=== PATIENT | male | born 1995 | race Caucasian/White ===

== ENCOUNTER 2017-01-15 06:23 | Inpatient (IN) | payer OTHER ==
[~2017-01-15] VITALS: Ht 180.3 cm; Wt 64.0 kg
[~2017-01-15 06:23] MED LIST: ADVI200C5 PO; ANBEEL MT; ARIP10TAB PO; ARIP1TAB2 PO; BUSP10TA PO; HYDR-3363 PO; MINI1CAP PO; PARO20TA3 PO; PRAZ1CAP PO
[2017-01-15] MEDS ORDERED: DIVA250T PO (10:35)
[2017-01-15] MEDS ORDERED: SERO50TA PO (10:35)
[2017-01-15] MEDS ORDERED: LITH300C PO (10:35)
[2017-01-15] MEDS ORDERED: DIVA125C5 PO (10:35)
[2017-01-15] MEDS ORDERED: ACETAMINOPHEN TAB 650MG DOSE (2X325MG) PO PRN (11:45)
[2017-01-15] MEDS ORDERED: traZODone 50 MG TAB PO PRN (11:45)
[2017-01-15] MEDS ORDERED: MAALOX 30 ML SUSP *UDC PO PRN (11:45)
[2017-01-15] MEDS ORDERED: MOM 30ML SUSPENSION UDC PO PRN (11:45)
[2017-01-15 12:48] VITALS: BP 113/64
[2017-01-15] MEDS: NICOTINE 21MG/24HR 1 EA TRANSDERMAL TD SCH (14:36)
[2017-01-15 18:00] VITALS: BP 100/70
[2017-01-16 06:30] VITALS: BP 106/56
[2017-01-16] MEDS: NICOTINE 21MG/24HR 1 EA TRANSDERMAL TD SCH (08:12)
--- NOTE | 2017-01-16 09:28 | HPEPDOC ---
[facility] Medical History & Physical Date of Admission Jan 15, 2017 History and Physical PCP: PCP [place] ATTENDING: Dr. Sam Pisano HPI: 21yoM transferred from [facility] following medical stabilization for ibuprofen overdose 10:30 AM 01/14/17. He had apparently taken 55 800 mg tablets of ibuprofen. According to records he had not been taking his medications. [facility] for Substance induced mood disorder, being medically examined today. No acute medical complaints today. Denies any fevers, chills, weakness, fatigue, MARTÍNEZ, CP, SOB, cough, palpitations, abdominal pain, N/V/D or changes in bowel or bladder habits. PMHx: Bipolar disorder PTSD Anxiety Depression ADHD Insomnia H/O Substance use H/O SI PSHX: denies SOCHX: Resides in: [facility] Marital Status: Single Kids: One child on the way Employment: Unemployed Tobacco use: 3 packs per day ETOH: Denies Illicit Drugs: Patient states has used "everything" IV Drug Use: Denies Tattoos done unprofessionally: Denies FAMHX: Mother: Alive, unknown Father: Alive, unknown Siblings: Alive, unknown Children: None Unexpected deaths due to medical reasons: None. ROS: As noted in HPI, otherwise 11pt ROS of systems reviewed and unremarkable. PE: GEN: 21 yo M, appears stated age. Well-nourished, well developed. No acute distress. Alert and oriented x 3. Anxious, rapid speech, tangential. HEENT: Normocephalic, atraumatic. Pupils are equal, round, and reactive to light. Extraocular movements are intact. No nystagmus appreciated. Sclera are nonicteric. Conjunctiva without injection. Nose midline. Nasal turbinates without bogginess. EACs both patent BL. TMs both visualized and barraza with good cone of light, no bulging or erythema. No facial asymmetry. Moist mucous membranes. Dentition fair. Pharynx pink and moist, no cobblestoning. Neck supple , trachea midline. No lymphadenopathy or thyromegaly appreciated. CHEST: Regular rate and rhythm, +S1, +S2 LUNGS: Clear to auscultation bilaterally. No wheezes, rales, or rhonchi. Breathing appears symmetric and easy. Patient is speaking in full sentences. No accessory muscle use. ABD: Round, soft, non-tender, non-distended. +Bowel sounds throughout. No rebound or guarding. No costovertebral angle tenderness. EXT: Pulses 2+ bilaterally dorsalis pedis and radial. No lower extremity edema appreciated. SKIN: I[place], dry, warm. Capillary refill <2sec. No rashes. NEURO: Alert and oriented x 3. Cranial nerves III-XII are intact. No focal deficits appreciated. [facility] WBC 4.4 Hgb 14.8 Hct 44.2 Plt 209 UA unremarkable Gluc 85 BUN 14 SCr 0.934 Na 138 K 3.7 Cl 106 Co2 29 Ca 9.3 TSH 1.180 Toxicology unremarkable EKG: NSR, early repolarization pattern. A&P: 21yoM transferred from [facility] following medical stabilization for ibuprofen overdose 10:30 AM 01/14/17. He had apparently taken 55 800 mg tablets of ibuprofen. According to records he had not been taking his medications. [facility] for Substance induced mood disorder 1. Psych. Plan per Psychiatry. EKG on file. 2. Nicotine dependence. Patch available. 3. Follow up with PCP on discharge. 4. Substance use. Per psychiatry. 5. Staff member Ed present throughout exam. Vital Signs Vital Signs Date Time Temp Pulse Resp B/P (MAP) Pulse Ox O2 Delivery O2 Flow Rate FiO2 01/16/17 06:30 98.1 85 18 106/56 (73) 01/15/17 12:48 100 Room Air Laboratory Data Labs 24H Laboratory Tests 2 01/15/17 11:35: Lab Scanned Report LAB OTHER Home Medications Scheduled Divalproex Sodium (Divalproex Sodium) 125 Mg Cap, 125 MG PO QHS TAKE WITH 250MG DIVALPROEX OBTAINED FROM PHARMACY Divalproex Sodium (Divalproex Sodium Dr) 250 Mg Tab, 250 MG PO QHS TAKE WITH 125MG DIVALPROEX OBTAINED FROM PHARMACY [place] Carbonate ([place] Carbonate) 300 Mg Cap, 300 MG PO QHS OBTAINED FROM PHARMACY Quetiapine Fumerate (Seroquel) 50 Mg Tab, 50 MG PO BID OBTAINED FROM PHARMACY Allergies Coded Allergies: Penicillins (Verified Allergy, Unknown, 01/15/17) Swelling Trazodone (Verified Allergy, Unknown, 02/08/16) Alina Chanel Jan 16, 2017 09:28
[2017-01-16] MEDS ORDERED: DIVALPROEX 125 MG TAB PO ONE ×2 (10:30→11:00)
[2017-01-16] MEDS: QUEtiapine FUMARATE 50 MG TAB PO SCH ×2 (11:55→21:56)
[2017-01-16] MEDS: DIVALPROEX 250 MG TAB PO SCH (11:56)
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
[2017-01-16 18:38] VITALS: BP 100/42
[2017-01-16] MEDS ORDERED: DIVALPROEX 125 MG TAB PO SCH ×2 (21:00)
[2017-01-16] MEDS: LITHIUM CARBONATE 300 MG CAP PO SCH (21:56)
[2017-01-16] MEDS: DIVALPROEX 125 MG TAB PO SCH (21:57)
[2017-01-17 06:51] VITALS: BP 126/71
[2017-01-17] MEDS: NICOTINE 21MG/24HR 1 EA TRANSDERMAL TD SCH (08:16)
[2017-01-17] MEDS: DIVALPROEX 250 MG TAB PO SCH (08:16)
[2017-01-17] MEDS: QUEtiapine FUMARATE 50 MG TAB PO SCH (08:53)
[2017-01-17] MEDS ORDERED: INFLUENZA QUADRIVALENT PF VACCINE 0.5ML SYRINGE (90686) IM ONE ×2 (09:00→16:00)
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
[2017-01-17 18:00] VITALS: BP 110/55
[2017-01-17] MEDS ORDERED: hydrOXYzine 50 MG TAB PO PRN (18:15)
[2017-01-17] MEDS: LITHIUM CARBONATE 300 MG CAP PO SCH (22:47)
[2017-01-17] MEDS: DIVALPROEX 125 MG TAB PO SCH (22:47)
[2017-01-18 06:49] VITALS: BP 110/55
[2017-01-18] MEDS: NICOTINE 21MG/24HR 1 EA TRANSDERMAL TD SCH (08:00)
[2017-01-18] MEDS: DIVALPROEX 500 MG TAB PO SCH (08:00)
[2017-01-18 18:00] VITALS: BP 117/69
--- NOTE | 2017-01-18 21:46 | MHIPN ---
DATE: 01/18/2017 SUBJECTIVE: The patient today states "I'm doing good." He states that he came into the hospital "because I wanted help to control my anger." He is denying any suicidal thoughts. He says he slept good. Has no complaints. MENTAL STATUS EXAMINATION: He is alert and oriented times three. Eye contact is fairly good. He is verbally spontaneous. Actually his speech appears to be quite pressured still. I am not eliciting any paranoid thinking today. Denies being suicidal or homicidal. Concentration is fair. Insight and judgment are fair. DIAGNOSES: 1. Bipolar disorder type one. 2. Posttraumatic stress disorder. TREATMENT PLAN: At this point, we will further observe and evaluate the patient for continued mood stabilization and continued resolution of paranoid thinking, and we will continue to titrate the medication as indicated.
[2017-01-18] MEDS: DIVALPROEX 125 MG TAB PO SCH (22:24)
[2017-01-18] MEDS: LITHIUM CARBONATE 300 MG CAP PO SCH (22:24)
[2017-01-19 06:45] VITALS: BP 119/66
[2017-01-19] MEDS: DIVALPROEX 500 MG TAB PO SCH (08:16)
[2017-01-19] MEDS: NICOTINE 21MG/24HR 1 EA TRANSDERMAL TD SCH (08:16)
[2017-01-19 18:00] VITALS: BP 121/74
--- NOTE | 2017-01-19 19:05 | MHIPN ---
DATE: 01/19/2017 The patient today states that he is doing fine. He says "I'm getting all the answers I was looking for." It is not clear what these answers are, but he does keep saying that he thinks he is doing good and he should be discharged tomorrow. He said that he slept good. MENTAL STATUS EXAMINATION: The patient is alert and oriented times three. Eye contact is fairly good. Speech appears to be less pressured today. There is no formal thought disorder. He says his mood is fine and his affect is constricted, but appropriate to his mood. I did not elicit any psychotic symptoms. He is denying suicidal or homicidal ideations. Concentration fair. Memory intact. Insight and judgment is fair. DIAGNOSES: Bipolar disorder. Posttraumatic stress disorder. TREATMENT PLAN: At this point, we will continue to monitor the patient for continued stabilization of his mood and continued resolution of any paranoid thinking or suicidal ideations.
[2017-01-19] MEDS: LITHIUM CARBONATE 300 MG CAP PO SCH (21:29)
[2017-01-19] MEDS: DIVALPROEX 125 MG TAB PO SCH (21:29)
[2017-01-20 06:28] VITALS: BP 106/69
[2017-01-20] MEDS: DIVALPROEX 500 MG TAB PO SCH (08:09)
[2017-01-20] MEDS: NICOTINE 21MG/24HR 1 EA TRANSDERMAL TD SCH (08:10)
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
[2017-01-20] MEDS ORDERED: ARIP5TA PO (10:45)
[2017-01-20] MEDS ORDERED: DEPA1TAB PO (10:45)
[2017-01-20] MEDS ORDERED: LITH300C PO (10:45)
[2017-01-20] MEDS ORDERED: NICO21PAT TD (10:45)
[2017-01-20] MEDS ORDERED: DEPA1TAB3 PO (10:45)
== END 2017-01-20 13:00 | disposition home or self-care (01) | DRG 753 ==
LOC: M ED 06:23 → M ED INP 11:35 → M PSY 12:41
PROVIDERS: ADMIT Psychiatry & Neurology Psychiatry; ATTEND Psychiatry & Neurology Psychiatry
DX: F31.9 Bipolar disorder, unspecified (principal); F17.210 Nicotine dependence, cigarettes, uncomplicated; F43.10 Post-traumatic stress disorder, unspecified; F12.10 Cannabis abuse, uncomplicated; Z79.899 Other long term (current) drug therapy; Z88.0 Allergy status to penicillin; Z88.8 Allergy status to other drugs, medicaments and biological substances

== ENCOUNTER 2018-02-07 02:42 | Emergency (ER) | payer MEDICAID, SELFPAY, OTHER ==
[2018-02-07] MEDS: CHARCOAL ACTIVATED LIQUID 25 GM/120 ML BTL PO ×2 (03:15)
[2018-02-07] MEDS: NS 1,000 ML IV ×6 (03:16→08:50)
[2018-02-07 03:17] LABS: BASO % 0.3 % (0.0-1.0); EOS # 0.1 10^3/uL (0.0-0.50); EOS % 2.2 % (0.0-3.0); HEMATOCRIT 45.2 % (42.0-52.0); HEMOGLOBIN 15.2 g/dl (13.5-17.5); IMMATURE GRANULOCYTE % 0.3 % (0-3.0); LYMPH # 1.8 10^3/uL (1.5-6.5); LYMPH % 27.6 % (24.0-44.0); MEAN CORPUSCULAR HEMOGLOBIN 30.8 pg (27.0-33.0); MEAN CORPUSCULAR HGB CONC 33.6 g/dl (32.0-36.5); MEAN CORPUSCULAR VOLUME 91.7 fl (80.0-96.0); MONO # 0.7 10^3/uL (0.0-0.8); MONO % 11.4 % (0.0-5.0); NEUTROPHILS # 3.7 10^3/uL (1.8-7.7); NEUTROPHILS % 58.2 % (36.0-66.0); PLATELET COUNT, AUTOMATED 222 10^3/uL (150-450); RED BLOOD COUNT 4.93 10^6/uL (4.30-6.10); RED CELL DISTRIBUTION WIDTH 12.9 % (11.5-14.5); WHITE BLOOD COUNT 6.4 10^3/uL (4.0-10.0)
[2018-02-07 03:54] LABS: ACETAMINOPHEN LEVEL < 2.0 UG/ML (10.0-30.0); ALBUMIN 4.5 GM/DL (3.2-5.2); ALBUMIN/GLOBULIN RATIO 1.41 (1.00-1.93); ALKALINE PHOSPHATASE 61 U/L (45-117); ALT/SGPT 67 U/L (12-78); ANION GAP 8 MEQ/L (8-16); AST/SGOT 33 U/L (7-37); BILIRUBIN,DIRECT 0.1 MG/DL (0.0-0.2); BILIRUBIN,TOTAL 0.5 MG/DL (0.2-1.0); BLOOD UREA NITROGEN 10 MG/DL (7-18); CALCIUM LEVEL 9.1 MG/DL (8.5-10.1); CARBON DIOXIDE LEVEL 24 MEQ/L (21-32); CHLORIDE LEVEL 107 MEQ/L (98-107); CPK CREATINE PHOSPHOKINASE 199 U/L (39-308); CREATININE FOR GFR 0.87 MG/DL (0.70-1.30); ETHYL ALCOHOL (ETHANOL) < 0.003 % (0.000-0.010); GLOMERULAR FILTRATION RATE > 60.0 (>60); GLUCOSE, FASTING 147 MG/DL (70-100); POTASSIUM SERUM 3.7 MEQ/L (3.5-5.1); SALICYLATE LEVEL 2.4 MG/DL (5.0-30.0); SODIUM LEVEL 139 MEQ/L (136-145); TOTAL PROTEIN 7.7 GM/DL (6.4-8.2)
[2018-02-07 04:26] LABS: BEDSIDE GLUCOSE 153 MG/DL (70-105)
[2018-02-07 06:23] LABS: AMPHETAMINES LEVEL URINE NEGATIVE (NEGATIVE); BARBITURATES URINE NEGATIVE (NEGATIVE); BENZODIAZEPINES URINE NEGATIVE (NEGATIVE); CANNABINOIDS URINE POSITIVE (NEGATIVE); COCAINE METABOLITE URINE NEGATIVE (NEGATIVE); METHADONE URINE NEGATIVE (NEGATIVE); OPIATES URINE NEGATIVE (NEGATIVE); PHENCYCLIDINE URINE NEGATIVE (NEGATIVE)
[2018-02-07] MEDS ORDERED: NS 1,000 ML IV ×2 (06:45)
== END 2018-02-07 22:25 | disposition short-term general hospital (02) ==
LOC: M ED 02:42
DX: T50.992A Poisoning by other drugs, medicaments and biological substances, intentional self-harm, initial encounter (principal); Y92.89 Other specified places as the place of occurrence of the external cause; F33.9 Major depressive disorder, recurrent, unspecified; F19.10 Other psychoactive substance abuse, uncomplicated; Z79.899 Other long term (current) drug therapy; Z88.0 Allergy status to penicillin; Z88.8 Allergy status to other drugs, medicaments and biological substances; F17.210 Nicotine dependence, cigarettes, uncomplicated
CPT/HCPCS: 93005

== ENCOUNTER 2018-03-18 19:51 | Inpatient (IN) | payer MEDICAID, OTHER, SELFPAY ==
[2018-03-18 21:02] LABS: HEMATOCRIT 44.9 % (42.0-52.0); HEMOGLOBIN 15.3 g/dl (13.5-17.5); MEAN CORPUSCULAR HEMOGLOBIN 31.2 pg (27.0-33.0); MEAN CORPUSCULAR HGB CONC 34.1 g/dl (32.0-36.5); MEAN CORPUSCULAR VOLUME 91.4 fl (80.0-96.0); PLATELET COUNT, AUTOMATED 251 10^3/uL (150-450); RED BLOOD COUNT 4.91 10^6/uL (4.30-6.10); RED CELL DISTRIBUTION WIDTH 12.9 % (11.5-14.5); WHITE BLOOD COUNT 7.5 10^3/uL (4.0-10.0)
[2018-03-18 21:26] LABS: ACETAMINOPHEN LEVEL < 2.0 UG/ML (10.0-30.0); ALBUMIN 4.8 GM/DL (3.2-5.2); ALBUMIN/GLOBULIN RATIO 1.41 (1.00-1.93); ALKALINE PHOSPHATASE 52 U/L (45-117); ALT/SGPT 152 U/L (12-78); ANION GAP 6 MEQ/L (8-16); AST/SGOT 52 U/L (7-37); BILIRUBIN,DIRECT < 0.1 MG/DL (0.0-0.2); BILIRUBIN,TOTAL 0.5 MG/DL (0.2-1.0); BLOOD UREA NITROGEN 11 MG/DL (7-18); CALCIUM LEVEL 9.2 MG/DL (8.5-10.1); CARBON DIOXIDE LEVEL 28 MEQ/L (21-32); CHLORIDE LEVEL 104 MEQ/L (98-107); ETHYL ALCOHOL (ETHANOL) < 0.003 % (0.000-0.010); GLOMERULAR FILTRATION RATE > 60.0 (>60); GLUCOSE, FASTING 95 MG/DL (70-100); LITHIUM LEVEL < 0.20 MEQ/L (0.60-1.20); POTASSIUM SERUM 4.4 MEQ/L (3.5-5.1); SALICYLATE LEVEL 2.5 MG/DL (5.0-30.0); SODIUM LEVEL 138 MEQ/L (136-145); TOTAL PROTEIN 8.2 GM/DL (6.4-8.2); VALPROIC ACID (DEPAKOTE) 7.4 UG/ML (50.0-100.0)
[2018-03-18 22:06] LABS: AMPHETAMINES LEVEL URINE NEGATIVE (NEGATIVE); BARBITURATES URINE NEGATIVE (NEGATIVE); BENZODIAZEPINES URINE NEGATIVE (NEGATIVE); CANNABINOIDS URINE POSITIVE (NEGATIVE); COCAINE METABOLITE URINE NEGATIVE (NEGATIVE); METHADONE URINE NEGATIVE (NEGATIVE); OPIATES URINE NEGATIVE (NEGATIVE); PHENCYCLIDINE URINE NEGATIVE (NEGATIVE)
[2018-03-18] MEDS ORDERED: MOM 30ML SUSPENSION UDC PO (23:00)
[2018-03-18] MEDS ORDERED: hydrOXYzine 50 MG TAB PO (23:00)
[2018-03-18] MEDS ORDERED: MAALOX 30 ML SUSP *UDC PO (23:00)
[2018-03-19] MEDS: ACETAMINOPHEN TAB 650MG DOSE (2X325MG) PO ×2 (01:12→20:46)
[2018-03-19] MEDS: OLANZapine ORAL DISINTEGRATING TAB 5MG PO (01:12)
[2018-03-19] MEDS: MIRTAZAPINE 15 MG TAB PO (20:45)
[2018-03-19] MEDS: QUEtiapine FUMARATE 100 MG TAB PO (22:40)
[2018-03-20 07:21] LABS: ALBUMIN 3.9 GM/DL (3.2-5.2); ALKALINE PHOSPHATASE 46 U/L (45-117); ALT/SGPT 136 U/L (12-78); ANION GAP 6 MEQ/L (8-16); AST/SGOT 54 U/L (7-37); BILIRUBIN,TOTAL 0.3 MG/DL (0.2-1.0); BLOOD UREA NITROGEN 11 MG/DL (7-18); CALCIUM LEVEL 9.1 MG/DL (8.5-10.1); CARBON DIOXIDE LEVEL 27 MEQ/L (21-32); CHLORIDE LEVEL 107 MEQ/L (98-107); GLOMERULAR FILTRATION RATE > 60.0 (>60); GLUCOSE, FASTING 92 MG/DL (70-100); POTASSIUM SERUM 4.2 MEQ/L (3.5-5.1); SODIUM LEVEL 140 MEQ/L (136-145); TOTAL PROTEIN 6.9 GM/DL (6.4-8.2)
[2018-03-20 16:18] LABS: HEPATITIS C VIRUS ABY INDEX > 11.0 INDEX (<0.8)
[2018-03-20 16:18] LABS: HEPATITIS A ANTIBODY IGM NEGATIVE (NEGATIVE); HEPATITIS B CORE ANTIBODY IGM NEGATIVE (NEGATIVE); HEPATITIS B SURFACE ANTIGEN NEGATIVE (NEGATIVE)
[2018-03-25 00:06] LABS: HCV RNA NAA QUALITATIVE Positive (Negative)
== END 2018-03-20 15:17 | disposition home or self-care (01) | DRG 753 ==
LOC: M ED 19:51 → M ED INP 22:55 → M PSY 23:47
DX: F31.9 Bipolar disorder, unspecified (principal); B18.2 Chronic viral hepatitis C; F43.10 Post-traumatic stress disorder, unspecified; F90.9 Attention-deficit hyperactivity disorder, unspecified type; F10.10 Alcohol abuse, uncomplicated; F14.90 Cocaine use, unspecified, uncomplicated; F41.9 Anxiety disorder, unspecified; G47.00 Insomnia, unspecified; F17.200 Nicotine dependence, unspecified, uncomplicated; Z88.0 Allergy status to penicillin

== ENCOUNTER 2018-03-27 17:38 | Emergency (ER) | payer MEDICAID ==
[2018-03-27 18:12] LABS: HEMATOCRIT 41.6 % (42.0-52.0); HEMOGLOBIN 14.4 g/dl (13.5-17.5); MEAN CORPUSCULAR HEMOGLOBIN 31.6 pg (27.0-33.0); MEAN CORPUSCULAR HGB CONC 34.6 g/dl (32.0-36.5); MEAN CORPUSCULAR VOLUME 91.4 fl (80.0-96.0); PLATELET COUNT, AUTOMATED 263 10^3/uL (150-450); RED BLOOD COUNT 4.55 10^6/uL (4.30-6.10); RED CELL DISTRIBUTION WIDTH 13.3 % (11.5-14.5); WHITE BLOOD COUNT 8.5 10^3/uL (4.0-10.0)
[2018-03-27 18:26] LABS: AMPHETAMINES LEVEL URINE POSITIVE (NEGATIVE); BARBITURATES URINE NEGATIVE (NEGATIVE); BENZODIAZEPINES URINE NEGATIVE (NEGATIVE); CANNABINOIDS URINE POSITIVE (NEGATIVE); COCAINE METABOLITE URINE NEGATIVE (NEGATIVE); METHADONE URINE NEGATIVE (NEGATIVE); OPIATES URINE NEGATIVE (NEGATIVE); PHENCYCLIDINE URINE NEGATIVE (NEGATIVE)
[2018-03-27 19:04] LABS: ACETAMINOPHEN LEVEL < 2.0 UG/ML (10.0-30.0); ALBUMIN 4.4 GM/DL (3.2-5.2); ALBUMIN/GLOBULIN RATIO 1.26 (1.00-1.93); ALKALINE PHOSPHATASE 59 U/L (45-117); ALT/SGPT 111 U/L (12-78); ANION GAP 11 MEQ/L (8-16); AST/SGOT 41 U/L (7-37); BILIRUBIN,DIRECT 0.2 MG/DL (0.0-0.2); BILIRUBIN,TOTAL 0.4 MG/DL (0.2-1.0); BLOOD UREA NITROGEN 7 MG/DL (7-18); CALCIUM LEVEL 8.8 MG/DL (8.5-10.1); CARBON DIOXIDE LEVEL 27 MEQ/L (21-32); CHLORIDE LEVEL 102 MEQ/L (98-107); CPK CREATINE PHOSPHOKINASE 302 U/L (39-308); ETHYL ALCOHOL (ETHANOL) < 0.003 % (0.000-0.010); GLOMERULAR FILTRATION RATE > 60.0 (>60); GLUCOSE, FASTING 90 MG/DL (70-100); POTASSIUM SERUM 3.8 MEQ/L (3.5-5.1); SALICYLATE LEVEL 2.7 MG/DL (5.0-30.0); SODIUM LEVEL 140 MEQ/L (136-145); TOTAL PROTEIN 7.9 GM/DL (6.4-8.2)
== END 2018-03-27 20:49 | disposition home or self-care (01) ==
LOC: M ED 17:38
DX: F19.10 Other psychoactive substance abuse, uncomplicated (principal); F43.10 Post-traumatic stress disorder, unspecified; Z88.0 Allergy status to penicillin; Z88.8 Allergy status to other drugs, medicaments and biological substances; Z91.018 Allergy to other foods
CPT/HCPCS: 80320

== ENCOUNTER 2018-04-16 21:46 | Emergency (ER) | payer MEDICAID, SELFPAY ==
[~2018-04-16 21:46] MED LIST changes: +ARIP5TA PO; +DEPA1TAB PO; +DEPA1TAB3 PO; +DIVA1CAP PO; +DIVA250T67 PO; +LITH300C PO; +MIRT30TA3 PO; +NICO21PAT TD; +QUET1TAB8 PO; +SERO50TA PO
[2018-04-16 22:10] VITALS: BP 128/70
[2018-04-16 22:17] LABS: HEMATOCRIT 45.6 % (42.0-52.0); HEMOGLOBIN 15.5 g/dl (13.5-17.5); MEAN CORPUSCULAR HEMOGLOBIN 31.2 pg (27.0-33.0); MEAN CORPUSCULAR VOLUME 91.8 fl (80.0-96.0); PLATELET COUNT, AUTOMATED 254 10^3/uL (150-450); RED BLOOD COUNT 4.97 10^6/uL (4.30-6.10); WHITE BLOOD COUNT 6.7 10^3/uL (4.0-10.0)
[2018-04-16 22:37] LABS: AMPHETAMINES LEVEL URINE NEGATIVE (NEGATIVE); BARBITURATES URINE NEGATIVE (NEGATIVE); BENZODIAZEPINES URINE NEGATIVE (NEGATIVE); CANNABINOIDS URINE POSITIVE (NEGATIVE); COCAINE METABOLITE URINE NEGATIVE (NEGATIVE); METHADONE URINE NEGATIVE (NEGATIVE); OPIATES URINE NEGATIVE (NEGATIVE); PHENCYCLIDINE URINE NEGATIVE (NEGATIVE)
[2018-04-16 22:46] LABS: ACETAMINOPHEN LEVEL < 2.0 UG/ML (10.0-30.0); ALBUMIN 4.3 GM/DL (3.2-5.2); ALT/SGPT 67 U/L (12-78); BILIRUBIN,DIRECT 0.2 MG/DL (0.0-0.2); BILIRUBIN,TOTAL 0.6 MG/DL (0.2-1.0); BLOOD UREA NITROGEN 9 MG/DL (7-18); CALCIUM LEVEL 8.9 MG/DL (8.5-10.1); CARBON DIOXIDE LEVEL 28 MEQ/L (21-32); CHLORIDE LEVEL 105 MEQ/L (98-107); CREATININE FOR GFR 0.98 MG/DL (0.70-1.30); ETHYL ALCOHOL (ETHANOL) < 0.003 % (0.000-0.010); GLOMERULAR FILTRATION RATE > 60.0 (>60); GLUCOSE, FASTING 85 MG/DL (70-100); SALICYLATE LEVEL 3.2 MG/DL (5.0-30.0); SODIUM LEVEL 138 MEQ/L (136-145); TOTAL PROTEIN 7.7 GM/DL (6.4-8.2)
--- NOTE | 2018-04-17 01:05 | REP ---
Clinical: Trauma. Technique: AP, lateral, bilateral oblique views right hand . Findings: The osseous structures and joint spaces are intact and normal. There is no evidence for acute fracture or dislocation. Surrounding soft tissues are unremarkable. No subcutaneous emphysema or radiodense foreign body. Impression: Normal right hand series . No acute fracture or dislocation. Electronically Signed by Suman Gaxiola MD 04/17/2018 12:56 A
== END 2018-04-17 00:07 | disposition home or self-care (01) ==
LOC: M ED 21:46
DX: F41.9 Anxiety disorder, unspecified (principal); S60.221A Contusion of right hand, initial encounter; W22.8XXA Striking against or struck by other objects, initial encounter; Y92.9 Unspecified place or not applicable; Y93.89 Activity, other specified; Y99.9 Unspecified external cause status; J45.909 Unspecified asthma, uncomplicated; F31.9 Bipolar disorder, unspecified; F43.10 Post-traumatic stress disorder, unspecified; F12.10 Cannabis abuse, uncomplicated; Z88.0 Allergy status to penicillin; Z88.8 Allergy status to other drugs, medicaments and biological substances; Z91.018 Allergy to other foods
CPT/HCPCS: 73130; 80048; 80076; 80307; 84443; 85027; 99284; G0480

== ENCOUNTER 2018-05-10 09:43 | Emergency (ER) | payer MEDICAID ==
[~2018-05-10] VITALS: Ht 177.8 cm; Wt 69.8 kg
[2018-05-10 09:43] VITALS: BP 135/79
[2018-05-10] MEDS ORDERED: LIDVISCBTL TOP (10:27)
[2018-05-10] MEDS ORDERED: CLIN150C14 PO (10:27)
[2018-05-10] MEDS ORDERED: IBUP-1022 PO (10:27)
[2018-05-10] MEDS ORDERED: PERC5TAB12 PO (10:28)
[2018-05-10] MEDS ORDERED: KETOROLAC 60 MG/2 ML VIAL (J1885) IM ONE (10:30)
== END 2018-05-10 10:39 | disposition home or self-care (01) ==
LOC: M ED 09:43
DX: K02.9 Dental caries, unspecified (principal); K08.89 Other specified disorders of teeth and supporting structures; S02.5XXA Fracture of tooth (traumatic), initial encounter for closed fracture; X58.XXXA Exposure to other specified factors, initial encounter; Y92.9 Unspecified place or not applicable; Y93.89 Activity, other specified; Y99.9 Unspecified external cause status; R51 Headache; J45.909 Unspecified asthma, uncomplicated; F31.9 Bipolar disorder, unspecified; F43.10 Post-traumatic stress disorder, unspecified; F11.10 Opioid abuse, uncomplicated; Z86.19 Personal history of other infectious and parasitic diseases; Z72.0 Tobacco use; Z91.018 Allergy to other foods; Z88.0 Allergy status to penicillin; Z88.8 Allergy status to other drugs, medicaments and biological substances
CPT/HCPCS: 96372; 99282; J1885

== ENCOUNTER → 2018-05-13 | Outpatient (CLI) | payer MEDICAID ==
[~2018-05-13] MED LIST changes: +CLIN150C14 PO; +IBUP-1022 PO; +LIDVISCBTL TOP; +PERC5TAB12 PO
== END ==
LOC: M OUTALCOH 07:57
PROVIDERS: ATTEND Psychiatry & Neurology Psychiatry
DX: Z13.89 Encounter for screening for other disorder (principal); F11.20 Opioid dependence, uncomplicated; F15.20 Other stimulant dependence, uncomplicated

== ENCOUNTER 2018-07-22 21:51 | Emergency (ER) | payer MEDICAID, OTHER ==
[~2018-07-22] VITALS: Ht 177.8 cm; Wt 69.5 kg
[2018-07-22 21:51] VITALS: BP 134/75
[~2018-07-22 21:51] MED LIST changes: -ARIP10TAB PO; +ARIP1TAB PO; +ARIP1TAB6 PO; -ARIP5TA PO
[2018-07-22] MEDS ORDERED: IBUPROFEN 600 MG TAB PO ONE (22:30)
[2018-07-22] MEDS ORDERED: CLINDAMYCIN 150 MG CAP PO ONE (22:30)
[2018-07-22] MEDS ORDERED: CLIN150C14 PO (22:32)
[2018-07-22] MEDS ORDERED: IBUP-1022 PO (22:33)
== END 2018-07-22 22:58 | disposition home or self-care (01) ==
LOC: M ED 21:51
DX: K08.89 Other specified disorders of teeth and supporting structures (principal); Z86.19 Personal history of other infectious and parasitic diseases; F43.10 Post-traumatic stress disorder, unspecified; F32.9 Major depressive disorder, single episode, unspecified; Z72.0 Tobacco use; Z88.0 Allergy status to penicillin; Z88.8 Allergy status to other drugs, medicaments and biological substances; Z91.018 Allergy to other foods

== ENCOUNTER → 2018-08-17 | Outpatient (CLI) | payer OTHER ==
[~2018-08-17] MED LIST changes: +REGL10TA6 PO; +SUBO2MIS SL
[2018-08-17 15:25] LABS: HEMATOCRIT 43.6 % (42.0-52.0); HEMOGLOBIN 14.5 g/dl (13.5-17.5); MEAN CORPUSCULAR HEMOGLOBIN 30.8 pg (27.0-33.0); MEAN CORPUSCULAR HGB CONC 33.3 g/dl (32.0-36.5); MEAN CORPUSCULAR VOLUME 92.6 fl (80.0-96.0); PLATELET COUNT, AUTOMATED 206 10^3/uL (150-450); RED BLOOD COUNT 4.71 10^6/uL (4.30-6.10); WHITE BLOOD COUNT 4.7 10^3/uL (4.0-10.0)
[2018-08-17 15:49] LABS: ALBUMIN 3.9 GM/DL (3.2-5.2); ALT/SGPT 55 U/L (12-78); BILIRUBIN,TOTAL 0.3 MG/DL (0.2-1.0); BLOOD UREA NITROGEN 10 MG/DL (7-18); CALCIUM LEVEL 8.6 MG/DL (8.5-10.1); CARBON DIOXIDE LEVEL 27 MEQ/L (21-32); CHLORIDE LEVEL 107 MEQ/L (98-107); CREATININE FOR GFR 0.88 MG/DL (0.70-1.30); GLOMERULAR FILTRATION RATE > 60.0 (>60); GLUCOSE, FASTING 85 MG/DL (70-100); SODIUM LEVEL 140 MEQ/L (136-145); TOTAL PROTEIN 7.3 GM/DL (6.4-8.2)
[2018-08-17 16:11] LABS: HEPATITIS B SURFACE ANTIGEN NEGATIVE (NEGATIVE)
[2018-08-17 16:39] LABS: HIV 1&2 SCREEN CENTAUR NEGATIVE (NEGATIVE)
[2018-08-17 17:00] LABS: HEPATITIS C VIRUS ABY INDEX > 11.0 INDEX (<0.8)
[2018-08-17 17:06] LABS: CHLAMYDIA DNA AMPLIFICATION NEGATIVE (NEGATIVE); GC DNA AMPLIFICATION NEGATIVE (NEGATIVE)
--- NOTE | 2018-08-17 18:49 | ECGEPIP ---
Stationary ECG Study [facility] Test Date: 2018-08-17 Pat Name: STACIA OZUNA Department: Room: - Gender: M Engineering Administrator: : [id number] Requested By: Kory Welch Order Number: [id number] Reading MD: Nataly Smith Measurements Intervals Centre Rate: 75 P: 46 CO: 169 QRS: 86 QRSD: 98 T: 44 QT: 354 QTc: 397 Interpretive Statements SINUS RHYTHM SIMILAR TO 02/07/18 Electronically Signed On 08-17-2018 18:48:32 EDT by Nataly Smith
== END ==
LOC: M EKG 14:17 → M LAB 14:17
PROVIDERS: ATTEND Family Medicine
DX: F11.20 Opioid dependence, uncomplicated (principal)

== ENCOUNTER 2018-08-25 22:21 | Emergency (ER) | payer OTHER ==
[~2018-08-25] VITALS: Ht 177.8 cm; Wt 64.5 kg
[~2018-08-25 22:21] MED LIST changes: -REGL10TA6 PO; -SUBO2MIS SL
[2018-08-25] MEDS ORDERED: SUBO2MIS SL (22:23)
[2018-08-25] MEDS ORDERED: METOCLOPRAMIDE INJ 10MG/2ML VIAL (J2765) IV ONE (23:15)
[2018-08-25] MEDS ORDERED: NS 1,000 ML IV ONE (23:15)
[2018-08-25 23:24] LABS: BASO % 0.4 % (0.0-1.0); EOS # 0.1 10^3/uL (0.0-0.50); EOS % 1.9 % (0.0-3.0); HEMATOCRIT 45.6 % (42.0-52.0); HEMOGLOBIN 15.2 g/dl (13.5-17.5); LYMPH # 2.2 10^3/uL (1.5-6.5); MEAN CORPUSCULAR HEMOGLOBIN 31.5 pg (27.0-33.0); MEAN CORPUSCULAR HGB CONC 33.3 g/dl (32.0-36.5); MEAN CORPUSCULAR VOLUME 94.4 fl (80.0-96.0); MONO % 13.2 % (0.0-5.0); NEUTROPHILS % 54.4 % (36.0-66.0); PLATELET COUNT, AUTOMATED 235 10^3/uL (150-450); RED BLOOD COUNT 4.83 10^6/uL (4.30-6.10); WHITE BLOOD COUNT 7.3 10^3/uL (4.0-10.0)
[2018-08-25 23:44] LABS: ALBUMIN 4.3 GM/DL (3.2-5.2); ALT/SGPT 44 U/L (12-78); BILIRUBIN,DIRECT 0.2 MG/DL (0.0-0.2); BILIRUBIN,TOTAL 0.6 MG/DL (0.2-1.0); BLOOD UREA NITROGEN 14 MG/DL (7-18); CALCIUM LEVEL 9.1 MG/DL (8.5-10.1); CARBON DIOXIDE LEVEL 31 MEQ/L (21-32); CHLORIDE LEVEL 102 MEQ/L (98-107); CREATININE FOR GFR 0.94 MG/DL (0.70-1.30); GLOMERULAR FILTRATION RATE > 60.0 (>60); GLUCOSE, FASTING 83 MG/DL (70-100); LIPASE 83 U/L (73-393); POTASSIUM SERUM 4.1 MEQ/L (3.5-5.1); SODIUM LEVEL 141 MEQ/L (136-145); TOTAL PROTEIN 8.2 GM/DL (6.4-8.2)
[2018-08-26 00:12] LABS: INFLUENZA A AMPLIFICATION NEGATIVE (NEGATIVE); INFLUENZA B AMPLIFICATION NEGATIVE (NEGATIVE)
[2018-08-26] MEDS ORDERED: REGL10TA6 PO (00:42)
[2018-08-26 00:47] VITALS: BP 119/76
--- NOTE | 2018-08-26 11:38 | REP ---
ABDOMEN, FLAT UPRIGHT PA CHEST, THREE VIEWS: HISTORY: Abdominal pain. A small amount of air is present in the intestine. There are no air fluid levels or dilated loops of intestine. There is no pneumoperitoneum. The lungs are clear. IMPRESSION: Nonspecific bowel gas pattern. Electronically Signed by Goyo Shaw MD 08/26/2018 11:40 A
== END 2018-08-26 00:53 | disposition home or self-care (01) ==
LOC: M ED 22:21
DX: R11.2 Nausea with vomiting, unspecified (principal); R19.7 Diarrhea, unspecified
CPT/HCPCS: 74021; 80048; 80076; 83690; 85025; 87502; 96361; 96374; 99284; J2765

== ENCOUNTER 2018-09-05 20:36 | Emergency (ER) | payer OTHER ==
[~2018-09-05] VITALS: Ht 177.8 cm; Wt 63.6 kg
[~2018-09-05 20:36] MED LIST changes: +REGL10TA6 PO; +SUBO2MIS SL
[2018-09-05 22:04] VITALS: BP 120/65
== END 2018-09-05 22:19 | disposition home or self-care (01) ==
LOC: M ED 20:36
DX: F33.9 Major depressive disorder, recurrent, unspecified (principal); F43.10 Post-traumatic stress disorder, unspecified; F41.9 Anxiety disorder, unspecified; F90.9 Attention-deficit hyperactivity disorder, unspecified type; G47.00 Insomnia, unspecified; Z88.0 Allergy status to penicillin; Z88.8 Allergy status to other drugs, medicaments and biological substances; Z91.018 Allergy to other foods; Z79.899 Other long term (current) drug therapy

== ENCOUNTER 2019-03-28 04:42 | Inpatient (IN) | payer MEDICAID, OTHER ==
[~2019-03-28] VITALS: Ht 177.8 cm; Wt 71.0 kg
[2019-03-28] MEDS ORDERED: RISP0.5T3 PO ×2 (05:29→10:43)
[2019-03-28] MEDS ORDERED: CLON0.2T PO (05:29)
[2019-03-28] MEDS ORDERED: FLUO10CA15 PO (05:29)
[2019-03-28 06:29] LABS: HEMATOCRIT 44.4 % (42.0-52.0); HEMOGLOBIN 14.3 g/dl (13.5-17.5); MEAN CORPUSCULAR HEMOGLOBIN 30.8 pg (27.0-33.0); MEAN CORPUSCULAR HGB CONC 32.2 g/dl (32.0-36.5); MEAN CORPUSCULAR VOLUME 95.5 fl (80.0-96.0); PLATELET COUNT, AUTOMATED 217 10^3/uL (150-450); RED BLOOD COUNT 4.65 10^6/uL (4.30-6.10); WHITE BLOOD COUNT 6.5 10^3/uL (4.0-10.0)
[2019-03-28 06:54] LABS: AMPHETAMINES LEVEL URINE NEGATIVE (NEGATIVE); BARBITURATES URINE NEGATIVE (NEGATIVE); BENZODIAZEPINES URINE NEGATIVE (NEGATIVE); CANNABINOIDS URINE NEGATIVE (NEGATIVE); COCAINE METABOLITE URINE NEGATIVE (NEGATIVE); METHADONE URINE NEGATIVE (NEGATIVE); OPIATES URINE NEGATIVE (NEGATIVE); PHENCYCLIDINE URINE NEGATIVE (NEGATIVE)
[2019-03-28 07:03] LABS: ACETAMINOPHEN LEVEL < 2.0 UG/ML (10.0-30.0); ALBUMIN 3.9 GM/DL (3.2-5.2); ALT/SGPT 32 U/L (12-78); BILIRUBIN,DIRECT 0.1 MG/DL (0.0-0.2); BILIRUBIN,TOTAL 0.2 MG/DL (0.2-1.0); BLOOD UREA NITROGEN 14 MG/DL (7-18); CALCIUM LEVEL 8.5 MG/DL (8.5-10.1); CARBON DIOXIDE LEVEL 26 MEQ/L (21-32); CHLORIDE LEVEL 108 MEQ/L (98-107); CREATININE FOR GFR 0.93 MG/DL (0.70-1.30); ETHYL ALCOHOL (ETHANOL) < 0.003 % (0.000-0.010); GLOMERULAR FILTRATION RATE > 60.0 (>60); GLUCOSE, FASTING 73 MG/DL (70-100); POTASSIUM SERUM 3.7 MEQ/L (3.5-5.1); SALICYLATE LEVEL 2.5 MG/DL (5.0-30.0); SODIUM LEVEL 141 MEQ/L (136-145); TOTAL PROTEIN 7.4 GM/DL (6.4-8.2)
[2019-03-28] MEDS ORDERED: MAALOX 30 ML SUSP *UDC PO PRN (10:00)
[2019-03-28] MEDS ORDERED: MOM 30ML SUSPENSION UDC PO PRN (10:00)
[2019-03-28] MEDS ORDERED: traZODone 50 MG TAB PO PRN (10:00)
[2019-03-28] MEDS ORDERED: OLANZapine ORAL DISINTEGRATING TAB 5MG PO PRN (10:00)
[2019-03-28] MEDS ORDERED: ACETAMINOPHEN TAB 650MG DOSE (2X325MG) PO PRN (10:00)
[2019-03-28 11:10] VITALS: BP 118/52
[2019-03-28 15:33] VITALS: BP 119/59
[2019-03-28] MEDS: cloNIDine 0.2 MG TAB PO SCH (20:54)
[2019-03-28] MEDS: risperiDONE 1 MG TAB PO SCH (20:54)
--- NOTE | 2019-03-28 21:51 | HPEPDOC ---
[facility] Medical History & Physical Date of Admission Mar 28, 2019 Date of Service: Mar 28, 2019 Attending Physician: SUZANNA AMAYA MD History and Physical CHIEF COMPLAINT: Admitted to inpatient mental health unit for Suicidal ideation HISTORY OF PRESENT ILLNESS: 23-year-old male with past medical history of hepatitis C, IV drug use, depression is admitted to inpatient mental health unit for worsening depression and suicidal ideation. He reports that over the past few months his life has taken a turn for the worse, which is that to him using more IV drugs along with increased drinking. He is also started cutting himself and eventually decided to bring himself and because he is concerned about his safety. He has no medical complaints at this time, denies any shortness of breath, chest pain, nausea, vomiting, abdominal pain or diarrhea. 10 point review of system is negative except for above PAST MEDICAL HISTORY: 1. Depression. 2. IV drug use. 3. Hepatitis C. PAST SURGICAL HISTORY: 1. None. SOCIAL HISTORY: Smokes 1-2 packs per day for the past 6 years. Drinking multiple drinks every day. Currently using meth heroin and crack FAMILY HISTORY: Mother with history of seizures ALLERGIES: Please see below. HOME MEDICATIONS: Please see below. PHYSICAL EXAMINATION: VITAL SIGNS: Please see below. GENERAL: No distress HEENT: Normocephalic, atraumatic, moist mucous membranes NECK: Supple CARDIOVASCULAR EXAMINATION: S1, S2, no murmurs RESPIRATORY EXAMINATION: Clear to auscultation, no wheezing ABDOMINAL EXAMINATION: Soft, nontender, nondistended, positive bowel sounds EXTREMITIES: Range of motion intact SKIN: No rash NEUROLOGICAL EXAMINATION: Alert and oriented 3, no focal deficits PSYCHIATRIC EXAMINATION: Calm and cooperative LABORATORY DATA: See below. MICROBIOLOGY: Please see below. ASSESSMENT: 43-year-old male with past mental history of hepatitis C, depression and IV drug use is admitted for suicidal ideation. PLAN: 1. Depression and suicidal ideation. Management as per primary team 2. Hepatitis C Never treated, recommend outpatient follow-up and treatment. Vital Signs Vital Signs Date Time Temp Pulse Resp B/P (MAP) Pulse Ox O2 Delivery O2 Flow Rate FiO2 03/28/19 20:54 119/59 03/28/19 15:33 99.3 64 14 03/28/19 11:10 Room Air 03/28/19 10:50 97 Laboratory Data Labs 24H Laboratory Tests 2 03/28/19 05:28: Nucleated Red Blood Cells % (auto) 0.0, Anion Gap 7L, Glomerular Filtration Rate > 60.0, Calcium Level 8.5, Total Bilirubin 0.2, Direct Bilirubin 0.1, Aspartate Amino Transf (AST/SGOT) 18, Alanine Aminotransferase (ALT/SGPT) 32, Alkaline Phosphatase 55, Total Protein 7.4, Albumin 3.9, Albumin/Globulin Ratio 1.11, Thyroid Stimulating Hormone (TSH) 2.780, Salicylates Level 2.5L, Urine Opiates Screen NEGATIVE, Urine Methadone Screen NEGATIVE, Acetaminophen Level < 2.0L, Urine Barbiturates Screen NEGATIVE, Urine Phencyclidine Screen NEGATIVE, Urine Amphetamines Screen NEGATIVE, Urine Benzodiazepines Screen NEGATIVE, Urine Cocaine Metabolite Screen NEGATIVE, Urine Cannabinoids Screen NEGATIVE, Ethyl A lcohol Level < 0.003 CBC/BMP Laboratory Tests 03/28/19 05:28 Home Medications Scheduled Clonidine HCl (Clonidine HCl) 0.2 Mg Tablet, 0.2 MG PO QHS Fluoxetine Hcl (Fluoxetine HCl) 10 Mg Capsule, 10 MG PO DAILY Risperidone (Risperidone) 0.5 Mg Tablet, 0.5 MG PO DAILY Risperidone (Risperidone) 0.5 Mg Tablet, 1 MG PO QHS Allergies Coded Allergies: Penicillins (Verified Allergy, Unknown, 07/22/18) Potato (Verified Allergy, Unknown, vomiting, 03/18/18) trazodone (Verified Allergy, Unknown, 07/22/18) A-FIB/CHADSVASC A-FIB History Current/History of A-Fib/PAF?: No SUZANNA AMAYA MD Mar 28, 2019 21:51
[2019-03-29 06:40] VITALS: BP 101/58
[2019-03-29] MEDS: risperiDONE 0.5 MG TAB PO SCH (08:20)
[2019-03-29] MEDS: FLUoxetine 10 MG CAP PO SCH (08:20)
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
[2019-03-29 13:00] VITALS: BP 130/60
[2019-03-29 16:36] VITALS: BP 132/64
[2019-03-29] MEDS: risperiDONE 1 MG TAB PO SCH (21:23)
[2019-03-29 21:26] VITALS: BP 114/66
[2019-03-29] MEDS: cloNIDine 0.2 MG TAB PO SCH (21:26)
[2019-03-30 06:06] VITALS: BP 115/54
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
[2019-03-30] MEDS ORDERED: RISP0.5T3 PO ×2 (08:29)
[2019-03-30] MEDS ORDERED: FLUO10CA15 PO (08:29)
[2019-03-30] MEDS ORDERED: CLON0.2T PO (08:29)
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
[2019-03-30] MEDS: FLUoxetine 10 MG CAP PO SCH (08:48)
[2019-03-30] MEDS: risperiDONE 0.5 MG TAB PO SCH (08:49)
== END 2019-03-30 10:55 | disposition home or self-care (01) | DRG 754 ==
LOC: M ED 04:42 → M ED INP 09:48 → M PSY 11:02
PROVIDERS: ADMIT Psychiatry & Neurology Psychiatry; ATTEND Psychiatry & Neurology Psychiatry
DX: F43.21 Adjustment disorder with depressed mood (principal); F33.2 Major depressive disorder, recurrent severe without psychotic features; F10.10 Alcohol abuse, uncomplicated; F11.10 Opioid abuse, uncomplicated; B19.20 Unspecified viral hepatitis C without hepatic coma; F17.210 Nicotine dependence, cigarettes, uncomplicated; F43.10 Post-traumatic stress disorder, unspecified; Z88.0 Allergy status to penicillin; Z88.8 Allergy status to other drugs, medicaments and biological substances; Z91.018 Allergy to other foods; Z79.899 Other long term (current) drug therapy; Z65.2 Problems related to release from prison; Z91.5 Personal history of self-harm

== ENCOUNTER 2019-04-15 01:33 | Emergency (ER) | payer MEDICAID ==
[~2019-04-15] VITALS: Ht 177.8 cm; Wt 72.7 kg
[~2019-04-15 01:33] MED LIST changes: +CLON0.2T PO; +FLUO10CA15 PO; +RISP0.5T3 PO
[2019-04-15 02:27] LABS: HEMOGLOBIN 15.2 g/dl (13.5-17.5); MEAN CORPUSCULAR HEMOGLOBIN 30.5 pg (27.0-33.0); MEAN CORPUSCULAR HGB CONC 32.3 g/dl (32.0-36.5); MEAN CORPUSCULAR VOLUME 94.2 fl (80.0-96.0); PLATELET COUNT, AUTOMATED 232 10^3/uL (150-450); RED BLOOD COUNT 4.99 10^6/uL (4.30-6.10); WHITE BLOOD COUNT 9.4 10^3/uL (4.0-10.0)
[2019-04-15 02:49] LABS: AMPHETAMINES LEVEL URINE NEGATIVE (NEGATIVE); BARBITURATES URINE NEGATIVE (NEGATIVE); BENZODIAZEPINES URINE NEGATIVE (NEGATIVE); CANNABINOIDS URINE NEGATIVE (NEGATIVE); COCAINE METABOLITE URINE NEGATIVE (NEGATIVE); METHADONE URINE NEGATIVE (NEGATIVE); OPIATES URINE NEGATIVE (NEGATIVE); PHENCYCLIDINE URINE NEGATIVE (NEGATIVE)
[2019-04-15 02:58] LABS: ACETAMINOPHEN LEVEL < 2.0 UG/ML (10.0-30.0); ALBUMIN 4.4 GM/DL (3.2-5.2); ALT/SGPT 24 U/L (12-78); BILIRUBIN,DIRECT 0.2 MG/DL (0.0-0.2); BILIRUBIN,TOTAL 0.4 MG/DL (0.2-1.0); BLOOD UREA NITROGEN 8 MG/DL (7-18); CALCIUM LEVEL 8.8 MG/DL (8.5-10.1); CARBON DIOXIDE LEVEL 26 MEQ/L (21-32); CHLORIDE LEVEL 108 MEQ/L (98-107); CREATININE FOR GFR 0.92 MG/DL (0.70-1.30); ETHYL ALCOHOL (ETHANOL) < 0.003 % (0.000-0.010); GLOMERULAR FILTRATION RATE > 60.0 (>60); GLUCOSE, FASTING 88 MG/DL (70-100); POTASSIUM SERUM 3.9 MEQ/L (3.5-5.1); SALICYLATE LEVEL 2.5 MG/DL (5.0-30.0); SODIUM LEVEL 142 MEQ/L (136-145); TOTAL PROTEIN 7.5 GM/DL (6.4-8.2)
[2019-04-15] MEDS ORDERED: FLUO10CA15 PO (04:06)
[2019-04-15] MEDS ORDERED: NARC1SPR (04:06)
[2019-04-15] MEDS ORDERED: CLON0.3T PO (04:06)
[2019-04-15] MEDS ORDERED: RISP0.5T3 PO (04:06)
[2019-04-15] MEDS ORDERED: RISP2TAB3 PO (04:06)
[2019-04-15 04:48] VITALS: BP 122/73
== END 2019-04-15 04:49 | disposition home or self-care (01) ==
LOC: M ED 01:33
DX: F43.0 Acute stress reaction (principal); Z91.5 Personal history of self-harm; F17.200 Nicotine dependence, unspecified, uncomplicated; Z79.899 Other long term (current) drug therapy; Z88.0 Allergy status to penicillin; Z88.8 Allergy status to other drugs, medicaments and biological substances; Z91.018 Allergy to other foods
CPT/HCPCS: 80048; 80076; 80307; 84443; 85027; 99284; G0480

== ENCOUNTER → 2019-04-20 | Outpatient (CLI) | payer MEDICAID ==
[~2019-04-20] MED LIST changes: +CLON0.3T PO; +NARC1SPR; +RISP2TAB3 PO
[2019-04-20 15:22] LABS: HEMOGLOBIN 15.2 g/dl (13.5-17.5); MEAN CORPUSCULAR HEMOGLOBIN 30.9 pg (27.0-33.0); MEAN CORPUSCULAR HGB CONC 32.3 g/dl (32.0-36.5); MEAN CORPUSCULAR VOLUME 95.5 fl (80.0-96.0); PLATELET COUNT, AUTOMATED 199 10^3/uL (150-450); RED BLOOD COUNT 4.92 10^6/uL (4.30-6.10); WHITE BLOOD COUNT 5.2 10^3/uL (4.0-10.0)
[2019-04-20 15:50] LABS: ALBUMIN 4.1 GM/DL (3.2-5.2); ALT/SGPT 22 U/L (12-78); BILIRUBIN,TOTAL 0.5 MG/DL (0.2-1.0); BLOOD UREA NITROGEN 11 MG/DL (7-18); CARBON DIOXIDE LEVEL 29 MEQ/L (21-32); CHLORIDE LEVEL 106 MEQ/L (98-107); GLOMERULAR FILTRATION RATE > 60.0 (>60); GLUCOSE, FASTING 70 MG/DL (70-100); POTASSIUM SERUM 4.2 MEQ/L (3.5-5.1); SODIUM LEVEL 139 MEQ/L (136-145); TOTAL PROTEIN 7.4 GM/DL (6.4-8.2)
[2019-04-20 16:56] LABS: CHLAMYDIA DNA AMPLIFICATION NEGATIVE (NEGATIVE); GC DNA AMPLIFICATION NEGATIVE (NEGATIVE)
--- NOTE | 2019-04-20 21:29 | ECGEPIP ---
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
[2019-04-21 10:44] LABS: HEPATITIS B SURFACE ANTIGEN NEGATIVE (NEGATIVE)
[2019-04-21 11:13] LABS: HIV 1&2 SCREEN CENTAUR NEGATIVE (NEGATIVE)
[2019-04-21 12:28] LABS: HEPATITIS C VIRUS ABY INDEX > 11.0 INDEX (<0.8)
== END ==
LOC: M LAB 14:52
PROVIDERS: ATTEND Family Medicine
DX: F11.20 Opioid dependence, uncomplicated (principal)

== ENCOUNTER 2019-05-15 22:11 | Emergency (ER) | payer OTHER ==
[~2019-05-15] VITALS: Ht 177.8 cm; Wt 68.5 kg
[~2019-05-15 22:11] MED LIST changes: +QUET100T2 PO; -QUET1TAB8 PO
[2019-05-15 22:12] VITALS: BP 119/59
[2019-05-15] MEDS ORDERED: METH10TA2 PO (22:18)
[2019-05-15] MEDS ORDERED: METOCLOPRAMIDE INJ 10MG/2ML VIAL (J2765) IV ONE (22:30)
[2019-05-15] MEDS ORDERED: NS 1,000 ML IV ONE (22:30)
[2019-05-15 22:52] LABS: BASO % 0.6 % (0.0-1.0); EOS # 0.1 10^3/uL (0.0-0.5); EOS % 2.8 % (0.0-3.0); HEMATOCRIT 43.7 % (42.0-52.0); HEMOGLOBIN 14.3 g/dl (13.5-17.5); LYMPH # 1.6 10^3/uL (1.5-5.0); LYMPH % 35.1 % (24.0-44.0); MEAN CORPUSCULAR HEMOGLOBIN 30.7 pg (27.0-33.0); MEAN CORPUSCULAR HGB CONC 32.7 g/dl (32.0-36.5); MEAN CORPUSCULAR VOLUME 93.8 fl (80.0-96.0); MONO # 0.6 10^3/uL (0.0-0.8); MONO % 11.9 % (0.0-5.0); NEUTROPHILS # 2.3 10^3/uL (1.5-8.5); NEUTROPHILS % 49.4 % (36.0-66.0); PLATELET COUNT, AUTOMATED 213 10^3/uL (150-450); RED BLOOD COUNT 4.66 10^6/uL (4.30-6.10); WHITE BLOOD COUNT 4.6 10^3/uL (4.0-10.0)
[2019-05-15 23:14] LABS: ALBUMIN 4.1 GM/DL (3.2-5.2); ALT/SGPT 39 U/L (12-78); BILIRUBIN,DIRECT 0.1 MG/DL (0.0-0.2); BILIRUBIN,TOTAL 0.3 MG/DL (0.2-1.0); BLOOD UREA NITROGEN 8 MG/DL (7-18); CARBON DIOXIDE LEVEL 31 MEQ/L (21-32); CHLORIDE LEVEL 105 MEQ/L (98-107); CREATININE FOR GFR 0.92 MG/DL (0.70-1.30); GLOMERULAR FILTRATION RATE > 60.0 (>60); GLUCOSE, FASTING 73 MG/DL (70-100); LIPASE 66 U/L (73-393); POTASSIUM SERUM 3.8 MEQ/L (3.5-5.1); SODIUM LEVEL 142 MEQ/L (136-145); TOTAL PROTEIN 7.2 GM/DL (6.4-8.2)
[2019-05-16 00:02] LABS: AMPHETAMINES LEVEL URINE NEGATIVE (NEGATIVE); BARBITURATES URINE NEGATIVE (NEGATIVE); BENZODIAZEPINES URINE NEGATIVE (NEGATIVE); CANNABINOIDS URINE NEGATIVE (NEGATIVE); COCAINE METABOLITE URINE NEGATIVE (NEGATIVE); METHADONE URINE POSITIVE (NEGATIVE); OPIATES URINE NEGATIVE (NEGATIVE); PHENCYCLIDINE URINE NEGATIVE (NEGATIVE)
--- NOTE | 2019-05-16 00:09 | REPVR ---
PROCEDURE INFORMATION: Exam: CT Abdomen And Pelvis Without Contrast Exam date and time: 05/15/2019 11:35 PM Age: 23 years old Clinical indication: Other: Hematuria; Additional info: Hematur TECHNIQUE: Imaging protocol: Computed tomography of the abdomen and pelvis without contrast. Radiation optimization: All CT scans at this facility use at least one of these dose optimization techniques: automated exposure control; mA and/or kV adjustment per patient size (includes targeted exams where dose is matched to clinical indication); or iterative reconstruction. COMPARISON: No relevant prior studies available. FINDINGS: Limited evaluation without enteric or IV contrast. Lungs: No suspicious mass or airspace process in the visualized lung bases. Liver: Noncontrast liver shows no obvious lesion. Gallbladder and bile ducts: Gallbladder is present and shows no evidence of gallstone. Pancreas: Noncontrast pancreas shows no obvious mass or adjacent fluid. Spleen: Noncontrast spleen shows no obvious focal deformity. Adrenals: Adrenal glands are normal in appearance. Kidneys and ureters: Kidneys show no stone or hydronephrosis. Stomach and bowel: No evidence of small bowel obstruction. Moderate pattern of colonic stool is present. Appendix: Normal caliber appendix is identified, with no adjacent inflammation. Intraperitoneal space: No pneumoperitoneum. Vasculature: No aortic aneurysm. Lymph nodes: No bulky lymphadenopathy. Bladder: Urinary bladder appears normal. Reproductive: No prostate enlargement. Bones/joints: Bony structures show no acute fracture or destructive process. IMPRESSION: No evidence of renal stone or obstruction and no abnormality of the bladder on noncontrast CT, to explain hematuria Electronically signed by: Jun Telles On 05/16/2019 00:07:53 AM
[2019-05-16] MEDS ORDERED: NS 500 ML IV ONE (00:15)
[2019-05-16] MEDS ORDERED: REGL10TA6 PO (00:29)
[2019-05-16] MEDS ORDERED: FOSFOMYCIN TROMETHAMINE 3 GM POWDER PACKET (MONUROL) PO ONE (00:30)
== END 2019-05-16 00:50 | disposition home or self-care (01) ==
LOC: M ED 22:11
DX: R11.10 Vomiting, unspecified (principal); N30.01 Acute cystitis with hematuria; F19.10 Other psychoactive substance abuse, uncomplicated; Z86.19 Personal history of other infectious and parasitic diseases; F17.200 Nicotine dependence, unspecified, uncomplicated; Z79.899 Other long term (current) drug therapy; Z88.0 Allergy status to penicillin; Z88.5 Allergy status to narcotic agent; Z91.018 Allergy to other foods
CPT/HCPCS: 74176; 80048; 80076; 80307; 81001; 83690; 85025; 96361; 96374; 99284; J2765

== ENCOUNTER 2019-06-10 21:20 | Inpatient (IN) | payer MEDICAID, OTHER ==
[~2019-06-10] VITALS: Ht 180.3 cm; Wt 65.0 kg
[~2019-06-10 21:20] MED LIST changes: +METH10TA2 PO
[2019-06-10 22:35] LABS: HEMATOCRIT 40.3 % (42.0-52.0); HEMOGLOBIN 13.4 g/dl (13.5-17.5); MEAN CORPUSCULAR HEMOGLOBIN 30.9 pg (27.0-33.0); MEAN CORPUSCULAR HGB CONC 33.3 g/dl (32.0-36.5); MEAN CORPUSCULAR VOLUME 92.9 fl (80.0-96.0); PLATELET COUNT, AUTOMATED 266 10^3/uL (150-450); RED BLOOD COUNT 4.34 10^6/uL (4.30-6.10); WHITE BLOOD COUNT 7.5 10^3/uL (4.0-10.0)
[2019-06-10] MEDS ORDERED: METH10SO PO (22:40)
[2019-06-10 23:11] LABS: AMPHETAMINES LEVEL URINE NEGATIVE (NEGATIVE); BARBITURATES URINE NEGATIVE (NEGATIVE); BENZODIAZEPINES URINE NEGATIVE (NEGATIVE); CANNABINOIDS URINE NEGATIVE (NEGATIVE); COCAINE METABOLITE URINE NEGATIVE (NEGATIVE); METHADONE URINE POSITIVE (NEGATIVE); OPIATES URINE NEGATIVE (NEGATIVE); PHENCYCLIDINE URINE NEGATIVE (NEGATIVE)
[2019-06-10 23:18] LABS: ACETAMINOPHEN LEVEL < 2.0 UG/ML (10.0-30.0); ALBUMIN 4.2 GM/DL (3.2-5.2); ALT/SGPT 30 U/L (12-78); BILIRUBIN,DIRECT < 0.1 MG/DL (0.0-0.2); BILIRUBIN,TOTAL 0.3 MG/DL (0.2-1.0); BLOOD UREA NITROGEN 7 MG/DL (7-18); CALCIUM LEVEL 8.7 MG/DL (8.5-10.1); CARBON DIOXIDE LEVEL 31 MEQ/L (21-32); CHLORIDE LEVEL 105 MEQ/L (98-107); CREATININE FOR GFR 0.89 MG/DL (0.70-1.30); ETHYL ALCOHOL (ETHANOL) < 0.003 % (0.000-0.010); GLOMERULAR FILTRATION RATE > 60.0 (>60); GLUCOSE, FASTING 96 MG/DL (70-100); SALICYLATE LEVEL 2.1 MG/DL (5.0-30.0); SODIUM LEVEL 140 MEQ/L (136-145); TOTAL PROTEIN 7.4 GM/DL (6.4-8.2)
--- NOTE | 2019-06-11 05:44 | ECGEPIP ---
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
[2019-06-11] MEDS ORDERED: traZODone 50 MG TAB PO PRN (11:45)
[2019-06-11] MEDS ORDERED: MOM 30ML SUSPENSION UDC PO PRN (11:45)
[2019-06-11] MEDS ORDERED: MAALOX 30 ML SUSP *UDC PO PRN (11:45)
[2019-06-11] MEDS ORDERED: ACETAMINOPHEN TAB 650MG DOSE (2X325MG) PO PRN (11:45)
[2019-06-11] MEDS ORDERED: PILL CUTTER 1 EACH XX PRN (12:00)
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
[2019-06-11] MEDS: METHADONE 10 MG TAB (S0109) PO SCH (15:06)
[2019-06-11] MEDS: NICOTINE 21MG/24HR 1 EA TRANSDERMAL TD SCH (15:07)
--- NOTE | 2019-06-11 15:59 | HPEPDOC ---
General Date of Admission Jun 11, 2019 at 11:33 Date of Service: Jun 11, 2019 Chief Complaint The patient is a 24-year-old male admitted with a reason for visit of Unspecified Depressive Disorder. Source: Patient Exam Limitations: No limitations Timing/Duration: Getting worse Severity: Moderate Associated Symptoms: Denies Symptoms History of Present Illness Patient is a 24-year-old male admitted to the behavioral health unit, for worsening depression. Patient reported that for about 2 months now, his depression has been deteriorating. He has taken antidepressants in the past, however, he is not currently on any antidepressants because of methadone. In the ED, he reported feeling suicidal and hopeless. He would like to be placed in a long-term rehabilitation facility. Patient denied any current HI/SI. Home Medications Scheduled Methadone HCl (Methadone HCl) 10 Mg/5 Ml Solution, 35 MG PO DAILY, (Reported) Allergies Coded Allergies: Penicillins (Verified Allergy, Unknown, 07/22/18) trazodone (Verified Allergy, Unknown, 07/22/18) Potato (Verified Adverse Reaction, Mild, vomiting, 06/11/19) Past Medical History Medical History Polysubstance abuse. Bipolar 2 disorder. PTSD Medication noncompliance Surgical History None Family History Significant Family History: No pertinent family hx Social History * Smoker: current smoker, cigarettes (1-1/2-2 packs per day) Alcohol: Denies Drugs: other (methadone) A-FIB/CHADSVASC A-FIB History Current/History of A-Fib/PAF?: No Current PO Anticoag Therapy: No Review of Systems Constitutional: Denies: Chills, Fever, Night Sweats Eyes: Denies: Pain, Vision change ENT: Denies: Head Aches, Ear Pain, Dysphagia Skin: Denies: Rash, Lesions, Breakdown Pulmonary: Denies: Dyspnea, Cough Cardiovascular: Denies: Chest Pain, Palpitations, Orthopnea, Paroxysmal Noc. Dyspnea, Lt Headedness Gastrointestinal: Denies: Nausea, Vomiting, Abdominal Pain, Diarrhea Genitourinary: Denies: Dysuria, Frequency, Incontinence, Retention Hematologic: Denies: Bruising, Bleeding Excessively Musculoskeletal: Denies: Neck Pain, Back Pain, Joint Pain, Muscle Pain, Spasms Neurological: Denies: Weakness, Numbness, Change in speech, Confusion Psych: Reports: Mood Normal; Denies: Depression, Memory Issues Physical Examination General Exam: Positive: Alert, Cooperative, No Acute Distress Eye Exam: Positive: PERRLA, Conjunctiva & lids normal, EOMI; Negative: Sclera icteric ENT Exam: Positive: Atraumatic, Mucous membr. moist/pink, Pharynx Normal Neck Exam: Positive: Supple; Negative: thyromegaly Chest Exam: Positive: Clear to auscultation, Normal air movement Heart Exam: Positive: Rate Normal, Regular Rhythm, Normal S1, Normal S2; Negative: Murmurs, Rubs Telemetry: Positive: No significant arrhythmia Abdomen Exam: Positive: Normal bowel sounds, Soft; Negative: Tenderness Extremity Exam: Positive: Normal pulses; Negative: Clubbing, Cyanosis, Edema Skin Exam: Positive: Nl turgor and temperature Neuro Exam: Positive: Normal Gait, Normal Speech, Strength at 5/5 X4 ext, Cranial Nerves 3-12 NL Psych Exam: Positive: Mood NL Vital Signs Vital Signs Date Time Temp Pulse Resp B/P (MAP) Pulse Ox O2 Delivery O2 Flow Rate FiO2 06/11/19 12:03 97.8 75 15 115/76 (89) 97 Room Air Laboratory Data Labs 24H Laboratory Tests 2 06/10/19 22:23: Nucleated Red Blood Cells % (auto) 0.0, Anion Gap 4L, Glomerular Filtration Rate > 60.0, Calcium Level 8.7, Total Bilirubin 0.3, Direct Bilirubin < 0.1, Aspartate Amino Transf (AST/SGOT) 20, Alanine Aminotransferase (ALT/SGPT) 30, Alkaline Phosphatase 48, Total Protein 7.4, Albumin 4.2, Albumin/Globulin Ratio 1.31, Thyroid Stimulating Hormone (TSH) 2.180, Salicylates Level 2.1L, Urine Opiates Screen NEGATIVE, Urine Methadone Screen POSITIVEH, Acetaminophen Level < 2.0L, Urine Barbiturates Screen NEGATIVE, Urine Phencyclidine Screen NEGATIVE, Urine Amphetamines Screen NEGATIVE, Urine Benzodiazepines Screen NEGATIVE, Urine Cocaine Metabolite Screen NEGATIVE, Urine Cannabinoids Screen NEGATIVE, Ethyl Alcohol Level < 0.003 CBC/BMP Laboratory Tests 06/10/19 22:23 Assessment/Plan #1. Bipolar 2 disorder, with worsening depression. Management per psychiatry Medicine will sign off at this time. Please reconsult as needed. Plan / VTE VTE Prophylaxis Ordered?: No BUNNY GONZALEZ PA-C Jun 11, 2019 15:59
[2019-06-11 18:19] VITALS: BP 100/52
[2019-06-11] MEDS: risperiDONE 0.5 MG TAB PO SCH (20:23)
[2019-06-11] MEDS: RAMELTEON 8 MG TAB (ROZEREM) PO SCH (20:23)
[2019-06-12 05:51] VITALS: BP 103/54
[2019-06-12] MEDS: METHADONE 10 MG TAB (S0109) PO SCH (09:03)
[2019-06-12] MEDS: NICOTINE 21MG/24HR 1 EA TRANSDERMAL TD SCH (09:04)
[2019-06-12] MEDS: FLUoxetine 10 MG CAP PO SCH (09:04)
[2019-06-12 16:12] VITALS: BP 122/56
[2019-06-12] MEDS: RAMELTEON 8 MG TAB (ROZEREM) PO SCH (20:18)
[2019-06-12] MEDS: risperiDONE 0.5 MG TAB PO SCH (20:18)
[2019-06-12] MEDS: OLANZapine ORAL DISINTEGRATING TAB 5MG PO PRN (20:19)
[2019-06-12] MEDS ORDERED: BISACODYL 5 MG TAB PO PRN (21:00)
[2019-06-13 06:19] VITALS: BP 109/53
--- NOTE | 2019-06-13 09:06 | MHIPN ---
DATE OF SERVICE: 06/12/2019 The patient today tells me that he was admitted because he was feeling depressed. When I asked him about the hallucinations to kill himself and his girlfriend that were noted in the admission record, he told me that the voices actually sounded like the girlfriend's brother telling him that he was going to kill him. The patient did not even mention his chronic drug abuse either. He asked if I would prescribe some medication to hep him with the anger episodes he is having. MENTAL STATUS EXAM: This patient is alert and oriented times three. Eye contact is fairly good. There is no formal thought disorder noted. His mood is depressed. Affect is flat. He is not suicidal or homicidal. He says that he is hearing voices but he does appear to be responding to internal stimuli. Concentration and memory is fair. Insight and judgment poor. DIAGNOSIS: Bipolar disorder, type II Amphetamine use disorder, severe Chronic opioid use disorder, severe, on methadone TREATMENT PLAN: We will continue to monitor the patient for the patient for ongoing hallucinations. We will continue to monitor the patient for continued resolution of suicidal ideations, and we will titrate his medications as indicated. I have added Zyprexa 5 mg prn q 4h for his anger episodes. MTDD
[2019-06-13] MEDS: METHADONE 10 MG TAB (S0109) PO SCH (09:11)
[2019-06-13] MEDS: FLUoxetine 10 MG CAP PO SCH (09:12)
[2019-06-13] MEDS: NICOTINE 21MG/24HR 1 EA TRANSDERMAL TD SCH (09:12)
[2019-06-13 16:20] VITALS: BP 98/59
[2019-06-13] MEDS: RAMELTEON 8 MG TAB (ROZEREM) PO SCH (21:02)
[2019-06-13] MEDS: risperiDONE 0.5 MG TAB PO SCH (21:02)
[2019-06-14 06:17] VITALS: BP 100/58
[2019-06-14] MEDS: FLUoxetine 10 MG CAP PO SCH (08:21)
[2019-06-14] MEDS: METHADONE 10 MG TAB (S0109) PO SCH (08:21)
[2019-06-14] MEDS ORDERED: NICOTINE POLACRILEX 2 MG GUM PO PRN (08:30)
[2019-06-14] MEDS: OLANZapine ORAL DISINTEGRATING TAB 5MG PO PRN (10:17)
[2019-06-14] MEDS ORDERED: FLUO10CA15 PO (10:54)
[2019-06-14] MEDS ORDERED: RISP0.5T21 PO (10:54)
[2019-06-14] MEDS ORDERED: NICO2GUM PO (10:54)
--- NOTE | 2019-06-14 10:55 | MHDSPDOC ---
[facility] Discharge Summary Discharge Summary DATE OF ADMISSION: Jun 11, 2019 at 11:33 DATE OF DISCHARGE: 06/14/19 Discharge Dl O[place]iedo MRN: N/A Date of : N/A Date of Service: 06/14/2019 Diagnoses Unspecified bipolar disorder Likely substance induced Opioid use disorder, severe Hallucinogen use disorder, severe History of Present Illness The patient, a 24-year-old man with a notable history of substance use and reported depression presents heavily intoxicated on Inez. The patient reports using Inez nearly every day after he had become depressed. The patient during the evaluation is mildly intoxicated with Inez, and a mildly hypokinetic state, unable to describe much of his symptoms in any great length, other than he wanted to be resumed on his previous medications of risperidone and Prozac. He reported that he was taken off his psychiatric meds as he was started on methadone. Otherwise, information was taken from the chart and extracted as appropriate. Consultants Involved Hospitalist/PCP screening Treatment and Progress On The Unit The patient was admitted to the inpatient unit. He was initially somewhat intoxicated on Inez, he was restarted at his request on Prozac and risperidone 10 mg/0.5 mg nightly as he was on this combination prior and reported that it was helpful for his mood. The patient reported that he had done well on this. Initially, he was difficult to interview as he was intoxicated, however, he resolved well and generally returned to a normal mental status quickly over the weekend without any significant adjustments on his medications. He did attend some groups, but had no major behavioral problems on the unit. Discharge Assessment 24-year-old man with a history of significant substance use presents in a elated state after using Inez, he is started on his previous medications that he had done well on, he returns to a normal mental status quickly without much intervention suggesting primarily substance abuse on top of potential mental illness. The patient at the time of discharge did not meet criteria for involuntary admission/extension due to having a normal mental status exam, fair insight into the situation, They are engaged in the discharge process, as well as being friendly and amenable in behavioral control and havent been engaging in any observed concerning behavior or ideation recently. They decline voluntary extension/admission at this time and must be discharged in good lyla, as Im unable to make a case for holding the patient against their will. They may have historical risk factors of admissions and other interactions with psychiatry however, those are not modifiable from a clinical perspective. The patient will need to be discharged in good lyla. Mental Status Examination General: Well dressed with good hygiene Speech: Spontaneous and fluid Thought processes: Linear and logical MSK: Smooth and coordinated gait, no signs of tremors or involuntary orofacial movements Thought content: Future orientated Abstract reasoning, and computation: Intact Description of associations: Intact Description of abnormal or psychotic thoughts: Denies any suicidal or homicidal ideation. Denies any auditory or visual hallucinations. Does not appear to be responding to internal stimuli. Does not appear to be endorsing any bizarre or paranoid ideation. Judgment: fair Insight: fair Orientation: Alert and orientated 3 Cognition: Grossly normal Recent and remote memory: Intact Attention span and concentration: Intact Fund of knowledge: Adequate Mood: "okay" Affect: Euthymic with a full range Follow Up The social work team worked during the predischarge meeting in order to evaluate for further issues of lethality address them fully before discharge. They worked on safety planning with the patient's family members in order to ensure that the patient will have a safe and effective discharge. Time Spent The amount of time spent in the coordination of care for this patient was approximately 45 minutes. Friday Vital Signs/I&Os Vital Signs Date Time Temp Pulse Resp B/P (MAP) Pulse Ox O2 Delivery O2 Flow Rate FiO2 06/14/19 06:17 98.7 69 14 100/58 (72) 06/13/19 10:30 Room Air 06/11/19 18:19 98 Medications Scheduled Fluoxetine Hcl (Fluoxetine HCl) 10 Mg Capsule, 10 MG PO DAILY for mood for 7 Days, #7 Methadone HCl (Methadone HCl) 10 Mg/5 Ml Solution, 35 MG PO DAILY, (Reported) Risperidone (Risperdal) 0.5 Mg Tablet, 0.5 MG PO QHS for mood for 7 Days, #7 Scheduled PRN Nicotine Polacrilex (Nicotine Gum) 2 Mg Gum, 2 MG PO Q2HP PRN for NICOTINE WITHDRAWAL for 30 Days, #30 Allergies Coded Allergies: Penicillins (Verified Allergy, Unknown, 07/22/18) trazodone (Verified Allergy, Unknown, 07/22/18) Potato (Verified Adverse Reaction, Mild, vomiting, 06/11/19) VALENTINA CORREA DO Jun 14, 2019 10:55
--- NOTE | 2019-06-14 19:00 | MHIPN ---
DATE: 06/13/2019 The patient today states that "I'm doing good." He feels that the Zyprexa is really helping his anger episodes. He says he is no longer having any hallucinations and he is not suicidal. MENTAL STATUS EXAMINATION: This patient is alert and oriented times three. Eye contact is fairly good. Psychomotor activity is normal. There is no formal thought disorder noted. He says his mood is good. Affect constricted, but appropriate to mood. He is not psychotic, suicidal or homicidal. Concentration is fair. Memory intact. Insight and judgment is fair. DIAGNOSES: 1. Unspecified bipolar disorder. 2. Opioid use disorder. 3. Hallucinogen use disorder. TREATMENT PLAN: At this point, we will continue to monitor the patient for continued resolution of any suicidal thoughts and resolution of auditory hallucinations and we will continue the patient's current medication.
== END 2019-06-14 13:27 | disposition home or self-care (01) | DRG 753 ==
LOC: M ED 21:20 → M ED INP 06-11 11:33 → M PSY 06-11 13:30
PROVIDERS: ADMIT Psychiatry & Neurology Addiction Medicine; ATTEND Psychiatry & Neurology Addiction Medicine
DX: F31.9 Bipolar disorder, unspecified (principal); F19.94 Other psychoactive substance use, unspecified with psychoactive substance-induced mood disorder; F10.10 Alcohol abuse, uncomplicated; F16.90 Hallucinogen use, unspecified, uncomplicated; Z79.899 Other long term (current) drug therapy; Z88.0 Allergy status to penicillin; Z88.8 Allergy status to other drugs, medicaments and biological substances; Z91.018 Allergy to other foods; F17.210 Nicotine dependence, cigarettes, uncomplicated

== ENCOUNTER → 2019-06-17 | Outpatient (REF) | payer MEDICAID ==
[~2019-06-17] MED LIST changes: +METH10SO PO; +NICO2GUM PO; +RISP0.5T21 PO
[2019-06-18 09:35] LABS: HEPATITIS B SURFACE ANTIBODY NEGATIVE (POSITIVE); HIV 1&2 SCREEN CENTAUR NEGATIVE (NEGATIVE)
[2019-06-23 14:07] LABS: HEPATITIS C QUANTITATION 825830 IU/mL (.)
== END ==
LOC: M LAB REF 18:51
PROVIDERS: ATTEND Family Medicine
DX: B18.2 Chronic viral hepatitis C (principal)

== ENCOUNTER 2019-07-05 12:03 | Emergency (ER) | payer MEDICAID, OTHER ==
[~2019-07-05] VITALS: Ht 177.8 cm; Wt 63.6 kg
--- NOTE | 2019-07-05 13:26 | REP ---
Right upper extremity duplex Doppler venous ultrasound. Real time compression and duplex Doppler evaluation of the right upper extremity deep venous system is performed. The right subclavian, jugular, axillary, brachial, basilic and cephalic veins are fully compressible where accessible with transducer pressure, and demonstrate no intraluminal thrombus and normal venous waveforms. There is no evidence of deep venous thrombosis. Impression: No evidence of deep venous thrombosis of the right upper extremity deep vein system. Electronically Signed by Kory Tipton MD 07/05/2019 01:18 P
[2019-07-05] MEDS ORDERED: CLINDAMYCIN 900 MG in IV 1 EA IV ONE (13:30)
--- NOTE | 2019-07-05 13:46 | REP ---
ULTRASOUND RIGHT ANTECUBITAL SOFT TISSUES: Real-time sonographic evaluation of right antecubital soft tissues is performed. There is scattered soft tissue edema. There is possibly a small pocket of complex fluid in the soft tissues measuring 12 x 3 x 11 mm. IMPRESSION: Possible small pocket of complex fluid in the antecubital soft tissues measuring 12 x 3 x 11 mm. Electronically Signed by Kory Tipton MD 07/05/2019 03:20 P
[2019-07-05 14:03] LABS: BASO % 0.5 % (0.0-1.0); EOS # 0.1 10^3/uL (0.0-0.5); EOS % 1.5 % (0.0-3.0); HEMOGLOBIN 14.8 g/dl (13.5-17.5); LYMPH # 1.7 10^3/uL (1.5-5.0); LYMPH % 20.3 % (24.0-44.0); MEAN CORPUSCULAR HEMOGLOBIN 30.5 pg (27.0-33.0); MEAN CORPUSCULAR HGB CONC 32.9 g/dl (32.0-36.5); MEAN CORPUSCULAR VOLUME 92.8 fl (80.0-96.0); MONO # 0.9 10^3/uL (0.0-0.8); MONO % 11.4 % (0.0-5.0); NEUTROPHILS # 5.4 10^3/uL (1.5-8.5); NEUTROPHILS % 65.9 % (36.0-66.0); PLATELET COUNT, AUTOMATED 316 10^3/uL (150-450); RED BLOOD COUNT 4.85 10^6/uL (4.30-6.10); WHITE BLOOD COUNT 8.2 10^3/uL (4.0-10.0)
[2019-07-05 14:31] LABS: BLOOD UREA NITROGEN 20 MG/DL (7-18); CALCIUM LEVEL 8.7 MG/DL (8.5-10.1); CARBON DIOXIDE LEVEL 25 MEQ/L (21-32); CHLORIDE LEVEL 111 MEQ/L (98-107); CREATININE FOR GFR 0.66 MG/DL (0.70-1.30); GLOMERULAR FILTRATION RATE > 60.0 (>60); GLUCOSE, FASTING 91 MG/DL (70-100); POTASSIUM SERUM 4.8 MEQ/L (3.5-5.1); SODIUM LEVEL 139 MEQ/L (136-145)
[2019-07-05] MEDS ORDERED: ACETAMINOPHEN TAB 650MG DOSE (2X325MG) PO ONE (14:45)
[2019-07-05] MEDS ORDERED: CLEO300C2 PO (15:37)
[2019-07-05 15:53] VITALS: BP 112/59
--- NOTE | 2019-07-06 16:19 | ER ---
DATE OF CONSULTATION: 07/05/2019 LOCATION: Emergency Department. REASON FOR CONSULTATION: Possible infection right antecubital fossa. HISTORY: The patient is a 24-year-old man who presented to the emergency department just after noon on the 04 of July complaining of pain in the right antecubital fossa. He has a history of intravenous (IV) drug abuse, though he reports that he had been sober for some 6 months. This past weekend he had been injecting some methamphetamine and MDMA. He reports that his last injection was on Friday, the . He noted that he had done an injection in the right antecubital fossa when he was already high and has noticed pain in the antecubital fossa since. This became quite severe, and he reports that he cannot straighten his elbow out completely on the right. He presented to the emergency room (ER) for evaluation. He was seen by Dr. Tipton who felt that there was some redness of the antecubital fossa with tenderness. She obtained an ultrasound of the area that was reported as showing a possible small pocket of fluid in the antecubital fossa soft tissues, measuring in 12 mm maximally. I was consulted to see if incision and drainage would be warranted. ALLERGIES: Patient reports allergies to PENICILLINS, TRAZODONE, and POTATOES. CURRENT MEDICATIONS: None. SURGICAL HISTORY: He has a history of a prior incision and drainage (I and D) of a buttock abscess and required some sort of penile repair for injury. His medical issues include a reported history of asthma and poor dentition. He reports a history of headaches, as well as bipolar disorder, as well some anger issues and a report of post-traumatic stress disorder (PTSD). He apparently is hepatitis C positive. He has a history of IV drug abuse. FAMILY HISTORY: Noncontributory. SOCIAL HISTORY: Significant only for his drug abuse history. REVIEW OF SYSTEMS: Shows no history of heart disease or endocrine problems. PHYSICAL EXAMINATION: Shows a thin young man lying quietly on the hospital stretcher. Exam is limited to his right upper extremity. He has a strong radial pulse. There is some minimal erythema in the medial aspect of the antecubital fossa. He has a number of small puncture wounds consistent with injection sites following a vein from the antecubital fossa up onto his distal upper arm, approximately 5-7 cm. There is another small needle puncture site medial to this vein in the antecubital fossa. Toward the medial aspect of the antecubital fossa medial to this lone puncture wound and slightly more proximal, he has an area of tenderness over an area of about 2 cm. There is no fluctuance. He initially said he could not straighten his arm, but with gentle examination, his arm extends to approximately 170 degrees. He flexes it without any limitation. There is no fluctuance. LABORATORY STUDIES: Show a white count of 8, hemoglobin 15, hematocrit 45, and a platelet count of 316,000. Differential count showed neutrophils 66%, lymphs 20%, and monocytes 115. Chemistry profile showed nothing of significance to his current problem. I reviewed his ultrasound and both images and report. He has a small lenticular area maximally 11 mm to 12 mm in size. This is quite discrete. IMPRESSION: Patient has been injecting in his right antecubital fossa. He admits that he may have missed the intended vein target with his last injection. It may well be that this area of inflammation is secondary to deposition of the injected drug into the antecubital fossa. There does not appear to be an abscess that could be readily drained at this time. RECOMMENDATIONS: I discussed the patient and his situation with Dr. Tipton of the emergency department. I believe that antibiotics would be appropriate, and she was thinking clindamycin because of his penicillin allergy and this seems appropriate. I advised her that I do not believe it would be necessary to consider an incision and drainage at this point. Certainly if the area worsens, this could be considered. He can return to the emergency department as needed for a reassessment if his symptoms worsen.
== END 2019-07-05 15:57 | disposition home or self-care (01) ==
LOC: M ED 12:03
DX: M79.89 Other specified soft tissue disorders (principal); F19.10 Other psychoactive substance abuse, uncomplicated; Z86.19 Personal history of other infectious and parasitic diseases; F41.9 Anxiety disorder, unspecified; F32.9 Major depressive disorder, single episode, unspecified; F17.200 Nicotine dependence, unspecified, uncomplicated; Z88.0 Allergy status to penicillin; Z88.8 Allergy status to other drugs, medicaments and biological substances; Z91.018 Allergy to other foods

== ENCOUNTER 2019-07-13 11:35 | Inpatient (IN) | payer OTHER ==
[~2019-07-13] VITALS: Ht 177.8 cm; Wt 60.7 kg
[~2019-07-13 11:35] MED LIST changes: +CLEO300C2 PO
[2019-07-13] MEDS ORDERED: ACETAMINOPHEN 325 MG TAB PO ONE (12:00)
[2019-07-13] MEDS ORDERED: NS 1,000 ML IV ONE (12:00)
[2019-07-13 12:48] LABS: BASO # 0.1 10^3/uL (0.0-0.2); BASO % 0.4 % (0.0-1.0); EOS # 0.1 10^3/uL (0.0-0.5); EOS % 0.6 % (0.0-3.0); HEMATOCRIT 37.8 % (42.0-52.0); HEMOGLOBIN 12.4 g/dl (13.5-17.5); LYMPH # 1.3 10^3/uL (1.5-5.0); LYMPH % 9.4 % (24.0-44.0); MEAN CORPUSCULAR HEMOGLOBIN 30.8 pg (27.0-33.0); MEAN CORPUSCULAR HGB CONC 32.8 g/dl (32.0-36.5); MEAN CORPUSCULAR VOLUME 93.8 fl (80.0-96.0); MONO # 1.2 10^3/uL (0.0-0.8); NEUTROPHILS % 80.2 % (36.0-66.0); PLATELET COUNT, AUTOMATED 247 10^3/uL (150-450); RED BLOOD COUNT 4.03 10^6/uL (4.30-6.10); WHITE BLOOD COUNT 13.7 10^3/uL (4.0-10.0)
[2019-07-13] MEDS ORDERED: CLINDAMYCIN 600 MG in IV 1 EA IV ONE (13:30)
[2019-07-13 13:58] LABS: BLOOD UREA NITROGEN 15 MG/DL (7-18); C REACTIVE PROTEIN QUANTITATIV 8.27 MG/DL (0.00-0.30); CALCIUM LEVEL 8.4 MG/DL (8.5-10.1); CARBON DIOXIDE LEVEL 26 MEQ/L (21-32); CHLORIDE LEVEL 111 MEQ/L (98-107); CREATININE FOR GFR 0.63 MG/DL (0.70-1.30); GLOMERULAR FILTRATION RATE > 60.0 (>60); GLUCOSE, FASTING 108 MG/DL (70-100); POTASSIUM SERUM 3.6 MEQ/L (3.5-5.1); SODIUM LEVEL 139 MEQ/L (136-145)
[2019-07-13] MEDS ORDERED: CLIN300C5 PO (14:00)
--- NOTE | 2019-07-13 14:00 | REP ---
REASON FOR EXAM: Followup small complex fluid collection seen in the antecubital fossa region of the right forearm which measured 1.2 x 0.3 x 1.1 cm on the prior exam of 07/05/2019 which was reviewed. Multiple ultrasonographic images were obtained perceivably in the same area as the prior exam. Today's exam shows a complex mixed echo seemingly cystic and solid area which measures 6.6 x 4.4 x 5.8 cm. The color Doppler images show evidence of an artery passing through this structure. IMPRESSION: There has been a significant change in the appearance of the antecubital fossa region of the right forearm compared to the prior exam as described above. Whether this represents an abscess or other abnormal structure cannot be determined by this exam and needs to be correlated clinically with appropriate followup. Electronically Signed by Turner Heredia DO 07/13/2019 03:05 P
--- NOTE | 2019-07-13 14:57 | HPEPDOC ---
General Date of Admission Jul 13, 2019 at 13:53 Date of Service: Jul 13, 2019 Chief Complaint The patient is a 24-year-old male admitted with a reason for visit of Abscess Of Upper Arm And Forearm, Right. History of Present Illness 24 year old male with h/o hepatitis C , depression, PTSD, IV drug use last use as per patient 1 week ago when he had developed a small area of redness and swelling about 1.1 x 1.2 cm after shooting for which he had come ot the ED. He was evaluated by Surgery and felt there was not enought collection to be drained. He was sent home with clindamycin. Patient claims that he has been taking the antibiotics 3 times a day however his arm continued to swell, become more red and spread from the right antecubital fossa up to the wrist and up the arm also. Today he started having fever and chills. Also says he has been unable to eat for 3 days . He alos complains of loose bowel movements 2 to 3 times a day. Patient had repeat US of the fore arm and Today's exam shows a complex mixed echo seemingly cystic and solid area which measures 6.6 x 4.4 x 5.8 cm. The color Doppler images show evidence of an artery passing through this structure. Mervin was admitted for abscess and cellulitis of right arm and forearm after IV drug use not responding to oral antibiotics. Home Medications Scheduled Clindamycin HCl (Clindamycin HCl) 300 Mg Capsule, 300 MG PO TID, (Reported) FOR 10 DAYS 07/05/19 Allergies Coded Allergies: Penicillins (Verified Allergy, Unknown, 07/22/18) trazodone (Verified Allergy, Unknown, 07/22/18) Potato (Verified Adverse Reaction, Mild, vomiting, 06/11/19) Past Medical History Medical History Hepatitis C IV drug user Polysubstance abuse. Bipolar 2 disorder. PTSD Family History Significant Family History: No pertinent family hx (discussed with pateint) Social History * Smoker: current smoker Alcohol: Denies Drugs: IV drug use A-FIB/CHADSVASC A-FIB History Current/History of A-Fib/PAF?: No Review of Systems Constitutional: Reports: Chills, Fever, Malaise, Weakness, Fatigue Eyes: Denies: Pain, Vision change ENT: Reports: Head Aches Skin: Reports: Other (redness, swelling of the right arm and forearm) Pulmonary: Denies: Dyspnea, Cough Cardiovascular: Denies: Chest Pain, Palpitations, Orthopnea, Paroxysmal Noc. Dyspnea, Lt Headedness Gastrointestinal: Reports: Diarrhea Genitourinary: Denies: Dysuria, Frequency, Incontinence, Retention Hematologic: Denies: Bruising, Bleeding Excessively Musculoskeletal: Reports: Arm Pain, Muscle Pain, Other Symptoms (unable to straighten the right forearm.); Denies: Neck Pain, Back Pain, Spasms Neurological: Denies: Weakness, Numbness, Change in speech, Confusion Physical Examination General Exam: Positive: Alert, Cooperative, No Acute Distress Eye Exam: Positive: PERRLA, Conjunctiva & lids normal, EOMI; Negative: Sclera icteric ENT Exam: Positive: Atraumatic, Mucous membr. moist/pink, Pharynx Normal Neck Exam: Positive: Supple; Negative: JVD, thyromegaly Chest Exam: Positive: Clear to auscultation, Normal air movement Heart Exam: Positive: Tachycardic, Regular Rhythm, Normal S1, Normal S2; Negative: Murmurs, Rubs Abdomen Exam: Positive: Normal bowel sounds, Soft; Negative: Tenderness, Hepatospenomegaly Extremity Exam: Positive: Normal pulses, Tenderness (right forearm), Swelling (right forearm), Other; Negative: Clubbing, Cyanosis, Edema Neuro Exam: Positive: Normal Speech, Strength at 5/5 X4 ext Psych Exam: Positive: Mental status NL, Mood NL, Oriented x 3 Vital Signs Vital Signs Date Time Temp Pulse Resp B/P (MAP) Pulse Ox O2 Delivery O2 Flow Rate FiO2 07/13/19 13:26 100.2 07/13/19 11:57 07/13/19 11:36 97 17 100 Room Air Laboratory Data Labs 24H Laboratory Tests 2 07/13/19 12:29: Immature Granulocyte % (Auto) 0.4, Neutrophils (%) (Auto) 80.2H, Lymphocytes (%) (Auto) 9.4L, Monocytes (%) (Auto) 9.0H, Eosinophils (%) (Auto) 0.6, Basophils (%) (Auto) 0.4, Neutrophils # (Auto) 11.0H, Lymphocytes # (Auto) 1.3L, Monocytes # (Auto) 1.2H, Eosinophils # (Auto) 0.1, Basophils # (Auto) 0.1, Nucleated Red Blood Cells % (auto) 0.0, Lactic Acid Level 2.6*H 07/13/19 13:18: Anion Gap 2L, Glomerular Filtration Rate > 60.0, Calcium Level 8.4L, C-Reactive Protein, Quantitative 8.27H CBC/BMP Laboratory Tests 07/13/19 12:29 07/13/19 13:18 Microbiology Microbiology 07/13/19 Blood Culture, Received Pending 07/13/19 Blood Culture, Received Pending Assessment/Plan 24 year old male with h/o Hepatitis C, depression, PTSD, IV drug use last use as per patient 1 week ago when he had developed a small area of redness and swelling about 1.1 x 1.2 cm after shooting for which he had come ot the ED. He was evaluated by Surgery and felt there was not enought collection to be drained. He was sent home with clindamycin. Patient claims that he has been taking the antibiotics 3 times a day however his arm continued to swell, become more red and spread from the right antecubital fossa up to the wrist and up the arm also. Today he started having fever and chills. Also says he has been unable to eat for 3 days . He alos complains of loose bowel movements 2 to 3 times a day. Patient had repeat US of the fore arm and Today's exam shows a complex mixed echo seemingly cystic and solid area which measures 6.6 x 4.4 x 5.8 cm. The color Doppler images show evidence of an artery passing through this structure. Mervin was admitted for abscess and cellulitis of right arm and forearm after IV drug use not responding to oral antibiotics. Right fore arm abscess and cellulitis s/p IV drug use and possible extravasation. Vanco and ceftriaxone EMR shows that he is allergic to Penicillin. Patient says he had some problem as a child as he was told by his father. Surgical consult NPO for now as may need I& D. If no procedure today then can have dinner . Morphine for pain if needed. Sepsis due to the above will continue with ceftiaxone , vancomycin and IVF Lactic acidosis due to infection continue IVF. IV drug user No signs of withdrawal at present Patient claims he gets Methadone from [employer] will have to confirm this before prescribing. Hepatitis C No issues at present. Plan / VTE VTE Prophylaxis Ordered?: Yes TJ BISHOP MD Jul 13, 2019 14:57
[2019-07-13] MEDS ORDERED: VANCOMYCIN HCL 750 MG, VIAL MATE ADAPTER 1 EACH in D5W 250 ML IV ONE ×2 (15:00→16:00)
[2019-07-13] MEDS: cefTRIAXone SOD 2 GM in D5W MINI-BAG PLUS 50 ML IV SCH (15:03)
[2019-07-13 15:06] VITALS: BP 114/64
--- NOTE | 2019-07-13 15:23 | PHACANCOPD ---
PHARMACY VANCOMYCIN DOSING Pt Demographics Demographics Patient Age:24 , Weight:62.800 , Gender: male Adjusted Body Weight Date: 07/13/19, Adjusted Body Weight: Kg Events Past 24 Hours Events Past 24 Hours: YES: Fever, Elevation in WBC Vancomycin Vancomycin Target Ranges: 10-20 mcg/ml Vancomycin Load Y/N: Yes Load Dose Date Time Vancomycin Load Dose: 1250 MG Date: 07/13/19 Time: 1600 Vancomycin Dose Date: 07/13/19. Current Vancomycin Dose: [1 GM IV Q8H] Intermittent Dosing?: No Labs Micro Microbiology 07/13/19 Blood Culture, Received Pending 07/13/19 Blood Culture, Received Pending Creatinine Clearance Date:07/13/19. Creatinine Clearance: . Assessment and Plan Maintaining Current Dose?: Yes Reason for dose change: No Dose Change Pharmacist Note Pharmacist Note Date: 07/13/19. Pharmacist note: Pharmacy consulted for Vancomycin dosing for treatment of cellulitis with a goal trough of 10-20 mcg/ml. Patient has no history of MRSA or Vanco here at [facility]. Patient has failed outpatient Clindamycin and is currently also being treated with Ceftriaxone 2 gm q24h. Of note, patient is febrile and has an elevated white count and lactic acid. We'll load him with 1250 mg and follow with 1 gm IV q8h. Pharmacy will continue to monitor and make adjustments as needed. [facility] Jul 13, 2019 15:23
[2019-07-13] MEDS: MORPHINE 4 MG/ML 1ML VIAL/SYRINGE (J2270) IV PRN ×2 (15:32→19:37)
[2019-07-13] MEDS ORDERED: VANCOMYCIN HCL 500 MG in D5W MINI-BAG PLUS 100 ML IV ONE (17:00)
[2019-07-13] MEDS: D5W/0.9% SODIUM CHLORIDE 1,000 ML IV SCH ×2 (18:19→22:20)
[2019-07-13] MEDS ORDERED: LIDOCAINE W/EPINEPHRINE 1% 20ML VIAL As Ordered ONE (20:17)
[2019-07-13] MEDS ORDERED: fentaNYL 100 MCG/2 ML INJECTION (J3010) As Ordered ONE ×2 (20:54→21:27)
[2019-07-13] MEDS ORDERED: MIDAZOLAM INJ 2 MG/2 ML VIAL (J2250) As Ordered ONE (20:54)
[2019-07-13] MEDS ORDERED: LIDOCAINE 2% INJ 100 MG/5 ML SDV (FOR ANES.) As Ordered ONE (20:55)
[2019-07-13] MEDS ORDERED: propofoL 200 MG/20 ML VIAL As Ordered ONE (20:55)
[2019-07-13] MEDS ORDERED: ONDANSETRON 4MG/2ML VIAL (J2405) As Ordered ONE (20:55)
--- NOTE | 2019-07-13 21:12 | CR ---
DATE OF CONSULTATION: 07/13/2019 CHIEF COMPLAINT: Right forearm abscess. HISTORY OF PRESENT ILLNESS: This patient is a 24-year-old male with a history of IV drug abuse, hepatitis C, presented to the hospital a week ago with a small area of redness in the right arm after shooting up. He was sent home with clindamycin. He presents again today with increased swelling pain in the right forearm. No drainage. He is having difficulty moving the arm at the elbow and at the wrist, as well as some decreased sensation in the hand. He had a repeat ultrasound in the emergency room (ER) showing a 6 x 4 x 5 cm likely abscess in the right proximal forearm; therefore, I was called for evaluation. He did claim that was the last time that he used drugs. He has not used any since. He has never had any broken needles in the arm, never had a prior I D of that arm. PAST MEDICAL HISTORY: 1. Hepatitis C. 2. IV drug abuse. 3. Polysubstance abuse. 4. Bipolar. 5. Posttraumatic stress disorder (PTSD). PAST SURGICAL HISTORY: Negative. ALLERGIES: PENICILLIN, TRAZODONE, POTATOES. FAMILY HISTORY: Noncontributory. SOCIAL HISTORY: Smokes a pack a day. Denies any alcohol use. History of IV drug abuse. REVIEW OF SYSTEMS: Pertinent positives and negatives as stated in the history of present illness. PHYSICAL EXAMINATION: General: Alert and oriented x3 in no acute stress. Vitals: Temperature 100.2, pulse 92, respirations 16, blood pressure 114/64, pulse oximetry 100% on room air. HEENT: Pupils equally round react to light and accommodation. Heart: S1-S2 regular rate and rhythm. Lungs: Clear to auscultation bilaterally. Abdomen: Soft, nontender, nondistended. Skin: The right proximal forearm is extremely swollen, extensive erythema from the elbow to the mid forearm. There is fluctuance over the medial proximal aspect of the forearm. No signs of drainage anywhere. LABORATORY: White count 13.7, hemoglobin 12.4, platelets 247, potassium 3.6, creatinine 0.63, lactic acid followup 0.9. IMAGING STUDIES: There is a 6.6 x 4.4 x 5.8 cm cystic and solid area in the right proximal forearm. ASSESSMENT/PLAN: The patient is a 24-year-old male with a history of IV drug abuse, hepatitis C with an abscess in the right proximal forearm. Recommendation is to proceed with incision and drainage (I D) in the operating room. Risks and benefits of procedure unlimited, but could include bleeding, infection, damage to surrounding structures, need for further surgery, discussed in detail with the patient, informed consent was obtained and procedure was planned. Postoperatively, will keep him on IV antibiotics and return him to the floor for dressing changes. Once he is stable medically and able to take care of his own dressing changes, he will be able to be discharged home.
[2019-07-13] MEDS ORDERED: ONDANSETRON 4MG/2ML VIAL (J2405) IV PRN (21:15)
[2019-07-13] MEDS ORDERED: LR 1,000 ML IV SCH (21:15)
[2019-07-13] MEDS: fentaNYL 100 MCG/2 ML INJECTION (J3010) IV PRN ×3 (21:29→21:54)
[2019-07-13] MEDS ORDERED: PERCOCET 5MG/325MG TAB As Ordered ONE (21:58)
[2019-07-13 22:10] VITALS: BP 121/76
[2019-07-13] MEDS ORDERED: PERCOCET 5MG/325MG TAB PO PRN (22:15)
[2019-07-13 22:45] VITALS: BP 123/62
[2019-07-13 23:15] VITALS: BP 106/55
[2019-07-14] VITALS (9 sets, daily range): BP systolic 112–132; BP diastolic 59–70
[2019-07-14] MEDS: VANCOMYCIN HCL 1,000 MG, VIAL MATE ADAPTER 1 EACH in D5W 250 ML IV SCH ×4 (00:02→22:05)
--- NOTE | 2019-07-14 00:05 | RO ---
DATE OF PROCEDURE: 07/13/2019 PREOPERATIVE DIAGNOSIS: Right forearm abscess. POSTOPERATIVE DIAGNOSIS: Right forearm abscess. PROCEDURE: Incision and drainage (I and D) right forearm abscess. SURGEON: Dr. Kory Pisano ENDOSCOPY SUPPORT SPECIALIST: None. ANESTHESIA: IV sedation with 10 mL of 1% with epi local. COMPLICATIONS: None. ESTIMATED BLOOD LOSS: 5 mL. INDICATIONS FOR PROCEDURE: The patient is a 24-year-old male with a history of intravenous (IV) drug abuse who developed a right forearm abscess. Recommendation was to proceed with incision and drainage in the operating room. Risks and benefits of the procedure not limited to, but including, bleeding, infection, damage to surrounding structures, need for further surgery discussed in detail with the patient. Informed consent was obtained and procedure was planned. DESCRIPTION OF PROCEDURE: The patient was brought back to operating room three. After sufficient sedation on the stretcher, the right forearm was sterilely prepped and draped with Betadine. Next, a time-out was done to confirm proper patient, proper procedure. Following that, local was injected in skin and subcutaneous tissue over the most fluctuant portion of the abscess. 15 blade scalpel was then used to make a 4 cm incision. Once that was completed, suction was used to remove all of the pus from the pocket. Once that was completed, the cavity was gently probed with a Reema clamp just to make sure there were no large loculations. Once that was completed, the cavity was irrigated with normal saline and then packed with half-inch iodoform gauze. Once the packing was complete, the area around it was washed and dried, 4x4s, ABD and a Tegaderm were placed, thus ending procedure.
[2019-07-14] MEDS: MORPHINE 4 MG/ML 1ML VIAL/SYRINGE (J2270) IV PRN ×3 (01:52→19:26)
[2019-07-14] MEDS ORDERED: ACETAMINOPHEN TAB 650MG DOSE (2X325MG) PO PRN (04:15)
[2019-07-14 06:02] LABS: BASO # 0.1 10^3/uL (0.0-0.2); BASO % 0.4 % (0.0-1.0); EOS # 0.2 10^3/uL (0.0-0.5); EOS % 1.6 % (0.0-3.0); HEMATOCRIT 36.4 % (42.0-52.0); HEMOGLOBIN 12.2 g/dl (13.5-17.5); LYMPH % 14.3 % (24.0-44.0); MEAN CORPUSCULAR HEMOGLOBIN 31.1 pg (27.0-33.0); MEAN CORPUSCULAR HGB CONC 33.5 g/dl (32.0-36.5); MEAN CORPUSCULAR VOLUME 92.9 fl (80.0-96.0); MONO # 1.4 10^3/uL (0.0-0.8); MONO % 10.3 % (0.0-5.0); NEUTROPHILS % 72.9 % (36.0-66.0); PLATELET COUNT, AUTOMATED 257 10^3/uL (150-450); RED BLOOD COUNT 3.92 10^6/uL (4.30-6.10); WHITE BLOOD COUNT 13.7 10^3/uL (4.0-10.0)
[2019-07-14 06:19] LABS: BLOOD UREA NITROGEN 10 MG/DL (7-18); CALCIUM LEVEL 7.8 MG/DL (8.5-10.1); CARBON DIOXIDE LEVEL 22 MEQ/L (21-32); CHLORIDE LEVEL 111 MEQ/L (98-107); CREATININE FOR GFR 0.67 MG/DL (0.70-1.30); GLOMERULAR FILTRATION RATE > 60.0 (>60); GLUCOSE, FASTING 126 MG/DL (70-100); POTASSIUM SERUM 3.5 MEQ/L (3.5-5.1); SODIUM LEVEL 140 MEQ/L (136-145)
--- NOTE | 2019-07-14 10:29 | ECGEPIP ---
[facility] - ED Test Date: 2019-07-13 Pat Name: STACIA OZUNA Department: Room: [place] [address] Gender: Male Long Term: HARRY : 1995 Requested By: ARLETTE LOPEZ PA-C. Order Number: [id number] Reading MD: Iraj Delgado Measurements Intervals Beyer Rate: 91 P: 70 ME: 170 QRS: 87 QRSD: 85 T: 70 QT: 338 QTc: 417 Interpretive Statements SINUS RHYTHM NSTTW ABNORMALITIES SIMILAR TO 06/11/19 Electronically Signed on 07-14-2019 10:28:46 EDT by Iraj Delgado
--- NOTE | 2019-07-14 12:56 | IPNPDOC ---
Subjective Date Seen The patient was seen on 07/14/19. Subjective Chief Complaint/HPI continues to have fever this am. Had I & D last night . Pain in the arm and forearm is much less than before Objective Physical Examination General Exam: Positive: Alert, Cooperative, No Acute Distress Eye Exam: Positive: PERRLA, Conjunctiva & lids normal, EOMI; Negative: Sclera icteric ENT Exam: Positive: Atraumatic, Mucous membr. moist/pink, Pharynx Normal Neck Exam: Positive: Supple; Negative: JVD, thyromegaly Chest Exam: Positive: Clear to auscultation, Normal air movement Heart Exam: Positive: Rate Normal, Regular Rhythm, Normal S1, Normal S2; Negative: Murmurs, Rubs Abdomen Exam: Positive: Normal bowel sounds, Soft; Negative: Tenderness, Hepatospenomegaly Extremity Exam: Positive: Normal pulses, Tenderness (right forearm), Swelling (decreased from before), Other (right forearm has surgical dressing after I and D); Negative: Clubbing, Cyanosis, Edema Neuro Exam: Positive: Normal Speech, Strength at 5/5 X4 ext Psych Exam: Positive: Mental status NL, Mood NL, Oriented x 3 Assessment /Plan Assessment 24 year old male with h/o Hepatitis C, depression, PTSD, IV drug use last use as per patient 1 week ago when he had developed a small area of redness and swelling about 1.1 x 1.2 cm after shooting for which he had come ot the ED. He was evaluated by Surgery and felt there was not enought collection to be drained. He was sent home with clindamycin. Patient claims that he has been taking the antibiotics 3 times a day however his arm continued to swell, become more red and spread from the right antecubital fossa up to the wrist and up the arm also. Today he started having fever and chills. Also says he has been unable to eat for 3 days . He also complains of loose bowel movements 2 to 3 times a day. Patient had repeat US of the fore arm and Today's exam shows a complex mixed echo seemingly cystic and solid area which measures 6.6 x 4.4 x 5.8 cm. The color Doppler images show evidence of an artery passing through this structure. Mervin was admitted for abscess and cellulitis of right arm and forearm after IV drug use not responding to oral antibiotics. Right fore arm abscess and cellulitis s/p IV drug use and possible extravasation. S/p I&D on 07/13/19 Dr Pisano. Continue Vanco and ceftriaxone Morphine for pain Sepsis due to the above will continue with ceftiaxone , vancomycin and IVF Lactic acidosis due to infection resolved. IV drug user No signs of withdrawal at present Patient claims he gets Methadone from [employer] will have to confirm this before prescribing. Hepatitis C No issues at present. Plan/VTE VTE Prophylaxis Ordered?: Yes VS, I&O, 24H, Fishbone Vital Signs/I&O Vital Signs Date Time Temp Pulse Resp B/P (MAP) Pulse Ox O2 Delivery O2 Flow Rate FiO2 07/14/19 06:00 100.1 83 20 126/66 (86) 100 Room Air I&O- Last 24 Hours up to 6 AM 07/14/19 06:00 Intake Total 4160 ml Output Total 1105 ml Balance 3055 ml Laboratory Data 24H LABS Laboratory Tests 2 07/13/19 12:29: Immature Granulocyte % (Auto) 0.4, Neutrophils (%) (Auto) 80.2H, Lymphocytes (%) (Auto) 9.4L, Monocytes (%) (Auto) 9.0H, Eosinophils (%) (Auto) 0.6, Basophils (%) (Auto) 0.4, Neutrophils # (Auto) 11.0H, Lymphocytes # (Auto) 1.3L, Monocytes # (Auto) 1.2H, Eosinophils # (Auto) 0.1, Basophils # (Auto) 0.1, Nucleated Red Blood Cells % (auto) 0.0, Lactic Acid Level 2.6*H 07/13/19 13:18: Anion Gap 2L, Glomerular Filtration Rate > 60.0, Calcium Level 8.4L, C-Reactive Protein, Quantitative 8.27H 07/13/19 17:09: Lactic Acid Followup at 4 Hours 0.9 07/14/19 05:08: Immature Granulocyte % (Auto) 0.5, Neutrophils (%) (Auto) 72.9H, Lymphocytes (%) (Auto) 14.3L, Monocytes (%) (Auto) 10.3H, Eosinophils (%) (Auto) 1.6, Basophils (%) (Auto) 0.4, Neutrophils # (Auto) 10.0H, Lymphocytes # (Auto) 2.0, Monocytes # (Auto) 1.4H, Eosinophils # (Auto) 0.2, Basophils # (Auto) 0.1, Nucleated Red Blood Cells % (auto) 0.0, Anion Gap 7L, Glomerular Filtration Rate > 60.0, Calcium Level 7.8L CBC/BMP Laboratory Tests 07/13/19 12:29 07/13/19 13:18 07/14/19 05:08 Microbiology Microbiology 07/13/19 Blood Culture, Received Pending 07/13/19 Blood Culture, Received Pending TJ BISHOP MD Jul 14, 2019 08:28
[2019-07-14] MEDS: D5W/0.9% SODIUM CHLORIDE 1,000 ML IV SCH ×2 (15:01→22:05)
[2019-07-14] MEDS: cefTRIAXone SOD 2 GM in D5W MINI-BAG PLUS 50 ML IV SCH (15:01)
[2019-07-14] MEDS ORDERED: VANCOMYCIN HCL 500 MG in D5W MINI-BAG PLUS 100 ML IV ONE (17:00)
--- NOTE | 2019-07-14 19:02 | PHACANCOPD ---
PHARMACY VANCOMYCIN DOSING Pt Demographics Demographics Patient Age:24 , Weight:61.800 , Gender: male Adjusted Body Weight Date: 07/13/19, Adjusted Body Weight: Kg Events Past 24 Hours Events Past 24 Hours: YES: Elevation in WBC; NO: Dialysis, Diuretic Therapy, Change in CrCl, Fever, Pending Diagnostics, Pending Procedures, Other Vancomycin Vancomycin indication: ssti Vancomycin Target Ranges: 10-20 mcg/ml Vancomycin Load Y/N: Yes Load Dose Date Time Vancomycin Load Dose: 1250 MG Date: 07/13/19 Time: 1600 Vancomycin Dose Date: 07/13/19. Current Vancomycin Dose: [1 GM IV Q8H] Intermittent Dosing?: No Labs Micro Microbiology 07/13/19 Blood Culture - Preliminary, Resulted No growth after 24 hours . All specim... 07/13/19 Blood Culture - Preliminary, Resulted No growth after 24 hours . All specim... Creatinine Clearance Date:07/13/19. Creatinine Clearance: . Assessment and Plan Maintaining Current Dose?: No Reason for dose change: Trough too low Pharmacist Note Pharmacist Note Date: 07/14/19. Pharmacist note: A trough prior to the third dose resulted as 6.7mcg/mL today, well below our goal trough of 10-20mcg/mL. An additional dose of 500mg was scheduled for 1700 and his maintenance dose changed to 1 gram every 8 hours starting tonight at 2200. A subsequent trough was scheduled for 0500 on 07/15/19. We will continue to monitor and make adjustments as needed. Date: 07/13/19. Pharmacist note: Pharmacy consulted for Vancomycin dosing for treatment of cellulitis with a goal trough of 10-20 mcg/ml. Patient has no history of MRSA or Vanco here at [facility]. Patient has failed outpatient Clindamycin and is currently also being treated with Ceftriaxone 2 gm q24h. Of note, patient is febrile and has an elevated white count and lactic acid. We'll load him with 1250 mg and follow with 1 gm IV q8h. Pharmacy will continue to monitor and make adjustments as needed. ARMANDO TORRES PHARMACY Jul 14, 2019 19:02
[2019-07-15 05:20] LABS: BASO # 0.1 10^3/uL (0.0-0.2); BASO % 0.8 % (0.0-1.0); EOS # 0.3 10^3/uL (0.0-0.5); EOS % 4.2 % (0.0-3.0); HEMATOCRIT 39.2 % (42.0-52.0); HEMOGLOBIN 12.7 g/dl (13.5-17.5); LYMPH # 1.9 10^3/uL (1.5-5.0); LYMPH % 24.6 % (24.0-44.0); MEAN CORPUSCULAR HEMOGLOBIN 30.1 pg (27.0-33.0); MEAN CORPUSCULAR HGB CONC 32.4 g/dl (32.0-36.5); MEAN CORPUSCULAR VOLUME 92.9 fl (80.0-96.0); MONO % 12.4 % (0.0-5.0); NEUTROPHILS # 4.4 10^3/uL (1.5-8.5); NEUTROPHILS % 57.6 % (36.0-66.0); PLATELET COUNT, AUTOMATED 295 10^3/uL (150-450); RED BLOOD COUNT 4.22 10^6/uL (4.30-6.10); WHITE BLOOD COUNT 7.7 10^3/uL (4.0-10.0)
[2019-07-15 05:42] LABS: BLOOD UREA NITROGEN 9 MG/DL (7-18); CALCIUM LEVEL 8.2 MG/DL (8.5-10.1); CARBON DIOXIDE LEVEL 26 MEQ/L (21-32); CHLORIDE LEVEL 109 MEQ/L (98-107); CREATININE FOR GFR 0.67 MG/DL (0.70-1.30); GLOMERULAR FILTRATION RATE > 60.0 (>60); GLUCOSE, FASTING 97 MG/DL (70-100); SODIUM LEVEL 141 MEQ/L (136-145); VANCOMYCIN LEVEL TROUGH 9.7 UG/ML (10.0-20.0)
--- NOTE | 2019-07-15 05:49 | PHACANCOPD ---
PHARMACY VANCOMYCIN DOSING Pt Demographics Demographics Patient Age:24 , Weight:61.800 , Gender: male Adjusted Body Weight Date: 07/13/19, Adjusted Body Weight: Kg Events Past 24 Hours Events Past 24 Hours: NO: Dialysis, Diuretic Therapy, Change in CrCl, Fever, Elevation in WBC, Pending Diagnostics, Pending Procedures, Other Vancomycin Vancomycin indication: ssti Vancomycin Target Ranges: 10-20 mcg/ml Vancomycin Load Y/N: Yes Load Dose Date Time Vancomycin Load Dose: 1250 MG Date: 07/13/19 Time: 1600 Vancomycin Dose Date: 07/13/19. Current Vancomycin Dose: [1 GM IV Q8H] Intermittent Dosing?: No Labs Labs Item Value Date Time White Blood Count 7.7 10^3/uL 07/15/19 0504 Creatinine 0.67 MG/DL L 07/15/19 0504 Blood Urea Nitrogen 9 MG/DL 07/15/19 0504 Anion Gap 6 MEQ/L L 07/15/19 0504 Vancomycin Level Trough 9.7 UG/ML L 07/15/19 0504 Vital Signs Label Value Date Time Patient Temperature 98.7 degrees F 07/14/19 2200 Temperature Source Oral 07/14/19 2200 Micro Microbiology 07/13/19 Blood Culture - Preliminary, Resulted No growth after 24 hours . All specim... 07/13/19 Blood Culture - Preliminary, Resulted No growth after 24 hours . All specim... Creatinine Clearance Date:07/13/19. Creatinine Clearance: [~170]. Assessment and Plan Maintaining Current Dose?: Yes Reason for dose change: No Dose Change Pharmacist Note Pharmacist Note Date: 07/15/19. Pharmacist note:Trough of 9.7 is acceptable. will continue curre nt dosing. Will monitor and make adjustments as needed. SOO MA PHARMACY Jul 15, 2019 05:49
[2019-07-15 06:00] VITALS: BP 113/63
[2019-07-15] MEDS: VANCOMYCIN HCL 1,000 MG, VIAL MATE ADAPTER 1 EACH in D5W 250 ML IV SCH (06:17)
--- NOTE | 2019-07-15 08:19 | IPNPDOC ---
Text Note Date of Service The patient was seen on 07/15/19. NOTE No acute events overnight. Pain and swelling have improved. He had the dressing changed yesterday, but he can't do it himself. Nursing staff are concerned that he won't be able to do it. VSSAF NAD skin - rt forearm dressing is c/d/i labs - below A) 24y/o male with rt forearm abscess P) reg diet abx packing changes daily no follow up needed with surgery call office with any questions stable for d/c from surgical standpoint. Jose Maria Pisano DO VS,Fishbone, I+O VS, Fishbone, I+O Laboratory Tests 07/15/19 05:04 Vital Signs Date Time Temp Pulse Resp B/P (MAP) Pulse Ox O2 Delivery O2 Flow Rate FiO2 07/14/19 22:00 98.7 90 18 120/62 (81) 100 Room Air I&O- Last 24 Hours up to 6 AM 07/15/19 05:59 Intake Total 4810 ml Output Total 1225 ml Balance 3585 ml ANYA PISANO DO Jul 15, 2019 08:19
--- NOTE | 2019-07-15 09:44 | PHACANCOPD ---
PHARMACY VANCOMYCIN DOSING Pt Demographics Demographics Patient Age:24 , Weight:61.800 , Gender: male Adjusted Body Weight Date: 07/13/19, Adjusted Body Weight: Kg Vancomycin Vancomycin indication: ssti Vancomycin Target Ranges: 10-20 mcg/ml Vancomycin Load Y/N: Yes Load Dose Date Time Vancomycin Load Dose: 1250 MG Date: 07/13/19 Time: 1600 Vancomycin Dose Date: 07/13/19. Current Vancomycin Dose: [1 GM IV Q8H] Intermittent Dosing?: No Labs Micro Microbiology 07/15/19 Wound Culture, Received Pending 07/13/19 Blood Culture - Preliminary, Resulted No growth after 24 hours . All specim... 07/13/19 Blood Culture - Preliminary, Resulted No growth after 24 hours . All specim... Creatinine Clearance Date:07/13/19. Creatinine Clearance: [~170]. Assessment and Plan Maintaining Current Dose?: Yes Reason for dose change: Trough too low Pharmacist Note Pharmacist Note Date: 0600 dose was not given until 0800. Supplemented with extra 1gm since 9.7 trough only after 2 doses. continue 1g q8h @1600. trough scheduled for 0700. Wound culture and blood culture pending. will monitor and make adjustments as needed. Date: 07/15/19. Pharmacist note:Trough of 9.7 is acceptable. will continue current dosing. Will monitor and make adjustments as needed. AVERY VASQUEZ PHARMACY Jul 15, 2019 09:44
[2019-07-15] MEDS ORDERED: CLIN300C5 PO (10:43)
[2019-07-15] MEDS ORDERED: NORC1TAB7 PO (10:47)
[2019-07-15] MEDS ORDERED: CURIMIS TP ×2 (10:56→11:18)
[2019-07-15] MEDS ORDERED: VANCOMYCIN HCL 1,000 MG, VIAL MATE ADAPTER 1 EACH in D5W 250 ML IV ONE (11:00)
[2019-07-15] MEDS ORDERED: cefTRIAXone SOD 2 GM in D5W MINI-BAG PLUS 50 ML IV SCH (12:00)
[2019-07-15] MEDS ORDERED: VANCOMYCIN HCL 1,000 MG, VIAL MATE ADAPTER 1 EACH in D5W 250 ML IV SCH (16:00)
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
== END 2019-07-15 12:20 | disposition home or self-care (01) | DRG 720 ==
LOC: M ED 11:35 → M ED INP 13:53 → ENRESERV 14:10 → M MSPAV 14:45
PROVIDERS: ADMIT Internal Medicine Nephrology; ATTEND Internal Medicine Nephrology
PROC: 0X9D0ZZ Drainage of Right Lower Arm, Open Approach (ICD-10-PCS; principal; 2019-07-13 21:30)
DX: A41.9 Sepsis, unspecified organism (principal); L02.413 Cutaneous abscess of right upper limb; F15.10 Other stimulant abuse, uncomplicated; E87.2 Acidosis; Z88.0 Allergy status to penicillin; Z88.8 Allergy status to other drugs, medicaments and biological substances; Z91.018 Allergy to other foods; B18.2 Chronic viral hepatitis C; F31.9 Bipolar disorder, unspecified; F43.10 Post-traumatic stress disorder, unspecified; L03.113 Cellulitis of right upper limb; F17.200 Nicotine dependence, unspecified, uncomplicated

== ENCOUNTER 2019-09-07 14:45 | Inpatient (IN) | payer OTHER ==
[~2019-09-07] VITALS: Ht 180.3 cm; Wt 90.9 kg
[~2019-09-07 14:45] MED LIST changes: +CLIN300C5 PO; +CURIMIS TP; +NORC1TAB7 PO
[2019-09-07 15:49] LABS: HEMATOCRIT 38.7 % (42.0-52.0); HEMOGLOBIN 12.8 g/dl (13.5-17.5); MEAN CORPUSCULAR HEMOGLOBIN 31.1 pg (27.0-33.0); MEAN CORPUSCULAR HGB CONC 33.1 g/dl (32.0-36.5); MEAN CORPUSCULAR VOLUME 93.9 fl (80.0-96.0); PLATELET COUNT, AUTOMATED 189 10^3/uL (150-450); RED BLOOD COUNT 4.12 10^6/uL (4.30-6.10); WHITE BLOOD COUNT 5.4 10^3/uL (4.0-10.0)
[2019-09-07 16:02] LABS: ACETAMINOPHEN LEVEL < 2.0 UG/ML (10.0-30.0); ALBUMIN 4.1 GM/DL (3.2-5.2); ALT/SGPT 62 U/L (12-78); BILIRUBIN,DIRECT 0.2 MG/DL (0.0-0.2); BILIRUBIN,TOTAL 0.7 MG/DL (0.2-1.0); BLOOD UREA NITROGEN 11 MG/DL (7-18); CALCIUM LEVEL 8.8 MG/DL (8.5-10.1); CARBON DIOXIDE LEVEL 26 MEQ/L (21-32); CHLORIDE LEVEL 107 MEQ/L (98-107); ETHYL ALCOHOL (ETHANOL) < 0.003 % (0.000-0.010); GLOMERULAR FILTRATION RATE > 60.0 (>60); GLUCOSE, FASTING 110 MG/DL (70-100); POTASSIUM SERUM 3.9 MEQ/L (3.5-5.1); SALICYLATE LEVEL < 1.7 MG/DL (5.0-30.0); SODIUM LEVEL 139 MEQ/L (136-145); TOTAL PROTEIN 7.8 GM/DL (6.4-8.2)
[2019-09-07 19:13] LABS: AMPHETAMINES LEVEL URINE POSITIVE (NEGATIVE); BARBITURATES URINE NEGATIVE (NEGATIVE); BENZODIAZEPINES URINE NEGATIVE (NEGATIVE); CANNABINOIDS URINE NEGATIVE (NEGATIVE); COCAINE METABOLITE URINE POSITIVE (NEGATIVE); METHADONE URINE NEGATIVE (NEGATIVE); OPIATES URINE NEGATIVE (NEGATIVE); PHENCYCLIDINE URINE NEGATIVE (NEGATIVE)
[2019-09-07] MEDS ORDERED: MOM 30ML SUSPENSION UDC PO PRN (19:45)
[2019-09-07] MEDS ORDERED: MAALOX 30 ML SUSP *UDC PO PRN (19:45)
[2019-09-07] MEDS ORDERED: ACETAMINOPHEN TAB 650MG DOSE (2X325MG) PO PRN (19:45)
[2019-09-07] MEDS ORDERED: OLANZapine ORAL DISINTEGRATING TAB 5MG PO PRN (19:45)
[2019-09-07] MEDS ORDERED: REME30TA PO (20:17)
[2019-09-07 21:45] VITALS: BP 114/73
[2019-09-08 06:13] VITALS: BP 102/56
[2019-09-08] MEDS: cloNIDine 0.1 MG TAB PO SCH ×3 (09:00→21:00)
--- NOTE | 2019-09-08 09:13 | MHHPEPDOC ---
General Date Of Admission: Sep 07, 2019 Legal Status: 9.39 Chief Complaint "I'm still out of it" History of Present Illness HISTORY OF THE PRESENT ILLNESS: Patient is a 24 -year-old , male, who presents to [facility] after using various drugs and becoming intoxicated. He was notably somewhat disturbed and psychotic after using methamphetamine and other stimulants. When the patient was met with he reported that he was "too out of it" to relay any effective information as he still appear to be quite intoxicated and withdrawing from multiple substances. Information is extracted from previous charts and information. Psychiatric Review of Systems Psychosis: paranoia, disorganization Past Psychiatric History Previous Psychiatric Diagnosis: substance induced psychosis. Previous Psychiatric Admissions: multiple previous, last several weeks ago. Suicide Attempts: none noted. Psychiatric Follow-up: none. Psychiatric medications: none. Family Medical/Psychiatric HX Medical Problems unclear Addiction History cocaine, ecstasy, opioids, methamphetamines Social History Current Living Situation: appears to live in various friends and families homes. Education: high school. Employment: unemployed. Social Support: few. Legal: drug-related problems. Marital: appears to be single no changes. Mental Status Examination General Appearance: unkempt Build: thin Demeanor: preoccupied Eye Contact: avoidant Activity: slowed Behavior: restless Speech: slurred Mood: euphoric Affect: inappropriate Thought Process: incoherent Insight: poor Judgment: Poor A-FIB/CHADSVASC A-FIB History Current/History of A-Fib/PAF?: No Assessment 24-year-old man presents to [facility] after misusing multiple substances and becoming quite distorted, this is in line with his presentation, he will likely result in a day or 2 once he becomes sober. Problem List Problems: (1) Psychotic disorder Status: Acute Response to Treatment: Uncontrolled Problem Text: Supportive treatment at this time (2) Polysubstance abuse Status: Chronic Response to Treatment: Uncontrolled Discussed With: Pt and Family Services Problem Text: Referrals outpatient substance abuse versus rehab. Initial Treatment Plan 1. Patient was admitted on a [9.39] status. 2. Complete history was obtained. 3. With patients permission, family will be contacted and database will be expanded. 4. Patients medication regimen will be reviewed and changed accordingly. 5. Patient will be provided with protected environment. 6. Patient will be treated with individual, group, and milieu therapies. 7. Patient will receive supportive psych-education. 8. Discharge planning will commence immediately. 9. Outpatient follow-up treatment will be strongly recommended. 10. The initial treatment plan will focus initially on: * Altered thoughts * substance use ESTIMATED LENGTH OF STAY: 2-3 DAYS. TIME SPENT COUNSELING AND COORDINATING INITIAL CARE: 30 minutes. Vital Signs Vital Signs Date Time Temp Pulse Resp B/P (MAP) Pulse Ox O2 Delivery O2 Flow Rate FiO2 09/08/19 06:13 98.3 78 14 102/56 (71) 96 Room Air Laboratory Data 24H Labs Laboratory Tests 2 09/07/19 15:20: Nucleated Red Blood Cells % (auto) 0.0, Anion Gap 6L, Glomerular Filtration Rate > 60.0, Calcium Level 8.8, Total Bilirubin 0.7, Direct Bilirubin 0.2, Aspartate Amino Transf (AST/SGOT) 30, Alanine Aminotransferase (ALT/SGPT) 62, Alkaline Phosphatase 64, Total Protein 7.8, Albumin 4.1, Albumin/Globulin Ratio 1.1, Thyroid Stimulating Hormone (TSH) 1.140, Salicylates Level < 1.7L, Acetaminophen Level < 2.0L, Ethyl Alcohol Level < 0.003 09/07/19 18:28: Urine Opiates Screen NEGATIVE, Urine Methadone Screen NEGATIVE, Urine Barbiturates Screen NEGATIVE, Urine Phencyclidine Screen NEGATIVE, Urine Amphetamines Screen POSITIVEH, Urine Benzodiazepines Screen NEGATIVE, Urine Cocaine Metabolite Screen POSITIVEH, Urine Cannabinoids Screen NEGATIVE CBC/BMP Laboratory Tests 09/07/19 15:20 Medications Scheduled Mirtazapine (Remeron) 30 Mg Tablet, 30 MG PO QHS, (Reported) Allergies Coded Allergies: trazodone (Verified Allergy, Severe, ANAPHYLAXIS, 09/07/19) Penicillins (Verified Allergy, Intermediate, HIVES, 09/07/19) Potato (Verified Adverse Reaction, Mild, vomiting, 06/11/19) VALENTINA CORREA 3, 2020 09:13
[2019-09-08] MEDS ORDERED: DICYCLOMINE 10 MG CAP PO PRN (10:30)
[2019-09-08 17:08] VITALS: BP 100/58
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
[2019-09-08] MEDS: MIRTAZAPINE 15 MG TAB PO SCH (21:48)
[2019-09-09 06:13] VITALS: BP 110/57
[2019-09-09] MEDS: cloNIDine 0.1 MG TAB PO SCH ×3 (09:00→20:33)
--- NOTE | 2019-09-09 09:26 | MHIPNPDOC ---
[facility] Progress Note Progress Note DOS 09/09/2019 Events Overnight: none Group Attendance:: none Symptom changes (psych ROS): refuses to meet today, appears to be quite groggy by report Staff Report: staff report patient is still quite groggy from his withdrawal and is generally uninterested engaging in care this time. Medical ROS: Patient refuses interview today MSE: Vitals: Below Patient refuses interview today Vital Signs Vital Signs Date Time Temp Pulse Resp B/P (MAP) Pulse Ox O2 Delivery O2 Flow Rate FiO2 09/09/19 06:13 97.8 63 12 110/57 (74) 09/08/19 17:08 Room Air 09/08/19 06:13 96 Current Medications Current Medications Medications (Trade) Dose Ordered Sig/Vilma Route PRN Reason Start Time Stop Time Status Last Admin Dose Admin Acetaminophen (Tylenol Tab) 650 mg Q6HP PRN PO HEADACHE or DISCOMFORT 09/07/19 19:45 Al Hydrox/Mg Hydrox/Simethicone (Mylanta) 30 ml Q4HP PRN PO HEARTBURN/INDIGESTION 09/07/19 19:45 Clonidine HCl (Catapres) 0.1 mg TID PO 09/08/19 09:00 Dicyclomine HCl (Bentyl) 10 mg Q8HP PRN PO gut discomfort 09/08/19 10:30 Home Med (Med Rec Complete!) ASDIRECTED XX 09/07/19 20:30 09/07/19 20:18 DC Magnesium Hydroxide (Milk Of Magnesia) 30 ml DAILYPRN PRN PO CONSTIPATION 09/07/19 19:45 Mirtazapine (Remeron) 30 mg QHS PO 09/08/19 21:00 09/08/19 21:48 Olanzapine (ZyPREXA ZYDIS) 5 mg BIDP PRN PO AGITATION 09/07/19 19:45 Allergies Coded Allergies: trazodone (Verified Allergy, Severe, ANAPHYLAXIS, 09/07/19) Penicillins (Verified Allergy, Intermediate, HIVES, 09/07/19) Potato (Verified Adverse Reaction, Mild, vomiting, 06/11/19) Problems (1) Psychotic disorder Status: Acute Response to Treatment: Improving Problem Text: Will continue to treat supportively, highly likely to be related to substance abuse.Will extend patient's legals today, as he is still not well enough from his substance induced psychosis to be discharged, however, anticipate resolution in the next 24 hours (2) Polysubstance abuse Status: Chronic Response to Treatment: Uncontrolled Problem Text: Will refer to addictions Plan / VTE VTE Prophylaxis Ordered?: No Plan Diet: Continue Current Activity: Continue Current Anticipated Discharge: Home (Likely tomorrow) VALENTINA CORREA DO Sep 09, 2019 09:26
[2019-09-09 17:19] VITALS: BP 107/53
[2019-09-09] MEDS: MIRTAZAPINE 15 MG TAB PO SCH (20:34)
[2019-09-10 06:20] VITALS: BP 95/56
--- NOTE | 2019-09-10 09:57 | MHIPNPDOC ---
[facility] Progress Note Progress Note DATE OF SERVICE: 09/10/19 HISTORY: . VITAL SIGNS: See below. NEW TEST RESULTS: . CURRENT MEDICATIONS: See below. MENTAL STATUS EXAMINATION: Patient is a -year old male, who is . Speech: Is . Language skills are . Thought processes including: . Thought content: . Abstract reasoning, and computation: . Description of associa tions: . Description of abnormal or psychotic thoughts: . Judgment: . Insight: [very limited, good, fair. poor]. Orientation: . Recent and remote memory: . Attention span and concentration: . Language: . Fund of knowledge: . Mood: . Affect: . DIAGNOSES: 1. . 2. . 3. . ASSESSMENT: MANAGEMENT PLAN: . TIME SPENT: minutes. Vital Signs Vital Signs Date Time Temp Pulse Resp B/P (MAP) Pulse Ox O2 Delivery O2 Flow Rate FiO2 09/10/19 06:20 98.4 75 14 95/56 (69) 97 09/09/19 17:19 Room Air Current Medications Current Medications Medications (Trade) Dose Ordered Sig/Vilma Route PRN Reason Start Time Stop Time Status Last Admin Dose Admin Acetaminophen (Tylenol Tab) 650 mg Q6HP PRN PO HEADACHE or DISCOMFORT 09/07/19 19:45 Al Hydrox/Mg Hydrox/Simethicone (Mylanta) 30 ml Q4HP PRN PO HEARTBURN/INDIGESTION 09/07/19 19:45 Clonidine HCl (Catapres) 0.1 mg TID PO 09/08/19 09:00 Dicyclomine HCl (Bentyl) 10 mg Q8HP PRN PO gut discomfort 09/08/19 10:30 Home Med (Med Rec Complete!) ASDIRECTED XX 09/07/19 20:30 09/07/19 20:18 DC Magnesium Hydroxide (Milk Of Magnesia) 30 ml DAILYPRN PRN PO CONSTIPATION 09/07/19 19:45 Mirtazapine (Remeron) 30 mg QHS PO 09/08/19 21:00 09/09/19 20:34 Olanzapine (ZyPREXA ZYDIS) 5 mg BIDP PRN PO AGITATION 09/07/19 19:45 Allergies Coded Allergies: trazodone (Verified Allergy, Severe, ANAPHYLAXIS, 09/07/19) Penicillins (Verified Allergy, Intermediate, HIVES, 6/2/20) Potato (Verified Adverse Reaction, Mild, vomiting, 06/11/19) VALENTINA CORREA DO Sep 10, 2019 09:57
[2019-09-10 10:06] VITALS: BP 131/68
[2019-09-10] MEDS: cloNIDine 0.1 MG TAB PO SCH (10:06)
--- NOTE | 2019-09-10 10:11 | MHDSPDOC ---
[facility] Discharge Summary Discharge Summary DATE OF ADMISSION: Sep 07, 2019 at 19:42 DATE OF DISCHARGE: 09/10/2019 DISCHARGE DIAGNOSES: See Problem list below REASON FOR ADMISSION: 24-year-old man presents after using various substances becoming distorted and making is our statements, as this is usual presentation to her unit CONSULTANTS INVOLVED:[ None (basic hospitalist screening)] TREATMENT AND PROGRESS ON THE UNIT : Medication changes: patient was resumed on home mirtazapine and supportive treatment for withdrawal from various substances Behavior on unit: was friendly, but refused interview at times, being on interested in the treatment process, when asked that this would be part of him being discharged, he became much more friendly and amenable, and met with this provider Treatment attendance: none Notable issues on presentation: generally on interested in treatment, and reports that he recent got out of rehab and use shortly thereafter, reports that he has difficulties with substances and that is likely bring him in multiple times. 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 Legal status considerations: The patient at the time of discharge did not meet criteria for involuntary admission/extension due to having a baseline mental status exam, improved insight into the situation, They are engaged in the discharge process, as well as being friendly and amenable in behavioral control and havent been engaging in any observed concerning behavior or ideation recently. They decline voluntary extension/admission at this time and must be discharged in good lyla, as Im unable to make a case for holding the patient against their will. They may have historical risk factors of admissions and other interactions with psychiatry however, those are not modifiable from a clinical perspective. The patient will need to be discharged in good lyla. MENTAL STATUS EXAMINATION ON DISCHARGE: [General: Well dressed with good hygiene Speech: Spontaneous and fluid Thought processes: Linear and logical Thought content: Future orientated Abstract reasoning, and computation: Intact Description of associations: Intact Description of abnormal or psychotic thoughts:Denies any suicidal or homicidal ideation. Denies any auditory or visual hallucinations. Does not appear to be responding to internal stimuli. Does not appear to be endorsing any bizarre or paranoid ideation. Judgment: chronically limited Insight: improved Orientation: Alert and orientated 3 Recent and remote memory: Intact Attention span and concentration: Intact Fund of knowledge: Adequate Mood: "okay" Affect: Euthymic with a full range] PLAN/FOLLOWUP ARRANGEMENTS: Follow up appointments made (PCP and MH in 5 days of D/C date) and safety plan completed. Safety Planning aspects completed prior to discharge [RN reviewed crisis hotline information and other aspects to empower patient to access care in interim before next appointment.] Patient dispositioned to [facility] for housing The amount of time spent in the coordination of care for this patient was approximately 30 minutes. Vital Signs/I&Os Vital Signs Date Time Temp Pulse Resp B/P (MAP) Pulse Ox O2 Delivery O2 Flow Rate FiO2 09/10/19 10:06 131/68 09/10/19 06:20 98.4 75 14 97 09/09/19 17:19 Room Air Medications Scheduled Mirtazapine (Remeron) 30 Mg Tablet, 30 MG PO QHS, (Reported) Allergies Coded Allergies: trazodone (Verified Allergy, Severe, ANAPHYLAXIS, 09/07/19) Penicillins (Verified Allergy, Intermediate, HIVES, 09/07/19) Potato (Verified Adverse Reaction, Mild, vomiting, 06/11/19) Problems (1) Psychotic disorder Status: Resolved (2) Polysubstance abuse Status: Chronic Plan / VTE VTE Prophylaxis Ordered?: VALENTINA Ratliff DO Sep 10, 2019 10:11
== END 2019-09-10 11:20 | disposition home or self-care (01) | DRG 774 ==
LOC: M ED 14:45 → M ED INP 19:42 → M PSY 21:29
PROVIDERS: ADMIT Psychiatry & Neurology Addiction Medicine; ATTEND Psychiatry & Neurology Addiction Medicine
DX: F19.94 Other psychoactive substance use, unspecified with psychoactive substance-induced mood disorder (principal); R45.851 Suicidal ideations; F14.90 Cocaine use, unspecified, uncomplicated; F31.81 Bipolar II disorder; Z88.0 Allergy status to penicillin; Z88.5 Allergy status to narcotic agent; Z91.018 Allergy to other foods; F17.200 Nicotine dependence, unspecified, uncomplicated; F15.90 Other stimulant use, unspecified, uncomplicated

== ENCOUNTER → 2020-03-09 | Outpatient (REF) | payer OTHER ==
[~2020-03-09] MED LIST changes: -CLIN300C5 PO; +CLIN300C6 PO; -FLUO10CA15 PO; +FLUO10CA16 PO; +MIRT-60 PO; +RISP-7 PO; +RISP-9 PO; -RISP0.5T3 PO; -RISP2TAB3 PO
== END ==
LOC: M LAB REF 15:44
PROVIDERS: ATTEND Surgery
DX: U07.1 COVID-19 (principal)

== ENCOUNTER 2022-07-01 13:04 | Inpatient (IN) | payer MEDICAID, OTHER ==
[~2022-07-01] VITALS: Ht 175.3 cm; Wt 70.5 kg
[~2022-07-01 13:04] MED LIST changes: -ARIP1TAB2 PO; +ARIP1TAB43 PO; +CLIN-250 PO; -CLIN150C14 PO; +CLIN150C17 PO; -CLIN300C6 PO; +DIVA125C6 PO; -DIVA1CAP PO; -FLUO10CA16 PO; +FLUO10CA18 PO; +METH-1177 PO; -METH10TA2 PO
[2022-07-01 14:12] LABS: BASO % 0.5 % (0.0-1.0); EOS % 0.2 % (0.0-3.0); HEMATOCRIT 40.9 % (42.0-52.0); HEMOGLOBIN 13.5 g/dl (13.5-17.5); LYMPH # 1.4 10^3/uL (1.5-5.0); MEAN CORPUSCULAR HEMOGLOBIN 31.3 pg (27.0-33.0); MEAN CORPUSCULAR VOLUME 94.7 fl (80.0-96.0); MONO # 1.1 10^3/uL (0.0-0.8); MONO % 17.8 % (2.0-8.0); NEUTROPHILS # 3.6 10^3/uL (1.5-8.5); NEUTROPHILS % 58.2 % (36.0-66.0); PLATELET COUNT, AUTOMATED 224 10^3/uL (150-450); RED BLOOD COUNT 4.32 10^6/uL (4.30-6.10); WHITE BLOOD COUNT 6.1 10^3/uL (4.0-10.0)
[2022-07-01 14:31] LABS: ETHYL ALCOHOL (ETHANOL) < 0.003 % (0.000-0.010)
[2022-07-01 14:33] LABS: ACETAMINOPHEN LEVEL < 2.0 UG/ML (10.0-20.0); ALBUMIN 4.1 G/DL (3.2-5.2); ALKALINE PHOSPHATASE 54 U/L (46-116); ALT/SGPT 47 U/L (7.0-40); AST/SGOT 113 U/L (<34); BILIRUBIN,DIRECT 0.1 MG/DL (<0.4); BILIRUBIN,TOTAL 0.7 MG/DL (0.3-1.2); BLOOD UREA NITROGEN 22 MG/DL (9-23); CALCIUM LEVEL 8.7 MG/DL (8.5-10.1); CARBON DIOXIDE LEVEL 23 MMOL/L (20-31); CHLORIDE LEVEL 103 MMOL/L (98-107); CREATININE FOR GFR 0.82 MG/DL (0.70-1.30); GLOMERULAR FILTRATION RATE > 60.0 (>60); GLUCOSE, FASTING 68 MG/DL (60-100); POTASSIUM SERUM 4.5 MMOL/L (3.5-5.1); SALICYLATE LEVEL < 3.0 MG/DL (<30); SODIUM LEVEL 137 MMOL/L (136-145)
[2022-07-01 14:36] LABS: THYROID STIMULATING HORMONE 0.353 uIU/ML (0.55-4.78)
[2022-07-01 14:47] LABS: CPK CREATINE PHOSPHOKINASE 4819 U/L (46-171)
[2022-07-01] MEDS ORDERED: NS 1,000 ML IV ONE ×2 (18:00)
[2022-07-01 18:32] LABS: BARBITURATES URINE NEGATIVE (NEGATIVE); BENZODIAZEPINES URINE NEGATIVE (NEGATIVE); METHADONE URINE NEGATIVE (NEGATIVE); OPIATES URINE NEGATIVE (NEGATIVE); PHENCYCLIDINE URINE NEGATIVE (NEGATIVE)
[2022-07-01 18:44] LABS: AMPHETAMINES LEVEL URINE POSITIVE (NEGATIVE); CANNABINOIDS URINE POSITIVE (NEGATIVE); COCAINE METABOLITE URINE POSITIVE (NEGATIVE)
[2022-07-01] MEDS ORDERED: NS 1,000 ML in IV 1 EA IV ONE (19:40)
[2022-07-02 00:56] LABS: BLOOD UREA NITROGEN 15 MG/DL (9-23); CALCIUM LEVEL 7.9 MG/DL (8.5-10.1); CARBON DIOXIDE LEVEL 24 MMOL/L (20-31); CHLORIDE LEVEL 108 MMOL/L (98-107); CREATININE FOR GFR 0.73 MG/DL (0.70-1.30); GLOMERULAR FILTRATION RATE > 60.0 (>60); GLUCOSE, FASTING 82 MG/DL (60-100); POTASSIUM SERUM 3.8 MMOL/L (3.5-5.1); SODIUM LEVEL 139 MMOL/L (136-145)
[2022-07-02 01:32] LABS: CPK CREATINE PHOSPHOKINASE 3348 U/L (46-171)
[2022-07-02] MEDS: NS 1,000 ML IV SCH ×3 (02:54→11:47)
[2022-07-02 03:42] LABS: RSV AMPLIFICATION NEGATIVE (NEGATIVE)
[2022-07-02] MEDS ORDERED: HOME MED LIST COMPLETE! XX SCH (06:25)
[2022-07-02 07:56] LABS: ALBUMIN 3.1 G/DL (3.2-5.2); ALKALINE PHOSPHATASE 46 U/L (46-116); ALT/SGPT 37 U/L (7.0-40); AST/SGOT 59 U/L (<34); BILIRUBIN,TOTAL 0.4 MG/DL (0.3-1.2); BLOOD UREA NITROGEN 12 MG/DL (9-23); CALCIUM LEVEL 7.6 MG/DL (8.5-10.1); CARBON DIOXIDE LEVEL 24 MMOL/L (20-31); CHLORIDE LEVEL 109 MMOL/L (98-107); CPK CREATINE PHOSPHOKINASE 2189 U/L (46-171); CREATININE FOR GFR 0.71 MG/DL (0.70-1.30); GLOMERULAR FILTRATION RATE > 60.0 (>60); GLUCOSE, FASTING 77 MG/DL (60-100); POTASSIUM SERUM 3.9 MMOL/L (3.5-5.1); SODIUM LEVEL 140 MMOL/L (136-145); TOTAL PROTEIN 5.6 G/DL (5.7-8.2)
[2022-07-02] MEDS ORDERED: ACETAMINOPHEN TAB 650MG DOSE (2X325MG) PO PRN (13:35)
[2022-07-02] MEDS ORDERED: SODIUM CHLORIDE 0.9% 1000ML IV ONE (13:50)
[2022-07-02 14:51] VITALS: BP 113/65
[2022-07-02 18:00] VITALS: BP 113/66
[2022-07-02 20:00] VITALS: BP 112/66
[2022-07-03] MEDS: NS 1,000 ML IV SCH (00:59)
[2022-07-03 01:28] VITALS: BP 89/46
[2022-07-03 02:05] VITALS: BP 108/62
[2022-07-03 05:58] VITALS: BP 112/69
[2022-07-03 14:00] VITALS: BP 113/66
== END 2022-07-03 15:15 | DRG 812 ==
LOC: M ED 13:04 → M ED INP 23:44 → ENRESERV 07-02 14:05 → M MSPAV 07-02 14:59
PROVIDERS: ADMIT Internal Medicine; ATTEND Family Medicine
DX: T43.622A Poisoning by amphetamines, intentional self-harm, initial encounter (principal); M62.82 Rhabdomyolysis; F15.10 Other stimulant abuse, uncomplicated; T14.91XA Suicide attempt, initial encounter; Z20.822 Contact with and (suspected) exposure to COVID-19; R74.01 Elevation of levels of liver transaminase levels; Z88.1 Allergy status to other antibiotic agents; Z88.8 Allergy status to other drugs, medicaments and biological substances; Z91.018 Allergy to other foods; F17.210 Nicotine dependence, cigarettes, uncomplicated; Z79.899 Other long term (current) drug therapy

== ENCOUNTER 2022-07-03 13:52 | Inpatient (IN) | payer MEDICAID ==
[~2022-07-03] VITALS: Ht 175.3 cm; Wt 71.9 kg
[2022-07-03] MEDS ORDERED: ACETAMINOPHEN TAB 650MG DOSE (2X325MG) PO PRN (13:55)
[2022-07-03] MEDS ORDERED: MAALOX 30 ML SUSP *UDC PO PRN (13:55)
[2022-07-03] MEDS ORDERED: OLANZapine ORAL DISINTEGRATING TAB 5MG PO PRN (13:55)
[2022-07-03] MEDS ORDERED: traZODone 50 MG TAB PO PRN (13:55)
[2022-07-03] MEDS ORDERED: MOM 30ML SUSPENSION UDC PO PRN (13:55)
[2022-07-03 15:34] VITALS: BP 113/66
[2022-07-03] MEDS ORDERED: cloNIDine 0.1MG TABLET PO PRN (18:20)
[2022-07-03] MEDS: ONDANSETRON 4MG TAB PO PRN (18:53)
[2022-07-04 06:28] VITALS: BP 110/55
[2022-07-04] MEDS: ONDANSETRON 4MG TAB PO PRN (15:05)
[2022-07-04 18:56] VITALS: BP 135/68
[2022-07-04] MEDS: FLUTICASONE PROP 0.05% NASAL SPRAY 16 GM (FLONASE) NARES SCH (21:18)
[2022-07-04] MEDS: OLANZapine 5 MG TAB PO SCH (21:19)
[2022-07-04] MEDS: MIRTAZAPINE 7.5MG PER 1/2 TABLET PO SCH (21:19)
[2022-07-05 05:59] VITALS: BP 123/60
[2022-07-05] MEDS: FLUTICASONE PROP 0.05% NASAL SPRAY 16 GM (FLONASE) NARES SCH ×2 (09:54→22:12)
[2022-07-05] MEDS: OLANZapine 5 MG TAB PO SCH (22:11)
[2022-07-05] MEDS: MIRTAZAPINE 7.5MG PER 1/2 TABLET PO SCH (22:11)
[2022-07-06 06:37] VITALS: BP 118/57
[2022-07-06] MEDS: FLUTICASONE PROP 0.05% NASAL SPRAY 16 GM (FLONASE) NARES SCH ×2 (09:00→21:38)
[2022-07-06 16:42] VITALS: BP 128/72
[2022-07-06] MEDS: OLANZapine 5 MG TAB PO SCH (21:38)
[2022-07-06] MEDS: MIRTAZAPINE 15 MG TAB PO SCH (21:39)
[2022-07-07 06:50] VITALS: BP 123/66
[2022-07-07] MEDS: FLUTICASONE PROP 0.05% NASAL SPRAY 16 GM (FLONASE) NARES SCH ×2 (09:00→21:39)
[2022-07-07 16:54] VITALS: BP 135/56
[2022-07-07] MEDS: ONDANSETRON 4MG TAB PO PRN (19:42)
[2022-07-07] MEDS: MIRTAZAPINE 15 MG TAB PO SCH (21:39)
[2022-07-07] MEDS: OLANZapine 5 MG TAB PO SCH (21:39)
[2022-07-07] MEDS ORDERED: MAGIC MOUTHWASH SUSPENSION BTL SS PRN (23:05)
[2022-07-08 06:39] VITALS: BP 107/59
[2022-07-08] MEDS: FLUTICASONE PROP 0.05% NASAL SPRAY 16 GM (FLONASE) NARES SCH ×2 (09:00→21:37)
[2022-07-08 18:34] VITALS: BP 141/79
[2022-07-08] MEDS: OLANZapine 5 MG TAB PO SCH (21:37)
[2022-07-08] MEDS: MIRTAZAPINE 15 MG TAB PO SCH (21:37)
[2022-07-09] MEDS: hydrOXYzine 50 MG TAB PO PRN ×2 (01:03→20:59)
[2022-07-09 05:55] VITALS: BP 113/58
[2022-07-09] MEDS: FLUTICASONE PROP 0.05% NASAL SPRAY 16 GM (FLONASE) NARES SCH ×2 (09:00→20:57)
[2022-07-09] MEDS ORDERED: QUEtiapine FUMARATE 25 MG TAB PO PRN (10:10)
[2022-07-09 17:51] VITALS: BP 143/65
[2022-07-09] MEDS: SODIUM CHLORIDE NASAL 0.65% SPRAY BTL (OCEAN) PRN (20:58)
[2022-07-09] MEDS: MIRTAZAPINE 15 MG TAB PO SCH (20:59)
[2022-07-09] MEDS: OLANZapine 5 MG TAB PO SCH (20:59)
[2022-07-10 06:10] VITALS: BP 116/58
[2022-07-10] MEDS: FLUTICASONE PROP 0.05% NASAL SPRAY 16 GM (FLONASE) NARES SCH ×2 (10:54→22:03)
[2022-07-10] MEDS: SODIUM CHLORIDE NASAL 0.65% SPRAY BTL (OCEAN) PRN (13:05)
[2022-07-10 18:03] VITALS: BP 126/62
[2022-07-10] MEDS: OLANZapine 5 MG TAB PO SCH (22:02)
[2022-07-10] MEDS: MIRTAZAPINE 15 MG TAB PO SCH (22:02)
[2022-07-11 06:49] VITALS: BP 119/59
[2022-07-11] MEDS: FLUTICASONE PROP 0.05% NASAL SPRAY 16 GM (FLONASE) NARES SCH ×2 (09:00→21:00)
[2022-07-11] MEDS ORDERED: CLONI1TA PO (15:26)
[2022-07-11] MEDS ORDERED: OLAN5ZYD PO (15:26)
[2022-07-11] MEDS ORDERED: OLAN1TAB16 PO (15:26)
[2022-07-11] MEDS ORDERED: Sodium Chloride Nasal Spray (15:26)
[2022-07-11] MEDS ORDERED: MIRT-10 PO (15:26)
[2022-07-11] MEDS: SODIUM CHLORIDE NASAL 0.65% SPRAY BTL (OCEAN) PRN (16:10)
[2022-07-11 19:03] VITALS: BP 121/66
[2022-07-11] MEDS: OLANZapine 5 MG TAB PO SCH (21:00)
[2022-07-11] MEDS: MIRTAZAPINE 15 MG TAB PO SCH (21:00)
[2022-07-12 06:42] VITALS: BP 118/58
== END 2022-07-12 08:25 | DRG 774 ==
LOC: EEVIPCON 15:33 → M PSY 15:33
PROVIDERS: ADMIT Psychiatry & Neurology Psychiatry; ATTEND Student in an Organized Health Care Education/Training Program
DX: F15.14 Other stimulant abuse with stimulant-induced mood disorder (principal); F15.159 Other stimulant abuse with stimulant-induced psychotic disorder, unspecified; F60.3 Borderline personality disorder; F15.13 Other stimulant abuse with withdrawal; F43.10 Post-traumatic stress disorder, unspecified; F60.2 Antisocial personality disorder; M62.82 Rhabdomyolysis; F31.9 Bipolar disorder, unspecified; F60.89 Other specific personality disorders; F17.200 Nicotine dependence, unspecified, uncomplicated; F12.10 Cannabis abuse, uncomplicated; F14.10 Cocaine abuse, uncomplicated; F16.10 Hallucinogen abuse, uncomplicated; Z91.51 Personal history of suicidal behavior; Z63.8 Other specified problems related to primary support group; Z20.822 Contact with and (suspected) exposure to COVID-19; Z88.0 Allergy status to penicillin; Z88.8 Allergy status to other drugs, medicaments and biological substances; Z91.018 Allergy to other foods

== ENCOUNTER 2022-07-27 05:12 | Inpatient (IN) | payer MEDICAID ==
[~2022-07-27] VITALS: Ht 177.8 cm; Wt 68.2 kg
[~2022-07-27 05:12] MED LIST changes: +CLONI1TA PO; +MIRT-10 PO; +OLAN1TAB16 PO; +OLAN5ZYD PO; +Sodium Chloride Nasal Spray
[2022-07-27] MEDS ORDERED: CLONI1TA PO (13:13)
[2022-07-27] MEDS ORDERED: med rec comment (13:13)
[2022-07-27] MEDS ORDERED: MIRT1TAB15 PO (13:13)
[2022-07-27] MEDS ORDERED: HOME MED LIST COMPLETE! XX SCH (13:20)
[2022-07-27] MEDS ORDERED: NALO4SPR NS (17:11)
[2022-07-27] MEDS ORDERED: BUPR1SUB4 SL (17:11)
[2022-07-27] MEDS ORDERED: PRAZ1CAP PO (17:11)
[2022-07-27] MEDS ORDERED: BUPR150T12 PO (17:11)
[2022-07-27] MEDS ORDERED: MIRT1TAB17 PO (17:11)
[2022-07-27] MEDS ORDERED: NICO1DIS12 TOP (17:11)
[2022-07-27] MEDS ORDERED: QUET100T2 PO (17:11)
[2022-07-27] MEDS: BUPRENORPHINE/NALOXONE 2-0.5MG SUBLINGUAL TABLET(SUBOXONE) SL ONE (19:25)
[2022-07-27] MEDS ORDERED: PRAZOSIN 1 MG CAP PO SCH (21:00)
[2022-07-27] MEDS ORDERED: MIRTAZAPINE 15 MG TAB PO SCH (21:00)
[2022-07-27] MEDS ORDERED: QUEtiapine FUMARATE 100 MG TAB PO ONE (21:00)
[2022-07-27] MEDS ORDERED: BUPRENORPHINE/NALOXONE 2-0.5MG SUBLINGUAL TABLET(SUBOXONE) SL SCH (21:00)
[2022-07-28 00:01] LABS: RSV AMPLIFICATION NEGATIVE (NEGATIVE)
[2022-07-28] MEDS ORDERED: traZODone 50 MG TAB PO PRN (01:35)
[2022-07-28] MEDS ORDERED: MOM 30ML SUSPENSION UDC PO PRN (01:35)
[2022-07-28] MEDS ORDERED: MAALOX 30 ML SUSP *UDC PO PRN (01:35)
[2022-07-28 02:30] VITALS: BP 132/60
[2022-07-28 06:47] VITALS: BP 105/51
[2022-07-28] MEDS: BUPRENORPHINE/NALOXONE 2-0.5MG SUBLINGUAL TABLET(SUBOXONE) SL SCH ×2 (08:02→20:12)
[2022-07-28] MEDS: buPROPion **XL** TABLET 150MG (WELLBUTRIN XL) PO SCH (08:03)
[2022-07-28] MEDS ORDERED: buPROPion 100 MG TAB PO SCH (09:00)
[2022-07-28] MEDS ORDERED: buPROPion **XL** TABLET 150MG (WELLBUTRIN XL) PO SCH (09:00)
[2022-07-28] MEDS ORDERED: BUPRENORPHINE/NALOXONE 2-0.5MG SUBLINGUAL TABLET(SUBOXONE) SL SCH (09:00)
[2022-07-28] MEDS ORDERED: NICOTINE 21MG/24HR 1 EA TRANSDERMAL TD ONE (09:00)
[2022-07-28] MEDS ORDERED: NICOTINE 21MG/24HR 1 EA TRANSDERMAL TOP SCH (09:00)
[2022-07-28] MEDS ORDERED: NICOTINE POLACRILEX 2 MG GUM PO PRN (11:30)
[2022-07-28 18:48] VITALS: BP 120/73
[2022-07-28] MEDS: NICOTINE POLACRILEX 2 MG GUM PO PRN (20:20)
[2022-07-28] MEDS ORDERED: QUEtiapine FUMARATE 100 MG TAB PO SCH (21:00)
[2022-07-28] MEDS: QUEtiapine FUMARATE 50MG TAB PO SCH (22:40)
[2022-07-28] MEDS: PRAZOSIN 1 MG CAP PO SCH (22:41)
[2022-07-28] MEDS: ACETAMINOPHEN TAB 650MG DOSE (2X325MG) PO PRN (22:41)
[2022-07-29 06:48] VITALS: BP 110/56
[2022-07-29] MEDS: buPROPion **XL** TABLET 150MG (WELLBUTRIN XL) PO SCH (09:49)
[2022-07-29] MEDS: BUPRENORPHINE/NALOXONE 2-0.5MG SUBLINGUAL TABLET(SUBOXONE) SL SCH ×2 (09:49→20:35)
[2022-07-29] MEDS: OLANZapine ORAL DISINTEGRATING TAB 5MG PO PRN (13:24)
[2022-07-29] MEDS: NICOTINE POLACRILEX 2 MG GUM PO PRN ×2 (14:37→20:36)
[2022-07-29 16:20] VITALS: BP 143/63
[2022-07-29] MEDS: QUEtiapine FUMARATE 50MG TAB PO SCH (20:35)
[2022-07-29] MEDS: PRAZOSIN 1 MG CAP PO SCH (20:35)
[2022-07-30 07:04] VITALS: BP 112/60
[2022-07-30] MEDS: buPROPion **XL** TABLET 150MG (WELLBUTRIN XL) PO SCH (08:30)
[2022-07-30] MEDS: BUPRENORPHINE/NALOXONE 2-0.5MG SUBLINGUAL TABLET(SUBOXONE) SL SCH ×2 (08:31→20:03)
[2022-07-30] MEDS: NICOTINE POLACRILEX 2 MG GUM PO PRN ×3 (09:17→19:43)
[2022-07-30] MEDS ORDERED: SODIUM CHLORIDE NASAL 0.65% SPRAY BTL (OCEAN) PRN (14:10)
[2022-07-30 16:34] VITALS: BP 112/64
[2022-07-30] MEDS: OLANZapine ORAL DISINTEGRATING TAB 5MG PO PRN (21:36)
[2022-07-30] MEDS: PRAZOSIN 1 MG CAP PO SCH (22:36)
[2022-07-30] MEDS: QUEtiapine FUMARATE 50MG TAB PO SCH (22:36)
[2022-07-30] MEDS: BENZOCAINE 10% 9GM TUBE (ANBESOL) MT PRN (22:38)
[2022-07-31 06:19] VITALS: BP 115/53
[2022-07-31] MEDS: BUPRENORPHINE/NALOXONE 2-0.5MG SUBLINGUAL TABLET(SUBOXONE) SL SCH ×2 (09:44→20:05)
[2022-07-31] MEDS: buPROPion **XL** TABLET 150MG (WELLBUTRIN XL) PO SCH (09:44)
[2022-07-31 14:38] VITALS: BP 118/69
[2022-07-31] MEDS: NICOTINE POLACRILEX 2 MG GUM PO PRN ×2 (15:39→19:44)
[2022-07-31 16:21] VITALS: BP 116/79
[2022-07-31] MEDS: FLUTICASONE PROP 0.05% NASAL SPRAY 16 GM (FLONASE) NARES SCH (17:17)
[2022-07-31] MEDS: QUEtiapine FUMARATE 50MG TAB PO SCH (21:00)
[2022-07-31] MEDS: PRAZOSIN 1 MG CAP PO SCH (23:01)
[2022-08-01] MEDS: QUEtiapine FUMARATE 50MG TAB PO SCH ×2 (00:30→23:00)
[2022-08-01 06:13] VITALS: BP 107/52
[2022-08-01] MEDS: BUPRENORPHINE/NALOXONE 2-0.5MG SUBLINGUAL TABLET(SUBOXONE) SL SCH ×2 (09:07→20:14)
[2022-08-01] MEDS: FLUTICASONE PROP 0.05% NASAL SPRAY 16 GM (FLONASE) NARES SCH (09:07)
[2022-08-01] MEDS: buPROPion **XL** TABLET 150MG (WELLBUTRIN XL) PO SCH (09:07)
[2022-08-01] MEDS: NICOTINE POLACRILEX 2 MG GUM PO PRN ×2 (12:35→17:48)
[2022-08-01 18:39] VITALS: BP 136/70
[2022-08-01] MEDS: PRAZOSIN 1 MG CAP PO SCH (23:01)
[2022-08-02] MEDS: BENZOCAINE 10% 9GM TUBE (ANBESOL) MT PRN (00:07)
[2022-08-02 06:46] VITALS: BP 106/54
[2022-08-02] MEDS: FLUTICASONE PROP 0.05% NASAL SPRAY 16 GM (FLONASE) NARES SCH (09:23)
[2022-08-02] MEDS: buPROPion **XL** TABLET 150MG (WELLBUTRIN XL) PO SCH (09:24)
[2022-08-02] MEDS: BUPRENORPHINE/NALOXONE 2-0.5MG SUBLINGUAL TABLET(SUBOXONE) SL SCH ×2 (09:24→20:15)
[2022-08-02] MEDS: NICOTINE POLACRILEX 2 MG GUM PO PRN ×3 (14:56→23:54)
[2022-08-02] MEDS: SODIUM CHLORIDE NASAL 0.65% SPRAY BTL (OCEAN) PRN ×3 (14:56→22:26)
[2022-08-02 16:16] VITALS: BP 135/64
[2022-08-02] MEDS: QUEtiapine FUMARATE 50MG TAB PO SCH (23:52)
[2022-08-02] MEDS: PRAZOSIN 1 MG CAP PO SCH (23:52)
[2022-08-03 06:20] VITALS: BP 100/54
[2022-08-03] MEDS: buPROPion **XL** TABLET 150MG (WELLBUTRIN XL) PO SCH (08:50)
[2022-08-03] MEDS: FLUTICASONE PROP 0.05% NASAL SPRAY 16 GM (FLONASE) NARES SCH (08:50)
[2022-08-03] MEDS: BUPRENORPHINE/NALOXONE 2-0.5MG SUBLINGUAL TABLET(SUBOXONE) SL SCH ×2 (08:50→20:27)
[2022-08-03] MEDS: NICOTINE POLACRILEX 2 MG GUM PO PRN ×2 (12:11→20:26)
[2022-08-03 16:15] VITALS: BP 119/60
[2022-08-03] MEDS: ACETAMINOPHEN TAB 650MG DOSE (2X325MG) PO PRN (20:27)
[2022-08-03] MEDS: PRAZOSIN 1 MG CAP PO SCH (20:28)
[2022-08-03] MEDS: QUEtiapine FUMARATE 50MG TAB PO SCH (20:28)
[2022-08-04 06:17] VITALS: BP 135/68
[2022-08-04] MEDS: BUPRENORPHINE/NALOXONE 2-0.5MG SUBLINGUAL TABLET(SUBOXONE) SL SCH ×2 (08:09→20:28)
[2022-08-04] MEDS: NICOTINE POLACRILEX 2 MG GUM PO PRN ×2 (08:09→20:35)
[2022-08-04] MEDS: buPROPion **XL** TABLET 150MG (WELLBUTRIN XL) PO SCH (08:09)
[2022-08-04] MEDS: FLUTICASONE PROP 0.05% NASAL SPRAY 16 GM (FLONASE) NARES SCH (08:10)
[2022-08-04] MEDS: OLANZapine ORAL DISINTEGRATING TAB 5MG PO PRN (09:14)
[2022-08-04 15:33] VITALS: BP 100/53
[2022-08-04] MEDS: QUEtiapine FUMARATE 50MG TAB PO SCH (21:47)
[2022-08-04] MEDS: PRAZOSIN 1 MG CAP PO SCH (21:47)
[2022-08-04] MEDS: BENZOCAINE 10% 9GM TUBE (ANBESOL) MT PRN (22:41)
[2022-08-04] MEDS: ACETAMINOPHEN TAB 650MG DOSE (2X325MG) PO PRN (22:41)
[2022-08-05 06:57] VITALS: BP 116/57
[2022-08-05] MEDS: BUPRENORPHINE/NALOXONE 2-0.5MG SUBLINGUAL TABLET(SUBOXONE) SL SCH ×2 (09:00→20:11)
[2022-08-05] MEDS: buPROPion **XL** TABLET 150MG (WELLBUTRIN XL) PO SCH (09:00)
[2022-08-05] MEDS: FLUTICASONE PROP 0.05% NASAL SPRAY 16 GM (FLONASE) NARES SCH (09:00)
[2022-08-05] MEDS: NICOTINE POLACRILEX 2 MG GUM PO PRN ×3 (12:59→20:11)
[2022-08-05] MEDS: BENZOCAINE 10% 9GM TUBE (ANBESOL) MT PRN (15:41)
[2022-08-05] MEDS: ACETAMINOPHEN TAB 650MG DOSE (2X325MG) PO PRN (15:48)
[2022-08-05 18:46] VITALS: BP 133/74
[2022-08-05 22:43] VITALS: BP 118/70
[2022-08-05] MEDS: PRAZOSIN 1 MG CAP PO SCH (22:43)
[2022-08-05] MEDS: QUEtiapine FUMARATE 50MG TAB PO SCH (22:44)
[2022-08-06 06:12] VITALS: BP 102/53
[2022-08-06] MEDS: FLUTICASONE PROP 0.05% NASAL SPRAY 16 GM (FLONASE) NARES SCH (10:51)
[2022-08-06] MEDS: BUPRENORPHINE/NALOXONE 2-0.5MG SUBLINGUAL TABLET(SUBOXONE) SL SCH (10:51)
[2022-08-06] MEDS: buPROPion **XL** TABLET 150MG (WELLBUTRIN XL) PO SCH (10:51)
[2022-08-06] MEDS: NICOTINE POLACRILEX 2 MG GUM PO PRN (10:52)
[2022-08-06] MEDS ORDERED: MINI1CAP PO (11:05)
[2022-08-06] MEDS ORDERED: BUPR150T12 PO (11:05)
[2022-08-06] MEDS ORDERED: QUET50TA4 PO (11:05)
== END 2022-08-06 11:47 | disposition home or self-care (01) | DRG 754 ==
LOC: M ED 05:12 → M ED INP 21:46 → M PSY 07-28 02:18
PROVIDERS: ADMIT Psychiatry & Neurology Psychiatry; ATTEND Psychiatry & Neurology Psychiatry
DX: F32.A Depression, unspecified (principal); F31.9 Bipolar disorder, unspecified; F43.10 Post-traumatic stress disorder, unspecified; F60.3 Borderline personality disorder; F60.2 Antisocial personality disorder; F15.10 Other stimulant abuse, uncomplicated; F12.10 Cannabis abuse, uncomplicated; F17.210 Nicotine dependence, cigarettes, uncomplicated; F16.10 Hallucinogen abuse, uncomplicated; F14.10 Cocaine abuse, uncomplicated; R45.851 Suicidal ideations; Z20.822 Contact with and (suspected) exposure to COVID-19; Z91.51 Personal history of suicidal behavior; Z79.899 Other long term (current) drug therapy; Z88.0 Allergy status to penicillin; Z88.8 Allergy status to other drugs, medicaments and biological substances; Z91.018 Allergy to other foods; Z91.410 Personal history of adult physical and sexual abuse

== ENCOUNTER 2022-08-10 11:07 | Inpatient (IN) | payer MEDICAID ==
[~2022-08-10] VITALS: Ht 177.8 cm; Wt 75.9 kg
[2022-08-10] MEDS: buPROPion **XL** TABLET 150MG (WELLBUTRIN XL) PO SCH (09:00)
[~2022-08-10 11:07] MED LIST changes: +BUPR150T12 PO; +BUPR1SUB4 SL; +MIRT1TAB15 PO; +MIRT1TAB17 PO; +NALO4SPR NS; +NICO1DIS12 TOP; +QUET50TA4 PO; +med rec comment
[2022-08-10 11:58] LABS: HEMATOCRIT 38.5 % (42.0-52.0); HEMOGLOBIN 12.8 g/dl (13.5-17.5); MEAN CORPUSCULAR HEMOGLOBIN 31.1 pg (27.0-33.0); MEAN CORPUSCULAR HGB CONC 33.2 g/dl (32.0-36.5); MEAN CORPUSCULAR VOLUME 93.4 fl (80.0-96.0); PLATELET COUNT, AUTOMATED 275 10^3/uL (150-450); RED BLOOD COUNT 4.12 10^6/uL (4.30-6.10); WHITE BLOOD COUNT 5.8 10^3/uL (4.0-10.0)
[2022-08-10 12:20] LABS: ETHYL ALCOHOL (ETHANOL) < 0.003 % (0.000-0.010)
[2022-08-10 12:22] LABS: ACETAMINOPHEN LEVEL < 2.0 UG/ML (10.0-20.0); ALBUMIN 3.9 G/DL (3.2-5.2); ALKALINE PHOSPHATASE 55 U/L (46-116); ALT/SGPT 49 U/L (7.0-40); AST/SGOT 66 U/L (<34); BILIRUBIN,DIRECT 0.2 MG/DL (<0.4); BILIRUBIN,TOTAL 0.5 MG/DL (0.3-1.2); BLOOD UREA NITROGEN 15 MG/DL (9-23); CALCIUM LEVEL 8.3 MG/DL (8.5-10.1); CARBON DIOXIDE LEVEL 28 MMOL/L (20-31); CHLORIDE LEVEL 101 MMOL/L (98-107); CREATININE FOR GFR 0.79 MG/DL (0.70-1.30); GLOMERULAR FILTRATION RATE > 60.0 (>60); GLUCOSE, FASTING 85 MG/DL (60-100); POTASSIUM SERUM 3.4 MMOL/L (3.5-5.1); SALICYLATE LEVEL < 3.0 MG/DL (<30); SODIUM LEVEL 135 MMOL/L (136-145); TOTAL PROTEIN 7.3 G/DL (5.7-8.2)
[2022-08-10 12:24] LABS: THYROID STIMULATING HORMONE 2.382 uIU/ML (0.55-4.78)
[2022-08-10] MEDS ORDERED: NS 1,000 ML IV ONE (13:00)
[2022-08-10] MEDS ORDERED: HOME MED LIST COMPLETE! XX SCH (13:20)
[2022-08-10 15:53] LABS: BARBITURATES URINE NEGATIVE (NEGATIVE); BENZODIAZEPINES URINE NEGATIVE (NEGATIVE); CANNABINOIDS URINE NEGATIVE (NEGATIVE); COCAINE METABOLITE URINE NEGATIVE (NEGATIVE); METHADONE URINE NEGATIVE (NEGATIVE); PHENCYCLIDINE URINE NEGATIVE (NEGATIVE)
[2022-08-10 15:54] LABS: OPIATES URINE NEGATIVE (NEGATIVE)
[2022-08-10 15:55] LABS: AMPHETAMINES LEVEL URINE POSITIVE (NEGATIVE)
[2022-08-10] MEDS ORDERED: traZODone 50 MG TAB PO PRN (16:15)
[2022-08-10] MEDS ORDERED: MAALOX 30 ML SUSP *UDC PO PRN (16:15)
[2022-08-10] MEDS ORDERED: MOM 30ML SUSPENSION UDC PO PRN (16:15)
[2022-08-10 20:30] VITALS: BP 104/59
[2022-08-10] MEDS: QUEtiapine FUMARATE 50MG TAB PO SCH (21:00)
[2022-08-10] MEDS: PRAZOSIN 1 MG CAP PO SCH (21:00)
[2022-08-11 06:01] VITALS: BP 110/57
[2022-08-11] MEDS: buPROPion **XL** TABLET 150MG (WELLBUTRIN XL) PO SCH (09:00)
[2022-08-11] MEDS: PRAZOSIN 1 MG CAP PO SCH (20:19)
[2022-08-11] MEDS: QUEtiapine FUMARATE 50MG TAB PO SCH (20:19)
[2022-08-11] MEDS: OLANZapine 5 MG TAB PO PRN (20:19)
[2022-08-11] MEDS: ACETAMINOPHEN TAB 650MG DOSE (2X325MG) PO PRN (20:20)
[2022-08-12 05:57] VITALS: BP 117/56
[2022-08-12] MEDS: buPROPion **XL** TABLET 150MG (WELLBUTRIN XL) PO SCH (09:42)
[2022-08-12 16:09] VITALS: BP 118/72
[2022-08-12] MEDS: OLANZapine 5 MG TAB PO PRN (18:08)
[2022-08-12] MEDS: QUEtiapine FUMARATE 50MG TAB PO SCH (21:00)
[2022-08-12] MEDS: PRAZOSIN 1 MG CAP PO SCH (21:00)
[2022-08-13 06:33] VITALS: BP 126/82
[2022-08-13] MEDS: buPROPion **XL** TABLET 150MG (WELLBUTRIN XL) PO SCH (09:24)
[2022-08-13] MEDS: QUEtiapine FUMARATE 50MG TAB PO SCH ×2 (12:09→21:36)
[2022-08-13] MEDS ORDERED: LOPERAMIDE 2 MG CAPLET PO PRN (12:35)
[2022-08-13] MEDS ORDERED: BENZOCAINE 10% 9GM TUBE (ANBESOL) TOP PRN (12:55)
[2022-08-13] MEDS ORDERED: QUEtiapine FUMARATE 200 MG TAB PO SCH (21:00)
[2022-08-13] MEDS ORDERED: BENZOCAINE 10% 9GM TUBE (ANBESOL) TOP SCH (21:00)
[2022-08-13] MEDS: PRAZOSIN 1 MG CAP PO SCH (21:36)
[2022-08-14 06:31] VITALS: BP 136/62
[2022-08-14] MEDS: QUEtiapine FUMARATE 50MG TAB PO SCH ×2 (09:11→22:14)
[2022-08-14] MEDS: buPROPion **XL** TABLET 150MG (WELLBUTRIN XL) PO SCH (09:11)
[2022-08-14 16:12] VITALS: BP_SYST 111; BP_SYST 128; BP_DIAS 59; BP_DIAS 74
[2022-08-14] MEDS: ACETAMINOPHEN TAB 650MG DOSE (2X325MG) PO PRN (17:13)
[2022-08-14] MEDS: PRAZOSIN 1 MG CAP PO SCH (22:14)
[2022-08-15 06:20] VITALS: BP 95/55
[2022-08-15] MEDS: QUEtiapine FUMARATE 50MG TAB PO SCH ×2 (08:35→23:04)
[2022-08-15] MEDS: buPROPion **XL** TABLET 150MG (WELLBUTRIN XL) PO SCH (08:36)
[2022-08-15 17:47] VITALS: BP 118/66
[2022-08-15 23:03] VITALS: BP 127/73
[2022-08-15] MEDS: PRAZOSIN 1 MG CAP PO SCH (23:03)
[2022-08-16 07:12] VITALS: BP 96/58
[2022-08-16] MEDS: QUEtiapine FUMARATE 50MG TAB PO SCH (08:53)
[2022-08-16] MEDS: buPROPion **XL** TABLET 150MG (WELLBUTRIN XL) PO SCH (08:53)
[2022-08-16] MEDS ORDERED: QUET50TA4 PO (10:14)
== END 2022-08-16 10:58 | disposition home or self-care (01) | DRG 754 ==
LOC: M ED 11:07 → M ED INP 16:12 → M PSY 20:29
PROVIDERS: ADMIT Psychiatry & Neurology Psychiatry; ATTEND Psychiatry & Neurology Psychiatry
DX: F32.A Depression, unspecified (principal); R45.851 Suicidal ideations; F12.90 Cannabis use, unspecified, uncomplicated; F14.90 Cocaine use, unspecified, uncomplicated; F15.90 Other stimulant use, unspecified, uncomplicated; F60.89 Other specific personality disorders; F60.3 Borderline personality disorder; F60.2 Antisocial personality disorder; F16.90 Hallucinogen use, unspecified, uncomplicated; Z88.0 Allergy status to penicillin; Z88.8 Allergy status to other drugs, medicaments and biological substances; Z91.018 Allergy to other foods; Z79.899 Other long term (current) drug therapy; B19.20 Unspecified viral hepatitis C without hepatic coma; F17.200 Nicotine dependence, unspecified, uncomplicated

== ENCOUNTER 2022-08-21 21:40 | Inpatient (IN) | payer MEDICAID ==
[~2022-08-21] VITALS: Ht 172.7 cm; Wt 78.6 kg
[2022-08-21 22:25] LABS: HEMATOCRIT 39.2 % (42.0-52.0); HEMOGLOBIN 13.2 g/dl (13.5-17.5); MEAN CORPUSCULAR HEMOGLOBIN 30.7 pg (27.0-33.0); MEAN CORPUSCULAR HGB CONC 33.7 g/dl (32.0-36.5); MEAN CORPUSCULAR VOLUME 91.2 fl (80.0-96.0); PLATELET COUNT, AUTOMATED 246 10^3/uL (150-450); WHITE BLOOD COUNT 12.3 10^3/uL (4.0-10.0)
[2022-08-21] MEDS ORDERED: NS 1,000 ML IV ONE (22:30)
[2022-08-21 22:56] LABS: ETHYL ALCOHOL (ETHANOL) < 0.003 % (0.000-0.010)
[2022-08-21 22:57] LABS: ACETAMINOPHEN LEVEL < 2.0 UG/ML (10.0-20.0); ALKALINE PHOSPHATASE 48 U/L (46-116); ALT/SGPT 37 U/L (7.0-40); AST/SGOT 36 U/L (<34); BILIRUBIN,DIRECT 0.3 MG/DL (<0.4); BILIRUBIN,TOTAL 0.7 MG/DL (0.3-1.2); BLOOD UREA NITROGEN 19 MG/DL (9-23); CALCIUM LEVEL 8.8 MG/DL (8.5-10.1); CARBON DIOXIDE LEVEL 22 MMOL/L (20-31); CHLORIDE LEVEL 104 MMOL/L (98-107); CREATININE FOR GFR 0.94 MG/DL (0.70-1.30); GLOMERULAR FILTRATION RATE > 60.0 (>60); GLUCOSE, FASTING 100 MG/DL (60-100); POTASSIUM SERUM 4.1 MMOL/L (3.5-5.1); SALICYLATE LEVEL < 3.0 MG/DL (<30); SODIUM LEVEL 138 MMOL/L (136-145); TOTAL PROTEIN 7.5 G/DL (5.7-8.2)
[2022-08-21 23:00] LABS: THYROID STIMULATING HORMONE 1.268 uIU/ML (0.55-4.78)
[2022-08-22] MEDS ORDERED: NS 1,000 ML IV ONE
[2022-08-22 01:59] LABS: BARBITURATES URINE NEGATIVE (NEGATIVE); BENZODIAZEPINES URINE NEGATIVE (NEGATIVE); METHADONE URINE NEGATIVE (NEGATIVE); OPIATES URINE NEGATIVE (NEGATIVE); PHENCYCLIDINE URINE NEGATIVE (NEGATIVE)
[2022-08-22 02:00] LABS: AMPHETAMINES LEVEL URINE POSITIVE (NEGATIVE); CANNABINOIDS URINE POSITIVE (NEGATIVE); COCAINE METABOLITE URINE POSITIVE (NEGATIVE)
[2022-08-22] MEDS ORDERED: HOME MED LIST COMPLETE! XX SCH (06:45)
[2022-08-22] MEDS ORDERED: MOM 30ML SUSPENSION UDC PO PRN (12:45)
[2022-08-22] MEDS ORDERED: ACETAMINOPHEN TAB 650MG DOSE (2X325MG) PO PRN (12:45)
[2022-08-22] MEDS ORDERED: MAALOX 30 ML SUSP *UDC PO PRN (12:45)
[2022-08-22] MEDS ORDERED: diphenhydrAMINE 25MG CAP PO PRN (12:45)
[2022-08-22] MEDS: QUEtiapine FUMARATE 50MG TAB PO SCH ×2 (15:10→21:00)
[2022-08-22] MEDS: NICOTINE 21MG/24HR 1 EA TRANSDERMAL TD SCH (15:11)
[2022-08-22] MEDS: PRAZOSIN 1 MG CAP PO SCH (21:00)
[2022-08-23] MEDS: IBUPROFEN 400MG TAB PO PRN ×2 (01:55→21:54)
[2022-08-23 06:38] VITALS: BP 112/61
[2022-08-23] MEDS: NICOTINE 21MG/24HR 1 EA TRANSDERMAL TD SCH (08:25)
[2022-08-23] MEDS: QUEtiapine FUMARATE 50MG TAB PO SCH ×2 (08:26→21:54)
[2022-08-23] MEDS: buPROPion **XL** TABLET 150MG (WELLBUTRIN XL) PO SCH (15:56)
[2022-08-23 17:53] VITALS: BP 118/62
[2022-08-23] MEDS ORDERED: MAGIC MOUTHWASH SUSPENSION BTL SS PRN (21:10)
[2022-08-23] MEDS: PRAZOSIN 1 MG CAP PO SCH (21:54)
[2022-08-24 06:22] VITALS: BP 117/57
[2022-08-24] MEDS: NICOTINE 21MG/24HR 1 EA TRANSDERMAL TD SCH (09:00)
[2022-08-24] MEDS: buPROPion **XL** TABLET 150MG (WELLBUTRIN XL) PO SCH (10:05)
[2022-08-24] MEDS: QUEtiapine FUMARATE 50MG TAB PO SCH (10:06)
[2022-08-24 18:00] VITALS: BP 125/86
[2022-08-24] MEDS: QUEtiapine FUMARATE 200 MG TAB PO SCH (21:00)
[2022-08-24] MEDS: PRAZOSIN 1 MG CAP PO SCH (21:00)
[2022-08-24 23:30] VITALS: BP 125/65
[2022-08-25 06:10] VITALS: BP 125/56
[2022-08-25] MEDS: NICOTINE 21MG/24HR 1 EA TRANSDERMAL TD SCH (09:00)
[2022-08-25] MEDS: buPROPion **XL** TABLET 150MG (WELLBUTRIN XL) PO SCH (09:09)
[2022-08-25] MEDS: QUEtiapine FUMARATE 50MG TAB PO SCH (09:10)
[2022-08-25 17:53] VITALS: BP 115/58
[2022-08-25] MEDS ORDERED: CHLORASEPTIC SPRAY MT PRN (21:00)
[2022-08-25 22:29] VITALS: BP 115/58
[2022-08-25] MEDS: PRAZOSIN 1 MG CAP PO SCH (22:29)
[2022-08-25] MEDS: QUEtiapine FUMARATE 200 MG TAB PO SCH (22:29)
[2022-08-26 07:03] VITALS: BP 109/56
[2022-08-26] MEDS: QUEtiapine FUMARATE 50MG TAB PO SCH (07:51)
[2022-08-26] MEDS: buPROPion **XL** TABLET 150MG (WELLBUTRIN XL) PO SCH (07:51)
== END 2022-08-26 08:31 | DRG 754 ==
LOC: EDBD 21:40 → M ED 21:40 → M ED INP 08-22 12:43 → M PSY 08-22 14:50
PROVIDERS: ADMIT Student in an Organized Health Care Education/Training Program; ATTEND Psychiatry & Neurology Psychiatry
DX: F43.21 Adjustment disorder with depressed mood (principal); R45.851 Suicidal ideations; F39 Unspecified mood [affective] disorder; F60.89 Other specific personality disorders; F60.3 Borderline personality disorder; F60.2 Antisocial personality disorder; F15.14 Other stimulant abuse with stimulant-induced mood disorder; F12.10 Cannabis abuse, uncomplicated; F14.10 Cocaine abuse, uncomplicated; Z79.899 Other long term (current) drug therapy; Z88.0 Allergy status to penicillin; Z88.8 Allergy status to other drugs, medicaments and biological substances; Z91.018 Allergy to other foods; Z91.51 Personal history of suicidal behavior; Z59.00 Homelessness unspecified

== ENCOUNTER 2022-11-12 14:34 | Inpatient (IN) | payer MEDICAID, OTHER ==
[~2022-11-12] VITALS: Ht 177.8 cm; Wt 77.5 kg
[2022-11-12] MEDS ORDERED: MED REC IN PROGRESS XX SCH (15:55)
[2022-11-12] MEDS ORDERED: MED REC CURRENTLY UNOBTAINABLE XX SCH (17:15)
[2022-11-12 18:12] LABS: HEMATOCRIT 42.8 % (42.0-52.0); HEMOGLOBIN 14.2 g/dl (13.5-17.5); MEAN CORPUSCULAR HEMOGLOBIN 29.8 pg (27.0-33.0); MEAN CORPUSCULAR HGB CONC 33.2 g/dl (32.0-36.5); MEAN CORPUSCULAR VOLUME 89.7 fl (80.0-96.0); PLATELET COUNT, AUTOMATED 224 10^3/uL (150-450); RED BLOOD COUNT 4.77 10^6/uL (4.30-6.10); WHITE BLOOD COUNT 5.1 10^3/uL (4.0-10.0)
[2022-11-12 18:35] LABS: ETHYL ALCOHOL (ETHANOL) < 0.003 % (0.000-0.010)
[2022-11-12 18:37] LABS: ALBUMIN 4.1 G/DL (3.2-5.2); ALKALINE PHOSPHATASE 50 U/L (46-116); ALT/SGPT 80 U/L (7.0-40); AST/SGOT 49 U/L (<34); BILIRUBIN,DIRECT 0.3 MG/DL (<0.4); BILIRUBIN,TOTAL 0.6 MG/DL (0.3-1.2); BLOOD UREA NITROGEN 9 MG/DL (9-23); CALCIUM LEVEL 8.9 MG/DL (8.5-10.1); CARBON DIOXIDE LEVEL 26 MMOL/L (20-31); CHLORIDE LEVEL 100 MMOL/L (98-107); CREATININE FOR GFR 0.76 MG/DL (0.70-1.30); ERYTHROCYTE SEDIMENTATION RATE 35 mm/hr (0-15); GLOMERULAR FILTRATION RATE > 60.0 (>60); GLUCOSE, FASTING 108 MG/DL (60-100); POTASSIUM SERUM 3.5 MMOL/L (3.5-5.1); SALICYLATE LEVEL < 3.0 MG/DL (<30); SODIUM LEVEL 137 MMOL/L (136-145)
[2022-11-12 18:38] LABS: ACETAMINOPHEN LEVEL < 2.0 UG/ML (10.0-20.0)
[2022-11-12 18:40] LABS: THYROID STIMULATING HORMONE 1.891 uIU/ML (0.55-4.78)
[2022-11-12 18:44] LABS: PROCALCITONIN 0.32 ng/ml
[2022-11-13] MEDS ORDERED: BACTRIM 160MG/800MG DS TAB PO SCH (09:00)
[2022-11-13 09:20] LABS: BARBITURATES URINE NEGATIVE (NEGATIVE); BENZODIAZEPINES URINE NEGATIVE (NEGATIVE); METHADONE URINE NEGATIVE (NEGATIVE); OPIATES URINE NEGATIVE (NEGATIVE); PHENCYCLIDINE URINE NEGATIVE (NEGATIVE)
[2022-11-13 09:29] LABS: AMPHETAMINES LEVEL URINE POSITIVE (NEGATIVE); CANNABINOIDS URINE POSITIVE (NEGATIVE); COCAINE METABOLITE URINE POSITIVE (NEGATIVE)
[2022-11-13] MEDS ORDERED: IBUPROFEN 400MG TAB PO PRN (12:35)
[2022-11-13] MEDS ORDERED: MAALOX 30 ML SUSP *UDC PO PRN (12:35)
[2022-11-13] MEDS ORDERED: ACETAMINOPHEN TAB 650MG DOSE (2X325MG) PO PRN (12:35)
[2022-11-13] MEDS ORDERED: traZODone 50 MG TAB PO PRN (12:35)
[2022-11-13] MEDS ORDERED: MOM 30ML SUSPENSION UDC PO PRN (12:35)
[2022-11-13] MEDS ORDERED: diphenhydrAMINE 25MG CAP PO PRN (12:35)
[2022-11-13] MEDS ORDERED: MED REC IN PROGRESS XX SCH (13:30)
[2022-11-13] MEDS ORDERED: ARIP10TA32 PO (13:32)
[2022-11-13] MEDS ORDERED: QUET100T2 PO (13:32)
[2022-11-13] MEDS ORDERED: PRAZ1CAP PO (13:32)
[2022-11-13] MEDS ORDERED: CLON-412 PO (13:32)
[2022-11-13] MEDS ORDERED: MIRT-10 PO (13:32)
[2022-11-13] MEDS ORDERED: HOME MED LIST COMPLETE! XX SCH (13:35)
[2022-11-13 14:51] VITALS: BP 125/59; TEMP 97.9; O2SAT 100
[2022-11-13] MEDS ORDERED: cloNIDine 0.1MG TABLET PO PRN (15:05)
[2022-11-13] MEDS ORDERED: ARIPiprazole 10 MG TAB PO PRN (15:05)
[2022-11-13] MEDS ORDERED: NICOTINE 21MG/24HR 1 EA TRANSDERMAL TD PRN (15:20)
[2022-11-13] MEDS: BACTRIM 160MG/800MG DS TAB PO SCH (21:00)
[2022-11-13] MEDS: PRAZOSIN 1 MG CAP PO SCH (21:00)
[2022-11-13] MEDS: MIRTAZAPINE 15 MG TAB PO SCH (21:00)
[2022-11-14] MEDS: BACTRIM 160MG/800MG DS TAB PO SCH ×2 (09:00→21:00)
[2022-11-14] MEDS: PRAZOSIN 1 MG CAP PO SCH (21:00)
[2022-11-14] MEDS: MIRTAZAPINE 15 MG TAB PO SCH (21:00)
[2022-11-14] MEDS ORDERED: ONDANSETRON 4MG ORAL DISINTEGRATING TAB SL PRN (21:35)
[2022-11-15 06:40] VITALS: BP 103/56; TEMP 97.6; O2SAT 98
[2022-11-15] MEDS: BACTRIM 160MG/800MG DS TAB PO SCH ×2 (09:00→21:00)
[2022-11-15] MEDS: PRAZOSIN 1 MG CAP PO SCH (21:00)
[2022-11-15] MEDS: MIRTAZAPINE 15 MG TAB PO SCH (21:00)
[2022-11-15] MEDS: QUEtiapine FUMARATE 100 MG TAB PO PRN (21:30)
[2022-11-16] MEDS: BACTRIM 160MG/800MG DS TAB PO SCH ×2 (08:55→21:00)
[2022-11-16 18:23] VITALS: BP 127/75; TEMP 96.8; O2SAT 100
[2022-11-16] MEDS: PRAZOSIN 1 MG CAP PO SCH (21:00)
[2022-11-16] MEDS: MIRTAZAPINE 15 MG TAB PO SCH (21:00)
[2022-11-16] MEDS: QUEtiapine FUMARATE 100 MG TAB PO PRN (23:22)
[2022-11-17] MEDS: BACTRIM 160MG/800MG DS TAB PO SCH ×2 (08:49→20:17)
[2022-11-17 17:59] VITALS: BP 135/79; TEMP 96.9
[2022-11-17] MEDS: PRAZOSIN 1 MG CAP PO SCH (20:17)
[2022-11-17] MEDS: MIRTAZAPINE 15 MG TAB PO SCH (20:17)
[2022-11-17] MEDS: QUEtiapine FUMARATE 100 MG TAB PO PRN (22:08)
[2022-11-18] MEDS: BACTRIM 160MG/800MG DS TAB PO SCH ×2 (09:00→21:00)
[2022-11-18 18:04] VITALS: BP 110/66; TEMP 97.2; O2SAT 94
[2022-11-18] MEDS: PRAZOSIN 1 MG CAP PO SCH (21:00)
[2022-11-18] MEDS: MIRTAZAPINE 15 MG TAB PO SCH (21:00)
[2022-11-18] MEDS: QUEtiapine FUMARATE 100 MG TAB PO PRN (22:35)
[2022-11-19] MEDS ORDERED: NICO21PAT TD (08:05)
[2022-11-19] MEDS ORDERED: QUET100T2 PO (08:05)
[2022-11-19] MEDS: BACTRIM 160MG/800MG DS TAB PO SCH (09:00)
== END 2022-11-19 12:03 | disposition home or self-care (01) | DRG 758 ==
LOC: M ED 14:34 → EDBD 14:34 → EDUNIT# 14:34 → M ED INP 11-13 12:34 → M PSY 11-13 14:52
PROVIDERS: ADMIT Student in an Organized Health Care Education/Training Program; ATTEND Student in an Organized Health Care Education/Training Program
DX: F63.81 Intermittent explosive disorder (principal); Z91.119 Patient's noncompliance with dietary regimen due to unspecified reason; F14.10 Cocaine abuse, uncomplicated; F41.9 Anxiety disorder, unspecified; F60.2 Antisocial personality disorder; Z88.0 Allergy status to penicillin; Z91.018 Allergy to other foods; Z88.8 Allergy status to other drugs, medicaments and biological substances; Z79.899 Other long term (current) drug therapy; F12.10 Cannabis abuse, uncomplicated

== ENCOUNTER 2023-02-14 13:11 | Inpatient (IN) | payer MEDICAID, OTHER ==
[~2023-02-14] VITALS: Ht 177.8 cm; Wt 66.9 kg
[~2023-02-14 13:11] MED LIST changes: +ARIP10TA32 PO; +CLON-412 PO
[2023-02-14] MEDS ORDERED: MED REC IN PROGRESS XX SCH (14:25)
[2023-02-14] MEDS ORDERED: MED REC CURRENTLY UNOBTAINABLE XX SCH (15:05)
[2023-02-14 15:17] LABS: HEMATOCRIT 37.1 % (42.0-52.0); HEMOGLOBIN 12.3 g/dl (13.5-17.5); MEAN CORPUSCULAR HEMOGLOBIN 30.4 pg (27.0-33.0); MEAN CORPUSCULAR HGB CONC 33.2 g/dl (32.0-36.5); MEAN CORPUSCULAR VOLUME 91.8 fl (80.0-96.0); PLATELET COUNT, AUTOMATED 212 10^3/uL (150-450); RED BLOOD COUNT 4.04 10^6/uL (4.30-6.10); WHITE BLOOD COUNT 5.1 10^3/uL (4.0-10.0)
[2023-02-14 15:44] LABS: ETHYL ALCOHOL (ETHANOL) < 0.003 % (0.000-0.010)
[2023-02-14 15:46] LABS: ALBUMIN 3.2 G/DL (3.2-5.2); ALKALINE PHOSPHATASE 45 U/L (46-116); ALT/SGPT 90 U/L (7.0-40); AST/SGOT 43 U/L (<34); BILIRUBIN,DIRECT 0.2 MG/DL (<0.4); BILIRUBIN,TOTAL 0.4 MG/DL (0.3-1.2); BLOOD UREA NITROGEN 9 MG/DL (9-23); CALCIUM LEVEL 8.9 MG/DL (8.5-10.1); CARBON DIOXIDE LEVEL 28 MMOL/L (20-31); CHLORIDE LEVEL 106 MMOL/L (98-107); CREATININE FOR GFR 0.72 MG/DL (0.70-1.30); GLOMERULAR FILTRATION RATE > 60.0 (>60); GLUCOSE, FASTING 94 MG/DL (60-100); POTASSIUM SERUM 4.1 MMOL/L (3.5-5.1); SALICYLATE LEVEL < 3.0 MG/DL (<30); SODIUM LEVEL 141 MMOL/L (136-145); TOTAL PROTEIN 6.5 G/DL (5.7-8.2)
[2023-02-14 15:48] LABS: THYROID STIMULATING HORMONE 1.502 uIU/ML (0.55-4.78)
[2023-02-14 17:27] LABS: BARBITURATES URINE NEGATIVE (NEGATIVE); BENZODIAZEPINES URINE NEGATIVE (NEGATIVE); CANNABINOIDS URINE NEGATIVE (NEGATIVE); COCAINE METABOLITE URINE NEGATIVE (NEGATIVE); METHADONE URINE NEGATIVE (NEGATIVE); OPIATES URINE NEGATIVE (NEGATIVE); PHENCYCLIDINE URINE NEGATIVE (NEGATIVE)
[2023-02-14 17:34] LABS: AMPHETAMINES LEVEL URINE POSITIVE (NEGATIVE)
[2023-02-14] MEDS ORDERED: MAALOX 30 ML SUSP *UDC PO PRN (22:35)
[2023-02-14] MEDS ORDERED: MOM 30ML SUSPENSION UDC PO PRN (22:35)
[2023-02-15 01:06] VITALS: BP 146/72; TEMP 97.5; O2SAT 99
[2023-02-15] MEDS ORDERED: QUEtiapine FUMARATE 100 MG TAB PO ONE (01:10)
[2023-02-15] MEDS: DICYCLOMINE 10 MG CAP PO PRN (01:22)
[2023-02-15 09:46] VITALS: BP 146/72; TEMP 97.5; O2SAT 99
[2023-02-15 18:01] VITALS: BP 105/65; TEMP 96.3; O2SAT 98
[2023-02-16 14:49] VITALS: BP 105/65; TEMP 96.3; O2SAT 98
[2023-02-17] MEDS ORDERED: HOME MED LIST COMPLETE! XX SCH (19:35)
[2023-02-18] MEDS: DICYCLOMINE 10 MG CAP PO PRN (16:42)
[2023-02-18] MEDS: diphenhydrAMINE 25MG CAP PO PRN (20:30)
[2023-02-19 06:33] VITALS: BP 102/53; TEMP 97.9; O2SAT 98
[2023-02-19 17:13] VITALS: BP 117/66; TEMP 96; O2SAT 100
[2023-02-19] MEDS: DICYCLOMINE 10 MG CAP PO PRN (20:45)
[2023-02-19] MEDS: diphenhydrAMINE 25MG CAP PO PRN (20:45)
[2023-02-20 06:39] VITALS: BP 114/55; TEMP 98.4; O2SAT 100
[2023-02-20] MEDS: SERTRALINE HCL 50 MG TAB PO SCH (11:43)
[2023-02-20 17:07] VITALS: BP 129/79; TEMP 97.4; O2SAT 99
[2023-02-20] MEDS: QUEtiapine FUMARATE 100 MG TAB PO SCH ×2 (21:00→22:45)
[2023-02-21] MEDS: SERTRALINE HCL 50 MG TAB PO SCH (09:56)
[2023-02-21 15:31] VITALS: BP 124/78; TEMP 98.6; O2SAT 99
[2023-02-21] MEDS: ACETAMINOPHEN TAB 650MG DOSE (2X325MG) PO PRN (18:00)
[2023-02-21] MEDS: IBUPROFEN 400MG TAB PO PRN (23:43)
[2023-02-22] MEDS ORDERED: QUEtiapine FUMARATE 100 MG TAB PO ONE (01:00)
[2023-02-22] MEDS: SERTRALINE HCL 50 MG TAB PO SCH (09:56)
[2023-02-22 19:25] VITALS: BP 157/75; TEMP 98.4; O2SAT 100
[2023-02-22] MEDS: IBUPROFEN 400MG TAB PO PRN (22:33)
[2023-02-22] MEDS: QUEtiapine FUMARATE 100 MG TAB PO SCH (23:39)
[2023-02-23] MEDS: SERTRALINE HCL 50 MG TAB PO SCH (09:26)
[2023-02-23 18:26] VITALS: BP 134/84; TEMP 97.8; O2SAT 99
[2023-02-23] MEDS: IBUPROFEN 400MG TAB PO PRN (22:45)
[2023-02-23] MEDS: QUEtiapine FUMARATE 100 MG TAB PO SCH (22:45)
[2023-02-24] MEDS: SERTRALINE HCL 50 MG TAB PO SCH (09:15)
[2023-02-24 16:16] VITALS: BP 123/58; TEMP 98.6; O2SAT 99
[2023-02-24] MEDS: ACETAMINOPHEN TAB 650MG DOSE (2X325MG) PO PRN (19:17)
[2023-02-24] MEDS: QUEtiapine FUMARATE 100 MG TAB PO SCH (22:59)
[2023-02-25] MEDS: SERTRALINE HCL 50 MG TAB PO SCH (09:05)
[2023-02-25] MEDS ORDERED: SERT50TA29 PO (09:40)
[2023-02-25] MEDS ORDERED: QUET100T2 PO (09:40)
[2023-02-25] MEDS ORDERED: DICY1CAP8 PO (09:40)
== END 2023-02-25 10:54 | disposition home or self-care (01) | DRG 776 ==
LOC: M ED 13:11 → M ED INP 22:31 → M PSY 02-15 00:30
PROVIDERS: ADMIT Student in an Organized Health Care Education/Training Program; ATTEND Student in an Organized Health Care Education/Training Program
DX: F15.14 Other stimulant abuse with stimulant-induced mood disorder (principal); F60.89 Other specific personality disorders; R45.851 Suicidal ideations; F60.3 Borderline personality disorder; F41.9 Anxiety disorder, unspecified; D64.9 Anemia, unspecified; R74.01 Elevation of levels of liver transaminase levels; F60.2 Antisocial personality disorder; F17.210 Nicotine dependence, cigarettes, uncomplicated; Z79.899 Other long term (current) drug therapy; Z88.0 Allergy status to penicillin; Z88.1 Allergy status to other antibiotic agents; Z91.018 Allergy to other foods

== ENCOUNTER 2023-03-05 21:39 | Inpatient (IN) | payer MEDICAID, OTHER ==
[~2023-03-05] VITALS: Ht 177.8 cm; Wt 68.1 kg
[~2023-03-05 21:39] MED LIST changes: +DICY1CAP8 PO; +SERT50TA29 PO
[2023-03-05] MEDS ORDERED: CHARCOAL ACTIVATED LIQUID 25GM/120ML BTL PO ONE (21:45)
[2023-03-05 22:03] LABS: VENOUS BASE EXCESS -0.6 (-2.0-2.0); VENOUS HCO3 27.2 MMOL/L (23.0-27.0); VENOUS O2 SATURATION 47.3 % (60.0-80.0); VENOUS PARTIAL PRESSURE CO2 57.1 mmHg (38.0-50.0); VENOUS PARTIAL PRESSURE O2 26.8 mmHg (30.0-50.0); VENOUS PH 7.295 UNITS (7.330-7.430); VENOUS STANDARD HCO3 22.7 MMOL/L; VENOUS TOTAL CO2 28.9 MMOL/L (24.0-28.0)
[2023-03-05 22:07] LABS: BASO % 0.4 % (0.0-1.0); EOS # 0.1 10^3/uL (0.0-0.5); EOS % 2.5 % (0.0-3.0); HEMATOCRIT 43.8 % (42.0-52.0); HEMOGLOBIN 14.1 g/dl (13.5-17.5); LYMPH # 1.6 10^3/uL (1.5-5.0); LYMPH % 33.9 % (24.0-44.0); MEAN CORPUSCULAR HEMOGLOBIN 29.9 pg (27.0-33.0); MEAN CORPUSCULAR HGB CONC 32.2 g/dl (32.0-36.5); MEAN CORPUSCULAR VOLUME 92.8 fl (80.0-96.0); MONO # 0.8 10^3/uL (0.0-0.8); MONO % 16.5 % (2.0-8.0); NEUTROPHILS # 2.3 10^3/uL (1.5-8.5); NEUTROPHILS % 46.5 % (36.0-66.0); PLATELET COUNT, AUTOMATED 262 10^3/uL (150-450); RED BLOOD COUNT 4.72 10^6/uL (4.30-6.10); WHITE BLOOD COUNT 4.8 10^3/uL (4.0-10.0)
[2023-03-05 22:28] LABS: OSMOLALITY SERUM 291 MOSM/KG (275-295)
[2023-03-05 22:31] LABS: ETHYL ALCOHOL (ETHANOL) 0.003 % (0.000-0.010)
[2023-03-05 22:32] LABS: CPK CREATINE PHOSPHOKINASE 166 U/L (46-171); SALICYLATE LEVEL < 3.0 MG/DL (<30)
[2023-03-05 22:33] LABS: ALBUMIN 3.7 G/DL (3.2-5.2); ALKALINE PHOSPHATASE 52 U/L (46-116); ALT/SGPT 187 U/L (7.0-40); AST/SGOT 39 U/L (<34); BILIRUBIN,DIRECT 0.1 MG/DL (<0.4); BILIRUBIN,TOTAL 0.4 MG/DL (0.3-1.2); BLOOD UREA NITROGEN 10 MG/DL (9-23); CALCIUM LEVEL 8.6 MG/DL (8.5-10.1); CARBON DIOXIDE LEVEL 30 MMOL/L (20-31); CHLORIDE LEVEL 103 MMOL/L (98-107); CREATININE FOR GFR 0.69 MG/DL (0.70-1.30); GLOMERULAR FILTRATION RATE > 60.0 (>60); GLUCOSE, FASTING 116 MG/DL (60-100); POTASSIUM SERUM 4.3 MMOL/L (3.5-5.1); SODIUM LEVEL 137 MMOL/L (136-145); TOTAL PROTEIN 7.5 G/DL (5.7-8.2)
[2023-03-05 22:35] LABS: THYROID STIMULATING HORMONE 1.153 uIU/ML (0.55-4.78)
[2023-03-05 22:53] LABS: RSV AMPLIFICATION NEGATIVE (NEGATIVE)
[2023-03-06] MEDS ORDERED: NS 1,000 ML IV ONE (00:55)
[2023-03-06 07:32] LABS: AMPHETAMINES LEVEL URINE NEGATIVE (NEGATIVE); BARBITURATES URINE NEGATIVE (NEGATIVE); BENZODIAZEPINES URINE NEGATIVE (NEGATIVE); CANNABINOIDS URINE NEGATIVE (NEGATIVE); COCAINE METABOLITE URINE NEGATIVE (NEGATIVE); METHADONE URINE NEGATIVE (NEGATIVE); OPIATES URINE NEGATIVE (NEGATIVE); PHENCYCLIDINE URINE NEGATIVE (NEGATIVE)
[2023-03-06] MEDS ORDERED: MED REC IN PROGRESS XX SCH (08:30)
[2023-03-06] MEDS ORDERED: HOME MED LIST COMPLETE! XX SCH (09:50)
[2023-03-06 10:13] LABS: ALBUMIN 3.1 G/DL (3.2-5.2); BILIRUBIN,DIRECT 0.1 MG/DL (<0.4); BILIRUBIN,TOTAL 0.3 MG/DL (0.3-1.2); TOTAL PROTEIN 6.6 G/DL (5.7-8.2)
[2023-03-06] MEDS ORDERED: MOM 30ML SUSPENSION UDC PO PRN (11:45)
[2023-03-06] MEDS ORDERED: IBUPROFEN 400MG TAB PO PRN (11:45)
[2023-03-06] MEDS ORDERED: diphenhydrAMINE 25MG CAP PO PRN (11:45)
[2023-03-06 16:04] VITALS: BP 125/63; TEMP 97.1; O2SAT 100
[2023-03-07] MEDS: SERTRALINE HCL 50 MG TAB PO SCH (21:00)
[2023-03-07] MEDS: QUEtiapine FUMARATE 100 MG TAB PO SCH (21:00)
[2023-03-08 16:58] VITALS: BP 111/67; TEMP 98.6
[2023-03-08] MEDS: ONDANSETRON 4MG ORAL DISINTEGRATING TAB PO PRN (21:10)
[2023-03-08] MEDS: QUEtiapine FUMARATE 100 MG TAB PO SCH (23:00)
[2023-03-08] MEDS: SERTRALINE HCL 50 MG TAB PO SCH (23:00)
[2023-03-09] MEDS ORDERED: DICYCLOMINE 10 MG CAP PO PRN (12:15)
[2023-03-09] MEDS: MAALOX 30 ML SUSP *UDC PO PRN (21:49)
[2023-03-09] MEDS: SERTRALINE HCL 50 MG TAB PO SCH (22:45)
[2023-03-09] MEDS: QUEtiapine FUMARATE 100 MG TAB PO SCH (22:45)
[2023-03-10 14:00] VITALS: BP 146/71; TEMP 98.4; O2SAT 100
[2023-03-10] MEDS: SERTRALINE HCL 50 MG TAB PO SCH (22:51)
[2023-03-10] MEDS: QUEtiapine FUMARATE 100 MG TAB PO SCH (22:52)
[2023-03-11 06:42] VITALS: BP 101/54; TEMP 98.7; O2SAT 98
[2023-03-11 13:26] LABS: HEPATITIS B CORE ANTIBODY IGM NEGATIVE (NEGATIVE)
[2023-03-11 13:50] LABS: HEPATITIS C VIRUS ABY INDEX > 11.00 INDEX (<0.8)
[2023-03-11 16:31] VITALS: BP 107/59; TEMP 98.3; O2SAT 100
[2023-03-12] MEDS: QUEtiapine FUMARATE 100 MG TAB PO SCH ×2 (02:13→22:45)
[2023-03-12] MEDS: SERTRALINE HCL 50 MG TAB PO SCH ×2 (02:13→22:45)
[2023-03-12] MEDS: ONDANSETRON 4MG ORAL DISINTEGRATING TAB PO PRN ×3 (02:13→19:59)
[2023-03-12 18:34] VITALS: BP 102/56; TEMP 98; O2SAT 99
[2023-03-13 06:21] VITALS: BP 111/59; TEMP 98; O2SAT 98
[2023-03-13 18:39] VITALS: BP 99/55; TEMP 96.6; O2SAT 98
[2023-03-13] MEDS: QUEtiapine FUMARATE 50MG TAB PO SCH (23:03)
[2023-03-13] MEDS: SERTRALINE HCL 25 MG TABLET PO SCH (23:03)
[2023-03-14 16:11] VITALS: BP 120/60; TEMP 98.7; O2SAT 98
[2023-03-14] MEDS: SERTRALINE HCL 25 MG TABLET PO SCH (23:43)
[2023-03-14] MEDS: QUEtiapine FUMARATE 50MG TAB PO SCH (23:44)
[2023-03-15] MEDS: OLANZapine ORAL DISINTEGRATING TAB 5MG PO PRN (18:36)
[2023-03-16] MEDS: QUEtiapine FUMARATE 50MG TAB PO SCH ×2 (02:44→22:39)
[2023-03-16] MEDS: SERTRALINE HCL 25 MG TABLET PO SCH ×2 (02:44→22:39)
[2023-03-16 16:11] VITALS: BP 110/58; TEMP 98; O2SAT 96
[2023-03-16] MEDS: MAALOX 30 ML SUSP *UDC PO PRN (23:52)
[2023-03-17 06:34] VITALS: BP 107/52; TEMP 97.6; O2SAT 96
[2023-03-17] MEDS: ACETAMINOPHEN TAB 650MG DOSE (2X325MG) PO PRN (16:27)
[2023-03-17] MEDS: OLANZapine ORAL DISINTEGRATING TAB 5MG PO PRN (16:27)
[2023-03-17 19:09] VITALS: BP_SYST 128; BP_SYST 181; BP_DIAS 77; BP_DIAS 79; TEMP 98.3; O2SAT 100
[2023-03-17] MEDS: QUEtiapine FUMARATE 50MG TAB PO SCH (23:02)
[2023-03-17] MEDS: SERTRALINE HCL 25 MG TABLET PO SCH (23:02)
[2023-03-18 17:36] VITALS: BP 118/74; TEMP 98; O2SAT 99
[2023-03-18] MEDS: QUEtiapine FUMARATE 50MG TAB PO SCH (23:02)
[2023-03-18] MEDS: SERTRALINE HCL 25 MG TABLET PO SCH (23:02)
[2023-03-18] MEDS: ACETAMINOPHEN TAB 650MG DOSE (2X325MG) PO PRN (23:05)
[2023-03-19] MEDS ORDERED: QUET50TA4 PO (08:38)
[2023-03-19] MEDS ORDERED: SERT25TA21 PO (08:38)
== END 2023-03-19 09:09 | disposition home or self-care (01) | DRG 776 ==
LOC: M ED 21:39 → EDBD 21:39 → M ED INP 03-06 11:42 → M PSY 03-06 15:49
PROVIDERS: ADMIT Student in an Organized Health Care Education/Training Program; ATTEND Student in an Organized Health Care Education/Training Program
DX: F15.14 Other stimulant abuse with stimulant-induced mood disorder (principal); F60.2 Antisocial personality disorder; F60.3 Borderline personality disorder; R45.851 Suicidal ideations; Z91.148 Patient's other noncompliance with medication regimen for other reason; Z88.0 Allergy status to penicillin; Z91.018 Allergy to other foods; Z88.8 Allergy status to other drugs, medicaments and biological substances; Z79.899 Other long term (current) drug therapy

== ENCOUNTER 2023-04-07 20:37 | Inpatient (IN) | payer OTHER ==
[~2023-04-07] VITALS: Ht 170.2 cm; Wt 69.9 kg
[~2023-04-07 20:37] MED LIST changes: +SERT25TA21 PO
[2023-04-07 21:42] LABS: HEMATOCRIT 35.3 % (42.0-52.0); HEMOGLOBIN 11.8 g/dl (13.5-17.5); MEAN CORPUSCULAR HEMOGLOBIN 30.4 pg (27.0-33.0); MEAN CORPUSCULAR HGB CONC 33.4 g/dl (32.0-36.5); PLATELET COUNT, AUTOMATED 262 10^3/uL (150-450); RED BLOOD COUNT 3.88 10^6/uL (4.30-6.10); WHITE BLOOD COUNT 7.7 10^3/uL (4.0-10.0)
[2023-04-07 21:53] LABS: ETHYL ALCOHOL (ETHANOL) < 0.003 % (0.000-0.010)
[2023-04-07 21:54] LABS: SALICYLATE LEVEL < 3.0 MG/DL (<30)
[2023-04-07 21:55] LABS: ALBUMIN 3.9 G/DL (3.2-5.2); ALKALINE PHOSPHATASE 57 U/L (46-116); ALT/SGPT 62 U/L (7.0-40); AST/SGOT 52 U/L (<34); BILIRUBIN,DIRECT 0.3 MG/DL (<0.4); BILIRUBIN,TOTAL 0.7 MG/DL (0.3-1.2); BLOOD UREA NITROGEN 20 MG/DL (9-23); CALCIUM LEVEL 8.8 MG/DL (8.5-10.1); CARBON DIOXIDE LEVEL 26 MMOL/L (20-31); CHLORIDE LEVEL 103 MMOL/L (98-107); CREATININE FOR GFR 0.83 MG/DL (0.70-1.30); GLOMERULAR FILTRATION RATE > 60.0 (>60); GLUCOSE, FASTING 84 MG/DL (60-100); SODIUM LEVEL 137 MMOL/L (136-145)
[2023-04-07 21:57] LABS: THYROID STIMULATING HORMONE 4.325 uIU/ML (0.55-4.78)
[2023-04-08] MEDS ORDERED: MED REC CURRENTLY UNOBTAINABLE XX SCH (00:50)
[2023-04-08 09:32] LABS: BARBITURATES URINE NEGATIVE (NEGATIVE); COCAINE METABOLITE URINE NEGATIVE (NEGATIVE)
[2023-04-08 09:33] LABS: AMPHETAMINES LEVEL URINE POSITIVE (NEGATIVE); BENZODIAZEPINES URINE NEGATIVE (NEGATIVE); CANNABINOIDS URINE POSITIVE (NEGATIVE); METHADONE URINE NEGATIVE (NEGATIVE); OPIATES URINE NEGATIVE (NEGATIVE); PHENCYCLIDINE URINE NEGATIVE (NEGATIVE)
[2023-04-08] MEDS ORDERED: MOM 30ML SUSPENSION UDC PO PRN (13:55)
[2023-04-08] MEDS ORDERED: MAALOX 30 ML SUSP *UDC PO PRN (13:55)
[2023-04-08] MEDS ORDERED: traZODone 50 MG TAB PO PRN (13:55)
[2023-04-08] MEDS ORDERED: IBUPROFEN 400MG TAB PO PRN (13:55)
[2023-04-08] MEDS ORDERED: SERT25TA21 PO (14:29)
[2023-04-08] MEDS ORDERED: QUET50TA4 PO (14:29)
[2023-04-08] MEDS ORDERED: HOME MED LIST COMPLETE! XX SCH (14:30)
[2023-04-08 17:16] VITALS: BP 101/54; TEMP 97.8; O2SAT 95
[2023-04-09 06:16] VITALS: BP 136/65; TEMP 97.9; O2SAT 96
[2023-04-09] MEDS ORDERED: diphenhydrAMINE 50MG CAP PO ONE (14:00)
[2023-04-09] MEDS: SERTRALINE HCL 25 MG TABLET PO SCH (21:00)
[2023-04-09] MEDS: QUEtiapine FUMARATE 50MG TAB PO SCH (21:00)
[2023-04-10 06:22] VITALS: BP 103/51; TEMP 97.8; O2SAT 100
[2023-04-10] MEDS ORDERED: diphenhydrAMINE 50MG CAP PO ONE (09:30)
[2023-04-10] MEDS: ACETAMINOPHEN TAB 650MG DOSE (2X325MG) PO PRN (13:27)
[2023-04-10] MEDS: diphenhydrAMINE 25MG CAP PO PRN (13:27)
[2023-04-10] MEDS: SERTRALINE HCL 25 MG TABLET PO SCH (21:00)
[2023-04-10] MEDS: QUEtiapine FUMARATE 50MG TAB PO SCH ×2 (21:00→21:53)
[2023-04-11] MEDS ORDERED: SERTRALINE 100 MG TAB PO ONE (09:00)
[2023-04-11] MEDS ORDERED: IBUPROFEN 800 MG TAB PO ONE (09:00)
[2023-04-11 11:40] VITALS: BP 103/51; TEMP 97.8; O2SAT 100
[2023-04-11 16:27] VITALS: BP 120/61; TEMP 98.2; O2SAT 100
[2023-04-11] MEDS: ACETAMINOPHEN TAB 650MG DOSE (2X325MG) PO PRN (18:33)
[2023-04-12 06:21] VITALS: BP 116/55; TEMP 97.7; O2SAT 98
[2023-04-12 15:49] VITALS: BP 123/62; TEMP 97.4; O2SAT 100
[2023-04-12] MEDS: diphenhydrAMINE 25MG CAP PO PRN (16:25)
[2023-04-12] MEDS: QUEtiapine FUMARATE 50MG TAB PO SCH (21:00)
[2023-04-13 10:35] VITALS: BP 123/62; TEMP 97.4; O2SAT 100
[2023-04-13 11:49] LABS: BASO % 0.5 % (0.0-1.0); EOS # 0.1 10^3/uL (0.0-0.5); EOS % 2.1 % (0.0-3.0); HEMATOCRIT 42.3 % (42.0-52.0); HEMOGLOBIN 13.8 g/dl (13.5-17.5); LYMPH % 17.2 % (24.0-44.0); MEAN CORPUSCULAR HEMOGLOBIN 30.3 pg (27.0-33.0); MEAN CORPUSCULAR HGB CONC 32.6 g/dl (32.0-36.5); MEAN CORPUSCULAR VOLUME 92.8 fl (80.0-96.0); MONO # 0.6 10^3/uL (0.0-0.8); PLATELET COUNT, AUTOMATED 304 10^3/uL (150-450); RED BLOOD COUNT 4.56 10^6/uL (4.30-6.10); WHITE BLOOD COUNT 5.7 10^3/uL (4.0-10.0)
[2023-04-13] MEDS: diphenhydrAMINE 25MG CAP PO PRN ×2 (13:03→19:10)
[2023-04-13 15:23] VITALS: BP 125/60; TEMP 98.5; O2SAT 100
[2023-04-13] MEDS: QUEtiapine FUMARATE 50MG TAB PO SCH (20:29)
[2023-04-14] MEDS: diphenhydrAMINE 25MG CAP PO PRN (09:21)
[2023-04-14] MEDS: QUEtiapine FUMARATE 50MG TAB PO SCH (22:27)
[2023-04-15 06:31] VITALS: BP 106/59; TEMP 97.9; O2SAT 98
[2023-04-15 16:35] VITALS: BP 114/69; TEMP 97.7; O2SAT 95
[2023-04-15] MEDS: QUEtiapine FUMARATE 50MG TAB PO SCH ×2 (21:00→22:50)
[2023-04-16 18:09] VITALS: BP 108/53; TEMP 98.5; O2SAT 97
[2023-04-16] MEDS: QUEtiapine FUMARATE 50MG TAB PO SCH (22:01)
[2023-04-17 06:05] VITALS: BP 91/50; TEMP 98.4; O2SAT 97
[2023-04-17] MEDS: OLANZapine ORAL DISINTEGRATING TAB 5MG PO PRN (15:59)
[2023-04-17 16:32] VITALS: BP 121/58; TEMP 98; O2SAT 99
[2023-04-17] MEDS: QUEtiapine FUMARATE 50MG TAB PO SCH (22:22)
[2023-04-18 06:39] VITALS: BP 94/54; TEMP 98
[2023-04-18] MEDS: QUEtiapine FUMARATE 50MG TAB PO SCH (23:44)
[2023-04-18] MEDS: ACETAMINOPHEN TAB 650MG DOSE (2X325MG) PO PRN (23:45)
[2023-04-19 06:03] VITALS: BP 106/54; TEMP 97.3; O2SAT 97
[2023-04-19 18:22] VITALS: BP 134/80; TEMP 98.2
[2023-04-19] MEDS: QUEtiapine FUMARATE 50MG TAB PO SCH (23:52)
[2023-04-20] MEDS: OLANZapine ORAL DISINTEGRATING TAB 5MG PO PRN (15:35)
[2023-04-20 18:42] VITALS: BP 146/81; TEMP 98.2
[2023-04-20] MEDS: QUEtiapine FUMARATE 50MG TAB PO SCH (23:04)
[2023-04-21 17:54] VITALS: BP 127/59; TEMP 97.6; O2SAT 100
[2023-04-21] MEDS: QUEtiapine FUMARATE 50MG TAB PO SCH (21:00)
[2023-04-21] MEDS ORDERED: PRAZOSIN 1 MG CAP PO SCH (21:00)
[2023-04-21] MEDS ORDERED: SERTRALINE HCL 50 MG TAB PO SCH (21:00)
[2023-04-22 06:39] VITALS: BP 127/51; TEMP 98.9
[2023-04-22] MEDS ORDERED: FLUTICASONE PROP 0.05% NASAL SPRAY 16 GM (FLONASE) NARES SCH (09:00)
[2023-04-22] MEDS: diphenhydrAMINE 25MG CAP PO PRN (09:00)
[2023-04-22] MEDS ORDERED: MINI1CAP PO (09:23)
[2023-04-22] MEDS ORDERED: FLUTISP NARES (09:23)
[2023-04-22] MEDS ORDERED: QUET50TA4 PO (09:23)
[2023-04-22] MEDS ORDERED: ZOLO100T PO (09:23)
[2023-04-22] MEDS ORDERED: SERT50TA29 PO (09:23)
== END 2023-04-22 12:00 | DRG 776 ==
LOC: M ED 20:37 → M ED INP 04-08 13:52 → M PSY 04-08 17:09
PROVIDERS: ADMIT Student in an Organized Health Care Education/Training Program; ATTEND Student in an Organized Health Care Education/Training Program
DX: F15.14 Other stimulant abuse with stimulant-induced mood disorder (principal); F32.A Depression, unspecified; F60.89 Other specific personality disorders; F43.10 Post-traumatic stress disorder, unspecified; F90.9 Attention-deficit hyperactivity disorder, unspecified type; R21 Rash and other nonspecific skin eruption; F41.9 Anxiety disorder, unspecified; R45.851 Suicidal ideations; R74.01 Elevation of levels of liver transaminase levels; F60.2 Antisocial personality disorder; F60.3 Borderline personality disorder; Z91.51 Personal history of suicidal behavior; Z79.899 Other long term (current) drug therapy; Z88.0 Allergy status to penicillin; Z88.8 Allergy status to other drugs, medicaments and biological substances; Z91.018 Allergy to other foods; Z59.00 Homelessness unspecified; Z56.0 Unemployment, unspecified; Z20.822 Contact with and (suspected) exposure to COVID-19; D64.9 Anemia, unspecified

== ENCOUNTER 2024-05-31 20:33 | Inpatient (IN) | payer OTHER ==
[~2024-05-31] VITALS: Ht 177.8 cm; Wt 63.6 kg
[~2024-05-31 20:33] MED LIST changes: -ARIP10TA32 PO; +ARIP10TA63 PO; -ARIP1TAB43 PO; +ARIP20TA51 PO; +FLUO-290 PO; -FLUO10CA18 PO; +FLUTISP NARES; -MIRT-60 PO; +MIRT-89 PO; -NALO4SPR NS; +NALO4SPR20 NS; +RISP-106 PO; -RISP-7 PO; -RISP-9 PO; +RISP0.5T82 PO; +ZOLO100T PO
[2024-05-31 21:36] LABS: HEMATOCRIT 43.2 % (42.0-52.0); HEMOGLOBIN 14.3 g/dl (13.5-17.5); MEAN CORPUSCULAR HEMOGLOBIN 30.8 pg (27.0-33.0); MEAN CORPUSCULAR HGB CONC 33.1 g/dl (32.0-36.5); MEAN CORPUSCULAR VOLUME 93.1 fl (80.0-96.0); PLATELET COUNT, AUTOMATED 226 10^3/uL (150-450); RED BLOOD COUNT 4.64 10^6/uL (4.30-6.10); WHITE BLOOD COUNT 7.4 10^3/uL (4.0-10.0)
[2024-05-31] MEDS ORDERED: MM S100C PO (21:44)
[2024-05-31] MEDS ORDERED: NAPR-1405 PO (21:44)
[2024-05-31] MEDS ORDERED: POLYCARBOPHIL PO (21:44)
[2024-05-31] MEDS ORDERED: OMEP10CASR PO (21:44)
[2024-05-31] MEDS ORDERED: RA N55SP NARES (21:44)
[2024-05-31] MEDS ORDERED: POLY17PO18 PO (21:44)
[2024-05-31 22:12] LABS: AMPHETAMINES LEVEL URINE NEGATIVE (NEGATIVE); BARBITURATES URINE NEGATIVE (NEGATIVE); BENZODIAZEPINES URINE NEGATIVE (NEGATIVE); COCAINE METABOLITE URINE NEGATIVE (NEGATIVE); METHADONE URINE NEGATIVE (NEGATIVE); OPIATES URINE NEGATIVE (NEGATIVE); PHENCYCLIDINE URINE NEGATIVE (NEGATIVE)
[2024-05-31 22:14] LABS: CANNABINOIDS URINE POSITIVE (NEGATIVE); ETHYL ALCOHOL (ETHANOL) < 0.003 % (0.000-0.010)
[2024-05-31 22:16] LABS: ALBUMIN 4.1 G/DL (3.2-5.2); ALKALINE PHOSPHATASE 64 U/L (40-129); ALT/SGPT 11 U/L (7.0-40); AST/SGOT 10 U/L (<34); BILIRUBIN,DIRECT < 0.1 MG/DL (<0.4); BILIRUBIN,TOTAL 0.2 MG/DL (0.3-1.2); BLOOD UREA NITROGEN 16 MG/DL (9-23); CALCIUM LEVEL 9.4 MG/DL (8.5-10.1); CARBON DIOXIDE LEVEL 30 MMOL/L (20-31); CHLORIDE LEVEL 108 MMOL/L (98-107); CREATININE FOR GFR 0.66 MG/DL (0.70-1.30); GLOMERULAR FILTRATION RATE > 60.0 (>60); GLUCOSE, FASTING 93 MG/DL (60-100); POTASSIUM SERUM 4.4 MMOL/L (3.5-5.1); SALICYLATE LEVEL < 3.0 MG/DL (<30); SODIUM LEVEL 143 MMOL/L (136-145); TOTAL PROTEIN 7.6 G/DL (5.7-8.2)
[2024-05-31 22:18] LABS: THYROID STIMULATING HORMONE 1.526 uIU/ML (0.55-4.78)
[2024-05-31] MEDS ORDERED: OMEP-312 PO (22:56)
[2024-05-31] MEDS ORDERED: FIBE62TA PO (22:56)
[2024-05-31] MEDS ORDERED: HOME MED LIST COMPLETE! XX SCH (23:00)
[2024-06-01 18:17] VITALS: BP 120/66; TEMP 97.3; O2SAT 99
[2024-06-01] MEDS ORDERED: MAALOX 30 ML SUSP *UDC PO PRN (21:15)
[2024-06-01] MEDS ORDERED: IBUPROFEN 400MG TAB PO PRN (21:15)
[2024-06-01] MEDS ORDERED: MOM 30ML SUSPENSION UDC PO PRN (21:15)
[2024-06-01] MEDS: diphenhydrAMINE 25MG CAP PO PRN (23:17)
[2024-06-01] MEDS: TEMAZEPAM 7.5 MG CAP PO PRN (23:17)
[2024-06-02 06:16] VITALS: BP 110/63; TEMP 97.6; O2SAT 99
[2024-06-02] MEDS ORDERED: MIRALAX *UNIT DOSE* 17GM PACKET PO PRN (12:55)
[2024-06-02 18:14] VITALS: BP 118/67; TEMP 98.4
[2024-06-02] MEDS: DOCUSATE SODIUM 100MG CAPSULE PO SCH (21:00)
[2024-06-02] MEDS: OMEPRAZOLE 20MG CAP PO SCH (21:20)
[2024-06-02] MEDS: QUEtiapine FUMARATE 50MG TAB PO PRN (21:20)
[2024-06-02] MEDS: DOXYCYCLINE HYCLATE 100MG TABLET PO SCH (21:20)
[2024-06-03 06:38] VITALS: BP 114/61; TEMP 97.2; O2SAT 100
[2024-06-03] MEDS ORDERED: OMEPRAZOLE 20MG CAP PO SCH (09:00)
[2024-06-03] MEDS: FLUZONE VACCINE TRIVALENT PF(2024-25) 0.5ML SYRINGE IM.IMMUN ONE (09:03)
[2024-06-03] MEDS: OLANZapine ORAL DISINTEGRATING TAB 5MG PO PRN (10:06)
[2024-06-03] MEDS: NAPROXEN 250 MG TAB PO SCH (14:39)
[2024-06-03 16:12] VITALS: BP 139/73; TEMP 98; O2SAT 100
[2024-06-04 06:48] VITALS: BP 110/56; TEMP 97.2; O2SAT 96
[2024-06-04] MEDS: SERTRALINE HCL 50 MG TAB PO SCH (09:18)
[2024-06-04] MEDS: ACETAMINOPHEN 325 MG TAB PO PRN (13:17)
[2024-06-04 17:18] VITALS: BP 137/65; TEMP 98.5; O2SAT 99
[2024-06-04] MEDS: QUEtiapine FUMARATE 50MG TAB PO SCH (22:19)
[2024-06-05 06:35] VITALS: BP 101/59; TEMP 97.4; O2SAT 98
[2024-06-05] MEDS: NICOTINE 21MG/24HR 1 EA TRANSDERMAL TD SCH (13:16)
[2024-06-05 15:47] VITALS: BP 122/76; TEMP 98.6; O2SAT 99
[2024-06-06 06:30] VITALS: BP 125/65; TEMP 96.9; O2SAT 100
[2024-06-06 15:38] VITALS: BP 131/72; TEMP 97; O2SAT 96
[2024-06-07 06:27] VITALS: BP 133/67; TEMP 97.2; O2SAT 97
[2024-06-07] MEDS: DIVALPROEX 250MG TAB PO SCH (09:38)
[2024-06-07 16:36] VITALS: BP 139/83; TEMP 98; O2SAT 97
[2024-06-07 18:19] LABS: HEPATITIS B SURFACE ANTIGEN NEGATIVE (NEGATIVE)
[2024-06-07] MEDS: QUEtiapine FUMARATE 50MG TAB PO SCH (22:25)
[2024-06-08 06:51] VITALS: BP 125/83; TEMP 97.3; O2SAT 100
[2024-06-08] MEDS ORDERED: DOXY100T PO (07:16)
[2024-06-08] MEDS ORDERED: DEPA250T32 PO (07:16)
[2024-06-08] MEDS ORDERED: NICO21PAT TD (07:16)
[2024-06-09 16:32] LABS: HEPATITIS B SURF AB QUANT 51 mIU/mL (> OR = 10)
[2024-06-09 16:53] LABS: HEPATITIS A IgG TOTAL REACTIVE (NON-REACTIVE); HEPATITIS B CORE ANTIBODY IGG NON-REACTIVE (NON-REACTIVE)
== END 2024-06-08 12:04 | disposition other institution (70) | DRG 753 ==
LOC: M ED 20:33 → M ED INP 06-01 16:52 → M PSY 06-01 18:13
PROVIDERS: ADMIT Psychiatry & Neurology Psychiatry; ATTEND Psychiatry & Neurology Psychiatry
DX: F31.81 Bipolar II disorder (principal); R45.851 Suicidal ideations; F19.14 Other psychoactive substance abuse with psychoactive substance-induced mood disorder; F60.2 Antisocial personality disorder; F60.3 Borderline personality disorder; F43.10 Post-traumatic stress disorder, unspecified; G89.29 Other chronic pain; F41.9 Anxiety disorder, unspecified; K59.00 Constipation, unspecified; F90.9 Attention-deficit hyperactivity disorder, unspecified type; Z65.2 Problems related to release from prison; Z59.00 Homelessness unspecified; Z56.0 Unemployment, unspecified; Z91.51 Personal history of suicidal behavior; Z88.0 Allergy status to penicillin; Z88.8 Allergy status to other drugs, medicaments and biological substances; Z91.018 Allergy to other foods; Z79.899 Other long term (current) drug therapy; Z79.1 Long term (current) use of non-steroidal anti-inflammatories (NSAID); Z76.5 Malingerer [conscious simulation]

== ENCOUNTER 2024-06-21 19:47 | Inpatient (IN) | payer MEDICAID ==
[~2024-06-21] VITALS: Ht 175.3 cm; Wt 68.7 kg
[~2024-06-21 19:47] MED LIST changes: +DEPA250T32 PO; +DOXY100T PO; +FIBE62TA PO; +MM S100C PO; +NAPR-1405 PO; +OMEP-312 PO; +OMEP10CASR PO; +POLY17PO18 PO; +POLYCARBOPHIL PO; +RA N55SP NARES
[2024-06-21 20:43] LABS: HEMATOCRIT 39.6 % (42.0-52.0); HEMOGLOBIN 13.3 g/dl (13.5-17.5); MEAN CORPUSCULAR HEMOGLOBIN 30.9 pg (27.0-33.0); MEAN CORPUSCULAR HGB CONC 33.6 g/dl (32.0-36.5); MEAN CORPUSCULAR VOLUME 91.9 fl (80.0-96.0); PLATELET COUNT, AUTOMATED 212 10^3/uL (150-450); RED BLOOD COUNT 4.31 10^6/uL (4.30-6.10); WHITE BLOOD COUNT 6.3 10^3/uL (4.0-10.0)
[2024-06-21 21:08] LABS: BARBITURATES URINE NEGATIVE (NEGATIVE); BENZODIAZEPINES URINE NEGATIVE (NEGATIVE); COCAINE METABOLITE URINE NEGATIVE (NEGATIVE); METHADONE URINE NEGATIVE (NEGATIVE); OPIATES URINE NEGATIVE (NEGATIVE); PHENCYCLIDINE URINE NEGATIVE (NEGATIVE)
[2024-06-21 21:10] LABS: ETHYL ALCOHOL (ETHANOL) 0.006 % (0.000-0.010)
[2024-06-21 21:11] LABS: AMPHETAMINES LEVEL URINE POSITIVE (NEGATIVE); CANNABINOIDS URINE POSITIVE (NEGATIVE); VALPROIC ACID (DEPAKOTE) < 3.0 UG/ML (50.0-100.0)
[2024-06-21 21:12] LABS: ALKALINE PHOSPHATASE 60 U/L (40-129); ALT/SGPT 28 U/L (7.0-40); AST/SGOT 33 U/L (<34); BILIRUBIN,DIRECT 0.1 MG/DL (<0.4); BILIRUBIN,TOTAL 0.3 MG/DL (0.3-1.2); BLOOD UREA NITROGEN 7 MG/DL (9-23); CALCIUM LEVEL 9.2 MG/DL (8.5-10.1); CARBON DIOXIDE LEVEL 28 MMOL/L (20-31); CHLORIDE LEVEL 107 MMOL/L (98-107); CREATININE FOR GFR 0.84 MG/DL (0.70-1.30); GLOMERULAR FILTRATION RATE > 60.0 (>60); GLUCOSE, FASTING 102 MG/DL (60-100); POTASSIUM SERUM 3.9 MMOL/L (3.5-5.1); SALICYLATE LEVEL < 3.0 MG/DL (<30); SODIUM LEVEL 143 MMOL/L (136-145); TOTAL PROTEIN 7.3 G/DL (5.7-8.2)
[2024-06-21 21:14] LABS: THYROID STIMULATING HORMONE 0.321 uIU/ML (0.55-4.78)
[2024-06-21] MEDS ORDERED: NICO21DI38 TOP (21:35)
[2024-06-21] MEDS ORDERED: SERT50TA29 PO (21:35)
[2024-06-21] MEDS: BOOSTRIX VACCINE (TETANUS/DIPHTH/ACEL. PERTUSSIS) 0.5ML SYR IM.IMMUN ONE (21:35)
[2024-06-21] MEDS ORDERED: DIVA250T67 PO (21:35)
[2024-06-21] MEDS ORDERED: QUET50TA4 PO (21:35)
[2024-06-21] MEDS ORDERED: SUBO4MIS SL (21:39)
[2024-06-21] MEDS ORDERED: HOME MED LIST COMPLETE! XX SCH (21:40)
[2024-06-21] MEDS ORDERED: diphenhydrAMINE 25MG CAP PO PRN (23:10)
[2024-06-21] MEDS ORDERED: IBUPROFEN 400MG TAB PO PRN (23:10)
[2024-06-21] MEDS ORDERED: MOM 30ML SUSPENSION UDC PO PRN (23:10)
[2024-06-21] MEDS ORDERED: MAALOX 30 ML SUSP *UDC PO PRN (23:10)
[2024-06-21] MEDS ORDERED: ACETAMINOPHEN 325 MG TAB PO PRN (23:10)
[2024-06-22] MEDS: LORazepam 1 MG TAB PO STA (07:53)
[2024-06-22] MEDS: DIVALPROEX 250MG TAB PO SCH (09:00)
[2024-06-22] MEDS: BUPRENORPHINE/NALOXONE 2-0.5MG SUBLINGUAL TABLET(SUBOXONE) SL SCH (09:00)
[2024-06-22] MEDS: BACLOFEN 10 MG TAB PO SCH (09:00)
[2024-06-22] MEDS: cloNIDine 0.1MG TABLET PO SCH (09:00)
[2024-06-22] MEDS ORDERED: ONDANSETRON 4MG ORAL DISINTEGRATING TAB PO PRN (13:15)
[2024-06-22] MEDS: ONDANSETRON 4MG ORAL DISINTEGRATING TAB PO ONE (13:48)
[2024-06-22] MEDS: QUEtiapine FUMARATE 100 MG TAB PO SCH (21:00)
[2024-06-22] MEDS: SERTRALINE HCL 50 MG TAB PO SCH (21:00)
[2024-06-23] MEDS: LIDOCAINE 5% (LIDODERM) PATCH TD SCH (12:25)
[2024-06-24 09:37] VITALS: BP 130/85; TEMP 97.4; O2SAT 98
[2024-06-24] MEDS: OLANZapine ORAL DISINTEGRATING TAB 5MG PO ONE (15:24)
[2024-06-24 16:22] VITALS: BP 117/71; TEMP 97.6; O2SAT 97
[2024-06-25 06:35] VITALS: BP 118/55; TEMP 98.1; O2SAT 98
[2024-06-25] MEDS ORDERED: DIVA250T67 PO (07:08)
[2024-06-25] MEDS ORDERED: LIDO5TD TD (07:08)
[2024-06-25] MEDS ORDERED: NICO21DI38 TOP (07:08)
== END 2024-06-25 11:54 | disposition home or self-care (01) | DRG 753 ==
LOC: M ED 19:47 → M ED INP 23:06 → M PSY 06-22 01:28
PROVIDERS: ADMIT Psychiatry & Neurology Neurology; ATTEND Psychiatry & Neurology Neurology
DX: F31.9 Bipolar disorder, unspecified (principal); R45.850 Homicidal ideations; R45.851 Suicidal ideations; F60.89 Other specific personality disorders; F43.10 Post-traumatic stress disorder, unspecified; F90.9 Attention-deficit hyperactivity disorder, unspecified type; F17.200 Nicotine dependence, unspecified, uncomplicated; Z56.0 Unemployment, unspecified; D64.9 Anemia, unspecified; F19.90 Other psychoactive substance use, unspecified, uncomplicated; M54.9 Dorsalgia, unspecified; G89.29 Other chronic pain; Z88.0 Allergy status to penicillin; Z88.8 Allergy status to other drugs, medicaments and biological substances; Z91.018 Allergy to other foods; Z79.899 Other long term (current) drug therapy; Z62.810 Personal history of physical and sexual abuse in childhood

== ENCOUNTER 2024-08-01 03:20 | Emergency (ER) | payer MEDICAID, OTHER ==
[~2024-08-01] VITALS: Ht 180.3 cm; Wt 62.4 kg
[~2024-08-01 03:20] MED LIST changes: +LIDO5TD TD; +NICO21DI38 TOP; +SUBO4MIS SL
[2024-08-01 04:26] LABS: HEMOGLOBIN 13.4 g/dl (13.5-17.5); MEAN CORPUSCULAR HEMOGLOBIN 30.8 pg (27.0-33.0); MEAN CORPUSCULAR HGB CONC 34.4 g/dl (32.0-36.5); MEAN CORPUSCULAR VOLUME 89.7 fl (80.0-96.0); PLATELET COUNT, AUTOMATED 251 10^3/uL (150-450); RED BLOOD COUNT 4.35 10^6/uL (4.30-6.10)
[2024-08-01 04:50] LABS: ETHYL ALCOHOL (ETHANOL) 0.005 % (0.000-0.010)
[2024-08-01 04:52] LABS: ALKALINE PHOSPHATASE 60 U/L (40-129); ALT/SGPT 18 U/L (7.0-40); AST/SGOT 19 U/L (<34); BILIRUBIN,DIRECT 0.1 MG/DL (<0.4); BILIRUBIN,TOTAL 0.4 MG/DL (0.3-1.2); BLOOD UREA NITROGEN 15 MG/DL (9-23); CALCIUM LEVEL 9.9 MG/DL (8.5-10.1); CARBON DIOXIDE LEVEL 24 MMOL/L (20-31); CHLORIDE LEVEL 105 MMOL/L (98-107); GLOMERULAR FILTRATION RATE > 90.0 (>60); GLUCOSE, FASTING 95 MG/DL (60-100); SALICYLATE LEVEL < 3.0 MG/DL (<30); SODIUM LEVEL 140 MMOL/L (136-145); TOTAL PROTEIN 7.4 G/DL (5.7-8.2)
[2024-08-01 04:57] LABS: THYROID STIMULATING HORMONE 0.963 uIU/ML (0.55-4.78)
[2024-08-01] MEDS ORDERED: BUPR1FIL3 SL (10:24)
[2024-08-01 15:06] LABS: AMPHETAMINES LEVEL URINE NEGATIVE (NEGATIVE); BARBITURATES URINE NEGATIVE (NEGATIVE); BENZODIAZEPINES URINE NEGATIVE (NEGATIVE); CANNABINOIDS URINE NEGATIVE (NEGATIVE); COCAINE METABOLITE URINE NEGATIVE (NEGATIVE); METHADONE URINE NEGATIVE (NEGATIVE); OPIATES URINE NEGATIVE (NEGATIVE); PHENCYCLIDINE URINE NEGATIVE (NEGATIVE)
[2024-08-01] MEDS: BUPRENORPHINE/NALOXONE 2-0.5MG SUBLINGUAL TABLET(SUBOXONE) SL ONE (19:01)
[2024-08-02] MEDS: BUPRENORPHINE/NALOXONE 2-0.5MG SUBLINGUAL TABLET(SUBOXONE) SL ONE (00:35)
[2024-08-02 06:00] VITALS: BP 102/67; TEMP 98.1; O2SAT 99
[2024-08-02] MEDS ORDERED: MED REC IN PROGRESS XX SCH (08:25)
[2024-08-02] MEDS: BUPRENORPHINE/NALOXONE 2-0.5MG SUBLINGUAL TABLET(SUBOXONE) SL SCH (10:20)
== END 2024-08-02 11:36 | disposition home or self-care (01) ==
LOC: M ED 03:20
DX: R45.851 Suicidal ideations (principal); F32.A Depression, unspecified; F60.2 Antisocial personality disorder; Z76.5 Malingerer [conscious simulation]; F17.290 Nicotine dependence, other tobacco product, uncomplicated; Z88.0 Allergy status to penicillin; Z88.8 Allergy status to other drugs, medicaments and biological substances; Z91.018 Allergy to other foods

== ENCOUNTER 2024-12-26 06:55 | Emergency (ER) | payer MEDICAID, SELFPAY ==
[~2024-12-26] VITALS: Ht 177.8 cm; Wt 66.4 kg
[~2024-12-26 06:55] MED LIST changes: +BUPR1FIL3 SL; -DEPA250T32 PO; +DIVA-65 PO; -IBUP-1022 PO; +IBUP600T42 PO; +LEVO75TAB PO
[2024-12-26] MEDS ORDERED: DOXY-441 PO (08:05)
[2024-12-26 08:12] VITALS: BP 113/69; TEMP 98; O2SAT 100
[2024-12-26] MEDS: DOXYCYCLINE HYCLATE 100 MG TABLET PO ONE (08:21)
== END 2024-12-26 08:32 | disposition home or self-care (01) ==
LOC: M ED 08:04
DX: J01.90 Acute sinusitis, unspecified (principal); Z86.19 Personal history of other infectious and parasitic diseases; F17.200 Nicotine dependence, unspecified, uncomplicated; F19.10 Other psychoactive substance abuse, uncomplicated; Z88.0 Allergy status to penicillin; Z88.8 Allergy status to other drugs, medicaments and biological substances; Z91.018 Allergy to other foods

== ENCOUNTER 2025-03-04 14:15 | Emergency (ER) | payer SELFPAY ==
[~2025-03-04] VITALS: Ht 175.3 cm; Wt 69.4 kg
[~2025-03-04 14:15] MED LIST changes: +DOXY-441 PO; -RA N55SP NARES; +[UNRECOGNIZED DRUG - CODE] NARES
[2025-03-04 14:20] VITALS: BP 125/78; TEMP 97.2; O2SAT 99
[2025-03-04] MEDS ORDERED: LIDOCAINE 1% MDV 20 ML VIAL SC ONE (17:15)
== END 2025-03-04 17:12 | disposition left against medical advice (07) ==
LOC: M ED 14:15
DX: M79.621 Pain in right upper arm (principal); Z53.9 Procedure and treatment not carried out, unspecified reason; J45.909 Unspecified asthma, uncomplicated; F19.10 Other psychoactive substance abuse, uncomplicated; Z86.19 Personal history of other infectious and parasitic diseases; F41.9 Anxiety disorder, unspecified; F32.A Depression, unspecified; F43.10 Post-traumatic stress disorder, unspecified; F17.290 Nicotine dependence, other tobacco product, uncomplicated; Z88.0 Allergy status to penicillin; Z88.8 Allergy status to other drugs, medicaments and biological substances; Z91.018 Allergy to other foods